=== PATIENT | male | born 1950 | race Caucasian/White ===

== ENCOUNTER 2020-03-09 08:57 | Outpatient (CLI) | payer MEDICARE, OTHER, SELFPAY ==
--- NOTE | ~2020-03-09 | CT_ITS ---
EXAMINATION: CT chest w con DATE: 03/09/2020 09:30 INDICATION: Right upper lobe lung cancer TECHNIQUE: Transaxial computed tomographic images of the chest were obtained after the administration of 75 cc of Omnipaque 350 intravenous contrast. The dose-length product (DLP) was 386.89 mGy-cm. Ite rative reconstruction was used. COMPARISON: 12/10/2019, 11/26/2018 FINDINGS: There is slight decrease in size of a spiculated right upper lobe nodule which measures 15 mm, previously 19 mm. There is severe emphysema. No new pulmonary nodule is identified. There is no p leural effusion or pneumothorax. No pathologically enlarged thoracic lymph nodes are identified. The heart size is normal. Calcified coronary artery atherosclerosis is noted. There is moderate thoracic spondylosis. IMPRESSION: 1. Right upper lobe nodule with slight decrease in size, consistent with primary bronchogenic carcino ma. Reviewed, dictated and finalized at location A. IMPRESSION: 1. Right upper lobe nodule with slight decrease in size, consistent with primar y bronchogenic carcinoma.
[2020-03-09 09:23] LABS: Estimated Glomerular Filt Rate 35
== END 2020-03-09 08:58 | disposition home or self-care (01) ==
PROVIDERS: PCP Family Medicine; Visit Provider Internal Medicine Hematology & Oncology
DX: C34.11 Malignant neoplasm of upper lobe, right bronchus or lung (principal)
CPT/HCPCS: 36415; 71260; Q9967

== ENCOUNTER 2020-03-16 12:43 | Outpatient (CLI) | payer MEDICARE, OTHER, SELFPAY ==
[2020-03-16 13:00] LABS: Hemoglobin 13.8 g/dL (14.0-18.0); Mean Corpuscular HGB Conc 31.4 g/dl (32-36); Mean Corpuscular Hemoglobin 31.8 pg (26-34); Mean Corpuscular Volume 101.4 fl (80-100); Mean Platelet Volume 10.8 fl (7.4-10.4); Platelet Count Result 124 k/mm3 (150-375); Red Blood Count 4.34 M/mm3 (4.6-6.20); Red Cell Distribution Width 14.9 % (11.5-14.5); White Blood Count 15.8 K/mm3 (4.5-10.0)
[2020-03-16 13:08] LABS: Lymphocytes Absolute Manual 0.79 K/mm3 (1.1-4.5); Monocytes Percent Manual 7 % (3-9); Neutrophils Percent Manual 88 % (46-73); Platelet Estimate Decreased (Adequate); Total Cells Counted 100
[2020-03-16 16:45] LABS: Hemoglobin A1C 7.9 % (<5.7)
[2020-03-16 17:18] LABS: Prostate Specific Antigen 0.3 ng/mL (< OR = 4.0)
== END 2020-03-16 12:44 | disposition home or self-care (01) ==
LOC: ANHLAB 12:46
PROVIDERS: PCP Family Medicine; Referring Provider Physician Assistant Medical; Visit Provider Internal Medicine Hematology & Oncology
DX: E11.65 Type 2 diabetes mellitus with hyperglycemia (principal); J44.9 Chronic obstructive pulmonary disease, unspecified; Z12.5 Encounter for screening for malignant neoplasm of prostate
CPT/HCPCS: 36415; 83036; 84153; 85025

== ENCOUNTER 2020-06-08 09:26 | Outpatient (CLI) | payer MEDICARE, OTHER, SELFPAY ==
--- NOTE | ~2020-06-08 | CT_ITS ---
EXAMINATION: CT chest w con DATE: 06/08/2020 10:10 INDICATION: Malignant neoplasm of the right upper lobe TECHNIQUE: Computed tomography (CT) of the chest was performed with 75 cc Omnipaque 350 intravenous c ontrast. The dose-length product was 243.14 mGy-cm. Automated exposure control and iterative reconstr uction technique were employed. COMPARISON: CT dated 03/09/2020 FINDINGS: Mildly enlarged right hilar lymph node measures 12 mm short axis. No significant pleural or pericardial effusion. Heart size is normal. Calcified granulomas in the spleen. Otherwise, the upper abdomen is unremarkable. There is been moderate-severe emphysema. There is a spiculated right upper lobe mass measuring 1.4 cm AP x1.7 cm transverse x1.6 cm craniocaudal compared with 1.6 x 1.7 x 1.4 c m on prior examination. There are reticulonodular densities in the right middle and lower lobe. No si gnificant pleural or pericardial effusion. There is a developing 5 mm left upper lobe nodule, image 3 1. There is mild-moderate thoracic spondylosis. There is a healed sternal fracture. IMPRESSION: 1. Stable spiculated right upper lobe mass allowing for differences of technique measuring 1.7 cm max imum dimension, compatible with known malignancy. 2: Right hilar lymphadenopathy. Cannot exclude metastatic disease. 3: Reticulonodular densities right middle and lower lobe, most likely infectious/inflammatory althoug h metastatic disease not excluded. 4: Developing 5 mm left upper lobe nodule, nonspecific. This may be infectious/inflammatory although metastatic disease not excluded. 5: Moderate-severe emphysema. Reviewed, dictated and finalized at location B. IMPRESSION: 1. Stable spiculated right upper lobe mass allowing for differences of techniqu e measuring 1.7 cm maximum dimension, compatible with known malignancy. 2: Right hilar lymphadenopathy. Cannot exclude metastatic disease. 3: Reticulonodular densities right middle and lower lobe, most likely infectiou s/inflammatory although metastatic disease not excluded. 4: Developing 5 mm left upper lobe nodule, nonspecific. This may be infectious/ inflammatory although metastatic disease not excluded. 5: Moderate-severe emphysema.
[2020-06-08 09:56] LABS: Estimated Glomerular Filt Rate 40
== END 2020-06-08 09:27 | disposition home or self-care (01) ==
PROVIDERS: PCP Family Medicine; Visit Provider Internal Medicine Hematology & Oncology
DX: C34.11 Malignant neoplasm of upper lobe, right bronchus or lung (principal); J43.9 Emphysema, unspecified; R91.8 Other nonspecific abnormal finding of lung field
CPT/HCPCS: 36415; 71260; Q9967

== ENCOUNTER 2020-06-15 12:43 | Outpatient (CLI) | payer MEDICARE, OTHER, SELFPAY ==
[2020-06-15 12:56] LABS: Basophils Absolute Auto 0.1 K/mm3 (0.0-0.1); Basophils Percent Auto 0.4 % (0.2-1.2); Eosinophils Percent Auto 0.1 % (0-4.4); Hematocrit 43.7 % (42.0-52.0); Hemoglobin 14.1 g/dL (14.0-18.0); Immature Granulocyte Absolute 0.57 K/mm3 (0.00-0.031); Lymphocytes Absolute Auto 1.02 K/mm3 (0.9-3.2); Lymphocytes Percent Auto 5.3 % (18.3-44.2); Mean Corpuscular HGB Conc 32.3 g/dl (32-36); Mean Corpuscular Hemoglobin 33.1 pg (26-34); Mean Corpuscular Volume 102.6 fl (80-100); Mean Platelet Volume 11.2 fl (7.4-10.4); Monocytes Absolute Auto 1.1 K/mm3 (0.1-0.6); Monocytes Percent Auto 5.5 % (2.6-8.5); Neutrophils Absolute Auto 16.5 K/mm3 (1.3-6.7); Neutrophils Percent Auto 85.7 % (45.5-73.1); Platelet Count Result 144 k/mm3 (150-375); Red Blood Count 4.26 M/mm3 (4.6-6.20); Red Cell Distribution Width 15.1 % (11.5-14.5); White Blood Count 19.2 K/mm3 (4.5-10.0)
[2020-06-15 12:59] LABS: Blood Urea Nitrogen 35 mg/dL (8-26); Carbon Dioxide 29 mmol/L (22-30); Chloride 98 mmol/L (98-109); Estimated Glomerular Filt Rate 31; Glucose 204 mg/dL (70-105); Potassium 4.1 mmol/L (3.5-4.9); Sodium 141 mmol/L (138-146)
== END 2020-06-15 12:44 | disposition home or self-care (01) ==
PROVIDERS: PCP Family Medicine; Visit Provider Internal Medicine Hematology & Oncology
DX: C34.11 Malignant neoplasm of upper lobe, right bronchus or lung (principal)
CPT/HCPCS: 36415; 80048; 85025

== ENCOUNTER 2020-08-08 08:56 | Outpatient (CLI) | payer MEDICARE, OTHER, SELFPAY ==
--- NOTE | ~2020-08-08 | CT_ITS ---
EXAMINATION:CT chest w con DATE: 08/08/2020 09:48 INDICATION: Malignant neoplasm of upper lobe of right lung. TECHNIQUE: Computed tomography (CT) of the chest was performed with 75 mL Omnipaque 350 intravenous c ontrast. Automated exposure control and iterative reconstruction technique were employed. The dose-le ngth product (DLP) was 266.22 mGy-cm. COMPARISON: Chest CT 06/08/2020, 03/09/2020, 12/10/2019 FINDINGS: There is moderate emphysema. There is a nodule with adjacent airspace opacities in posterio r segment right upper lobe. The airspace opacities prevent accurate measurement of the nodule. There are 7 mm and 4 mm nodules in left upper lobe. There is mild atelectasis bilaterally. A calcified left lung nodule and calcified left hilar lymph nodes are consistent with old granulomatous disease. No p leural effusion. There is biatrial enlargement of the heart. There are coronary artery calcifications . No pericardial effusion. The central pulmonary arteries are enlarged, consistent with pulmonary art erial hypertension. There is cortical thinning of the kidneys. Calcifications in the spleen are consi stent with old granulomatous disease. There is thoracic levocurvature scoliosis and moderate spondylo sis. There is mild chronic height loss of multiple thoracic vertebral bodies. IMPRESSION: 1. Nodule with new adjacent airspace opacities in posterior segment right upper lobe, consistent with primary bronchogenic carcinoma and radiation pneumonitis. 2. 7 mm and 4 mm nodules in left upper lobe, stable from 03/09/20 and worsened from 12/10/19, which may be benign or less likely metastatic disease. 3. Moderate emphysema. Reviewed, dictated and finalized at location A. IMPRESSION: 1. Nodule with new adjacent airspace opacities in posterior segment right upper lobe, consistent with primary bronchogenic carcinoma and radiation pneumonitis . 2. 7 mm and 4 mm nodules in left upper lobe, stable from 03/09/20 and worsened f rom 12/10/19, which may be benign or less likely metastatic disease. 3. Moderate emphysema.
[2020-08-08 09:34] LABS: Estimated Glomerular Filt Rate 43
== END 2020-08-08 08:57 | disposition home or self-care (01) ==
PROVIDERS: PCP Family Medicine; Visit Provider Internal Medicine Hematology & Oncology
DX: C34.11 Malignant neoplasm of upper lobe, right bronchus or lung (principal); J43.8 Other emphysema
CPT/HCPCS: 71260; Q9967

== ENCOUNTER 2020-08-25 07:35 | Outpatient (CLI) | payer MEDICARE, OTHER, SELFPAY ==
--- NOTE | ~2020-08-25 | PE_ITS ---
EXAMINATION: PET skull to mid thigh DATE: 08/25/2020 09:47 INDICATION: Lung cancer TECHNIQUE: Blood glucose level was 158 mg/dL. 9.686 mCi of 18-fluorodeoxyglucose (18-FDG) was adminis tered i.v. Low dose computed tomography (CT) images were acquired from the base of the brain to the p roximal thighs for attenuation correction and anatomic localization. Positron emission tomography (PE T) images were acquired in the same distribution beginning 78 minutes after injection. Images includi ng fused PET/CT images were reconstructed in axial, coronal, and sagittal planes. Automated exposure control technique was employed. The dose-length product was 902.23mGy-cm. COMPARISON: PET/CT dated 12/22/[address] dated 08/08/2020 FINDINGS: Head/neck: There is symmetric increased activity in the oral cavity, parotid glands, submandibular glands, alexa ngeal muscles and ocular muscles without CT correlate, likely physiologic. No pathologically enlarged cervical lymphadenopathy or suspicious foci of increased FDG uptake in the visualized head or neck. Chest: Moderate increased FDG uptake associated with approximately 1.9 x 1.4 cm spiculated nodule in the rig ht upper lobe with maximal SUV of 6.9 is increased from the maximum SUV on the prior study of 4.9. No significant increased FDG uptake associated with the new region of more peripheral consolidation ext ending posteriorly from the nodule which could represent atelectasis/scarring or postobstructive pneu monia. Moderate emphysema. Mild dependent atelectasis in the bilateral lower lobes. No other suspicio us pulmonary nodules or FDG avid lung lesions. No pathologically enlarged or FDG avid thoracic lympha denopathy. Cardiomegaly with atherosclerotic coronary artery calcifications. Enlargement of the centr al pulmonary arteries consistent with pulmonary arterial hypertension. Abdomen/pelvis/proximal thighs: Physiologic renal accumulation and excretion of FDG activity in the kidneys, bladder and along portio ns of ureters. Dilated right extrarenal pelvis without hydronephrosis. Normal degree and heterogenous pattern of increased uptake throughout the liver without radiologic correlate or dominant FDG avid l esion. The gallbladder, pancreas and bilateral adrenal glands are normal. Multiple splenic calcificat ions consistent with old granulomatous disease. Postoperative change of prior left hemicolectomy with left lower quadrant and colostomy. Multiple surgical clips and scarring at the rectal fossa/presacra l space without evident increased FDG uptake. There is also a distal ileal small bowel anastomosis. M ild to moderate uptake scattered throughout the bowels without radiologic correlate, also likely phys iologic. No other abnormal foci of increased FDG uptake or pathologically enlarged lymphadenopathy in the abdomen, pelvis or proximal thighs. 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 Mild thoracic levoscoliosis. Scattered degenerativ e skeletal changes including mild FDG uptake associated with severe facet osteoarthritis on the right at C4-C5. No suspicious lytic, blastic or FDG avid bone lesions. IMPRESSION: 1. Interval increase in degree of FDG uptake from 4.9 to currently 6.9 maximal SUV associated with a 19 x 14 mm spiculated right upper lobe nodule which is also increased in size of several prior chest CT studies consistent with progression of known lung cancer. No other lesions suspicious for metastat ic disease. 2. Moderate emphysema. 3. Cardiomegaly. 4. Postoperative change of prior left hemicolectomy with end colostomy. Reviewed, dictated and finalized at location A.
[2020-08-25 08:04] LABS: Glucose Point of Care 158 (65-105)
== END 2020-08-25 07:36 | disposition home or self-care (01) ==
LOC: ANHIMG 07:38
PROVIDERS: PCP Family Medicine; Visit Provider Internal Medicine Hematology & Oncology
DX: C34.11 Malignant neoplasm of upper lobe, right bronchus or lung (principal); J43.9 Emphysema, unspecified; I51.7 Cardiomegaly
CPT/HCPCS: 78815; A9552

== ENCOUNTER 2020-11-01 13:12 | Outpatient (CLI) | payer MEDICARE, OTHER, SELFPAY ==
[2020-11-01 13:31] LABS: Hematocrit 42.6 % (42.0-52.0); Hemoglobin 13.6 g/dL (14.0-18.0); Mean Corpuscular HGB Conc 31.9 g/dl (32-36); Mean Corpuscular Hemoglobin 32.9 pg (26-34); Mean Corpuscular Volume 103.1 fl (80-100); Mean Platelet Volume 10.9 fl (7.4-10.4); Platelet Count Result 144 k/mm3 (150-375); Red Blood Count 4.13 M/mm3 (4.6-6.20); Red Cell Distribution Width 14.9 % (11.5-14.5); White Blood Count 17.6 K/mm3 (4.5-10.0)
[2020-11-01 13:39] LABS: Atypical Lymphocytes Present; Lymphocytes Absolute Manual 1.23 K/mm3 (1.1-4.5); Monocytes Absolute Manual 0.52 K/mm3 (0.1-0.90); Monocytes Percent Manual 3 % (3-9); Neutrophils Percent Manual 90 % (46-73); Total Cells Counted 100
[2020-11-01 17:01] LABS: Alanine Aminotransferase 28 U/L (4-50); Albumin Level 3.8 g/dL (3.5-5.1); Alkaline Phosphatase 108 U/L (38-126); Anion Gap 10 mmol/L (8-16); Aspartate Amino Transferase 32 U/L (17-59); Bilirubin,Total 1.1 mg/dL (0.2-1.3); Blood Urea Nitrogen 28 mg/dL (9-20); Calcium 9.4 mg/dL (8.4-10.2); Carbon Dioxide 35 mmol/L (22-30); Chloride 96 mmol/L (98-107); Estimated Glomerular Filt Rate 43; Glucose 233 mg/dL (75-110); Potassium 3.5 mmol/L (3.4-5.0); Sodium 141 mmol/L (137-145)
[2020-11-03 09:48] LABS: Sodium 141 mmol/L (138-146)
[2020-11-03 09:49] LABS: Blood Urea Nitrogen 26 mg/dL (8-26); Carbon Dioxide 33 mmol/L (22-30); Chloride 98 mmol/L (98-109); Estimated Glomerular Filt Rate 40; Glucose 230 mg/dL (70-105); Potassium 3.4 mmol/L (3.5-4.9)
== END 2020-11-01 13:13 | disposition home or self-care (01) ==
LOC: ANHLAB 13:13
PROVIDERS: PCP Family Medicine; Visit Provider Internal Medicine Hematology & Oncology
DX: C34.11 Malignant neoplasm of upper lobe, right bronchus or lung (principal)
CPT/HCPCS: 36415; 80048; 80053; 85025

== ENCOUNTER 2020-12-16 15:33 | Inpatient (IN) | payer MEDICARE, OTHER, SELFPAY ==
[2020-12-16] VITALS (36 sets, daily range): BP systolic 87–130; BP diastolic 66–101; PULSE 77–123; RESP 16–34; TEMP 36.8; O2SAT 88–98; BMI 24.2
--- NOTE | ~2020-12-16 | XR_ITS ---
XR chest 1V portable DATE: 12/29/2020 06:03 INDICATION: Low oxygen saturation TECHNIQUE: Portable AP chest on December 29, 2020 at 0605 hours COMPARISON: December 27, 2020 portable AP chest at 1659 hours 12/16/2020 CT pulmonary scan FINDINGS: Focal asymmetric approximately 2-3 cm mass density overlies the medial right upper lung, suarez spicious for lung cancer versus focal consolidation. Borderline heart size. Aortic arch calcification. Mild infiltrate or atelectasis primarily in the lung bases. Diffuse osteopenia. IMPRESSION: 2-3 cm mass versus consolidation in the right upper lobe; malignancy is not excluded Patchy primarily bilateral lower lung zone infiltrates and/or atelectasis Reviewed, dictated and finalized at location A. INAL JUDGE IMPRESSION: 2-3 cm mass versus consolidation in the right upper lobe; malignanc y is not excluded Patchy primarily bilateral lower lung zone infiltrates and/or atelectasis
--- NOTE | ~2020-12-16 | XR_ITS ---
EXAMINATION: XR chest 1V portable INDICATION: Shortness of breath and productive cough TECHNIQUE: Portable AP chest at 1606 hours COMPARISON: 08/08/2020 FINDINGS: The known right upper lobe nodule is not well demonstrated. There are minimal opacities of the lung bases. No pleural effusion or pneumothorax is identified. Cardiomegaly is noted. IMPRESSION: 1. Minimal airspace opacities of the lung bases, consistent with atelectasis versus pneumonia. Reviewed, dictated and finalized at location A. TYPE FINISHER IMPRESSION: 1. Minimal airspace opacities of the lung bases, consistent with atelectasis ve rsus pneumonia.
--- NOTE | ~2020-12-16 | CT_ITS ---
EXAMINATION: CTA chest PE protocol DATE: 12/16/2020 18:10 INDICATION: Shortness of breath and back pain, history of lung cancer TECHNIQUE: Computed tomography angiography (CTA) of the chest was performed with 100 mL Omnipaque-350 intravenous contrast timed to evaluate the pulmonary arteries. Coronal maximum intensity projection 3D-reconstructions were created by the technologist. The dose-length product (DLP) was 664.94 mGy-cm. Automated exposure control and iterative reconstruction technique were employed. COMPARISON: 08/08/2020 FINDINGS: The pulmonary arteries are well-opacified. No pulmonary embolism is identified. A 4.2 x 4.1 cm mass of the right upper lobe previously measured 2.1 cm. There is no pleural effusion or pneumoth orax. There are no pathologically enlarged lymph nodes. Biatrial enlargement of the heart is noted. T here is moderate emphysema. There are stable 7 mm and 4 mm nodules of the left upper lobe. Minimal ai rspace opacities are present in the lower lobes. There are new compression fractures of the T5 and T6 vertebral bodies. IMPRESSION: 1. No pulmonary embolism. 2. Right upper lobe mass with interval enlargement, consistent with primary bronchogenic carcinoma. 3. Moderate emphysema. Reviewed, dictated and finalized at location A. ESS AND WELLNESS COORDINATOR IMPRESSION: 1. No pulmonary embolism. 2. Right upper lobe mass with interval enlargement, consistent with primary bro nchogenic carcinoma. 3. Moderate emphysema.
--- NOTE | ~2020-12-16 | XR_ITS ---
EXAMINATION: XR chest 1V portable DATE: 01/02/2021 06:32 INDICATION: Shortness of breath. TECHNIQUE: A single frontal view of the chest was obtained. COMPARISON: Chest single view 12/29/20, chest CT 12/16/2020 FINDINGS: The patient is rotated to his right. The lungs are hyperexpanded with lucencies, consistent with emphysema. A calcified left lung nodule is consistent with old granulomatous disease. There is scarring at right lung apex. There is a mass in posterior segment right upper lobe. There are mild ai rspace opacities in the lower lung zones. No pleural effusion or pneumothorax. The heart size is norm al. IMPRESSION: 1. Stable mass in right lung upper lobe, consistent with primary bronchogenic carcinoma and changes o f radiation therapy. 2. Stable mild airspace opacities in the lower lung zones, consistent with atelectasis versus pneumon ia. 3. Severe emphysema. Reviewed, dictated and finalized at location A. M AUDITOR IMPRESSION: 1. Stable mass in right lung upper lobe, consistent with primary bronchogenic c arcinoma and changes of radiation therapy. 2. Stable mild airspace opacities in the lower lung zones, consistent with atel ectasis versus pneumonia. 3. Severe emphysema.
--- NOTE | ~2020-12-16 | XR_ITS ---
XR chest 1V portable 12/27/2020 17:05 Indication: Pneumonia. COPD. Procedure: AP portable chest Comparison: CT and chest x-ray dated 12/16/2020 Findings: There is a masslike density in the right suprahilar region, concerning for malignancy. Ther e are mixed patchy interstitial and airspace infiltrates of both lungs which may represent pneumonia or edema. Possible small right pleural effusion. No pneumothorax. No acute osseous abnormality. Impression: 1: Masslike density right suprahilar region, concerning for malignancy. 2: Mixed diffuse interstitial and airspace infiltrates which may represent pneumonia or edema. Reviewed, dictated and finalized at location A. ING MACHINE OPERATOR Impression: 1: Masslike density right suprahilar region, concerning for malignancy. 2: Mixed diffuse interstitial and airspace infiltrates which may represent pneu monia or edema.
--- NOTE | ~2020-12-16 | CT_ITS ---
EXAMINATION: CT abdomen pelvis wo con DATE: 12/19/2020 10:59 INDICATION: Anaerobic streptococcal bacteremia. TECHNIQUE: Computed tomography (CT) of the abdomen and pelvis was performed without intravenous contr ast. Automated exposure control and iterative reconstruction technique were employed. The dose-length product was 608.80 mGy-cm. COMPARISON: PET/CT dated 08/25/2020 FINDINGS: Small bilateral pleural effusions with mild bibasilar atelectasis. Cardiomegaly. Atherosclerotic pam nary artery calcifications. No pericardial effusion. Multiple splenic calcific lesions consistent wit h old granulomatous disease. Gallbladder is not visualized and likely surgically absent. Liver, pancr eas and bilateral adrenal glands are normal. 1.2 cm exophytic cyst at the lower pole of the left kidn ey. There is an additional 10 mm indeterminate soft tissue density exophytic lesion at the lower pole of the left kidney. Chronic small calcification at the periphery of the upper pole of the right kidn ey. Postoperative change of prior distal colectomy with left lower quadrant and colostomy. Postoperat she changes along the left lower quadrant anterior abdominal wall likely related to prior parastomal hernia repair. There is liquid stool throughout the remaining colon consistent with diarrhea. There a re few diverticula along the transverse colon without adjacent inflammatory change to suggest diverti culitis. Additional distal ileal small bowel anastomotic suture line. No bowel obstruction. The appen taylor is not visualized. No pericecal inflammatory change to suggest acute appendicitis. No interval ch maggie in appearance of chronic postoperative scarring surrounding several surgical clips in the presac ral space. Bladder is normal. Surgical clip within a small fat-containing left inguinal hernia. No fr ee intraperitoneal gas or fluid. No pathologically enlarged abdominal or pelvic lymphadenopathy. Ther e is calcified atherosclerosis of the aorta and many of the other arteries. Fusiform ectasia of the i nfrarenal aorta which measures up to 3.0 x 2.7 cm in maximal diameter. Severe spondylosis at the lumb osacral junction with mild spondylosis of the more cephalad lumbar and lower thoracic spine. Chronic minimal to mild anterior wedging at T11-L2. IMPRESSION: 1. No acute intra-abdominal/pelvic process. 2. Postoperative change of prior cholecystectomy, distal colectomy and left lower quadrant and colost fani and possible appendectomy. 3. Small bilateral pleural effusions. 4. Cardiomegaly. 2.5. 10 mm indeterminate exophytic lesion at the lower pole of the left kidney stati stically most likely to represent a proteinaceous/hemorrhagic cyst although solid neoplasm cannot be excluded. Could consider follow-up pre and postcontrast MRI or CT for definitive determination. Reviewed, dictated and finalized at location B. MINER IMPRESSION: 1. No acute intra-abdominal/pelvic process. 2. Postoperative change of prior cholecystectomy, distal colectomy and left low er quadrant and colostomy and possible appendectomy. 3. Small bilateral pleural effusions. 4. Cardiomegaly. 2.5. 10 mm indeterminate exophytic lesion at the lower pole of the left kidney statistically most likely to represent a proteinaceous/hemorrh agic cyst although solid neoplasm cannot be excluded. Could consider follow-up pre and postcontrast MRI or CT for definitive determination.
--- NOTE | 2020-12-16 15:42 | ECG_ITS ---
Measurements Intervals [place] Rate: 123 P: [place]: 0 QRS: -82 QRSD: 105 T: 84 QT: 318 QTc: 455 Interpretive Statements ATRIAL FIBRILLATION WITH RAPID VENTRICULAR RESPONSE INCOMPLETE RIGHT BUNDLE BRANCH BLOCK LEFT ANTERIOR FASCICULAR BLOCK BORDERLINE ST-T WAVE ABNORMALITY- HIGH LATERAL LEADS BASELINE ARTIFACT- I, II, AVR, V1 ABNORMAL ECG Electronically Signed On 12-16-2020 16:35:37 PLANT SCIENCES PROFESSOR by Bartolo Radford D.O.
[2020-12-16 15:57] LABS: Alveolar/Arterial O2 Gradient 217.6 mmHg; Base Excess ABG 2.4 mEq/l (+/-2.0); Fractional Inspired Oxygen 44 %; HCO3 ABG 25.8 mEq/l (22.0-26.0); Methemoglobin ABG 0.3 %THb (0-1.5); Oxygen Content ABG 17.4 %vol (16.0-22.0); Oxygen Saturation ABG 90.3 % (95.0-100.0); Oxyhemoglobin 87.2 % THb (90.0-100.0); PCO2 ABG 36.5 mmHg (35.0-45.0); PO2 ABG 54.5 mmHg (80.0-100.0); PO2 FiO2 Ratio Arterial Blood 1.24 %; Reduced Hemoglobin 11.5 %THb (0-5.0); Total Hemoglobin 14.2 g/dL (12.0-18.0); pH ABG 7.468 (7.350-7.450)
[2020-12-16 15:59] LABS: Device NASAL CANNULA; Site Drawn RIGHT BRACHIAL
[2020-12-16 16:01] LABS: Basophils Absolute Auto 0.1 K/mm3 (0.0-0.1); Basophils Percent Auto 0.3 % (0.2-1.2); Eosinophils Percent Auto 0.1 % (0-4.4); Hematocrit 43.6 % (42.0-52.0); Hemoglobin 14.3 g/dL (14.0-18.0); Immature Granulocyte Absolute 0.38 K/mm3 (0.00-0.031); Immature Granulocyte Percent A 1.4 % (0-0.5); Lymphocytes Absolute Auto 0.67 K/mm3 (0.9-3.2); Lymphocytes Percent Auto 2.4 % (18.3-44.2); Mean Corpuscular HGB Conc 32.8 g/dl (32-36); Mean Corpuscular Hemoglobin 33.6 pg (26-34); Mean Corpuscular Volume 102.6 fl (80-100); Mean Platelet Volume 11.7 fl (7.4-10.4); Monocytes Absolute Auto 2.1 K/mm3 (0.1-0.6); Monocytes Percent Auto 7.6 % (2.6-8.5); Neutrophils Absolute Auto 24.7 K/mm3 (1.3-6.7); Neutrophils Percent Auto 88.2 % (45.5-73.1); Platelet Count Result 154 k/mm3 (150-375); Red Blood Count 4.25 M/mm3 (4.6-6.20); Red Cell Distribution Width 14.6 % (11.5-14.5)
[2020-12-16 16:11] LABS: INR 0.9; Prothrombin Time 12.8 Seconds (11.1-14.7)
[2020-12-16 16:12] LABS: Partial Thromboplastin Time 24.9 SECONDS (22.3-36.8)
[2020-12-16 16:13] LABS: Lactic Acid Reflex 2.7 mmol/L (0.7-2.1)
[2020-12-16 16:15] LABS: Alanine Aminotransferase 31 U/L (4-50); Alkaline Phosphatase 103 U/L (38-126); Anion Gap 6 mmol/L (8-16); Aspartate Amino Transferase 27 U/L (17-59); Bilirubin,Total 1.2 mg/dL (0.2-1.3); Blood Urea Nitrogen 36 mg/dL (9-20); CRP 4.2 mg/dL (<1.0); Carbon Dioxide 36 mmol/L (22-30); Chloride 95 mmol/L (98-107); Estimated CRCL calculation 40 ml/min; Estimated Glomerular Filt Rate 43; Glucose 296 mg/dL (75-110); Sodium 137 mmol/L (137-145)
[2020-12-16 16:28] LABS: NT Pro B Type Natriuretic Pept 1310 PG/ML (5-100); Troponin I 0.027 ng/mL (0.000-0.034)
--- NOTE | 2020-12-16 17:14 | ED.SOB ---
HPI - SOB/Dyspnea General Chief Complaint: Shortness of Breath/Dyspnea Stated Complaint: resp. distress Time Seen by Provider: 12/16/20 16:46 Source: patient Mode of arrival: EMS Limitations: no limitations History of Present Illness HPI Narrative: This is a 69 year old male that presents to the ER for respiratory distress. Per EMS patient's oxygen saturation was in the mid 80s on his normal 4L NC. Was placed on CPAP with improvement. Patient reports he has been more short of breath the last week. Also reports pain in his back which he has contributed to his lung cancer. No known injury or trauma. Does report a cough productive of green sputum. Denies fever or chest pain. Related Data Home Medications Medication Instructions Recorded Confirmed allopurinol 300 mg tablet 300 mg PO DAILY 10/07/19 12/12/20 blood-glucose meter #1 each 10/07/19 12/12/20 ergocalciferol (vitamin D2) 1,250 50,000 unit PO WEEKLY 10/07/19 12/12/20 mcg (50,000 unit) capsule tamsulosin 0.4 mg capsule 0.4 mg PO DAILY 10/07/19 12/12/20 aspirin 81 mg tablet,delayed 325 mg PO DAILY tablet 12/25/19 12/12/20 release diltiazem HCl 120 mg 120 mg PO ONCE cap 05/25/20 12/12/20 capsule,extended release 12 hr Allergies Allergy/AdvReac Type Severity Reaction Status Date / Time No Known Allergies Allergy Verified 12/12/20 13:44 Review of Systems Review of Systems: Narrative: CONSTITUTIONAL: Denies fever CARDIOVASCULAR: Denies chest pain, or edema. RESPIRATORY: Reports cough and dyspnea. MUSCULOSKELETAL: Reports back pain All systems reviewed & are unremarkable except as noted in HPI and below PMFSH Past Medical History Medical History (Updated 12/16/20 @ 19:38 by Marisa Saba PA-C) Congestive heart failure, unspecified COPD exacerbation Diabetes mellitus Former smoker Leukocytosis Rectal cancer chemoradiation and resection in 2005. Thrombocytopenia Family History Family History Father Family history of premature coronary heart disease Family history of cardiovascular disease Mother Family history of emphysema Grandparent Diabetes mellitus Social History Social History Smoking packs per day: 2 Smoking cigarettes per day: 40.0 Years smoked: 54 Smoking pack-years: 108.00 Smoking status: Former smoker (2014 100+ pack years) Tobacco type: cigarettes Smoking end date: 11/25/14 Alcohol intake: never Gender identity (if verbalized by the patient): Male Spiritual care concerns: No Exam Narrative: Exam Narrative: GENERAL: Chronically ill-appearing, well-nourished, and in no acute distress. HEAD: Normocephalic, atraumatic. EYES: EOMI. ENT: Nares clear, no rhinorrhea or epistaxis. Mucous membranes moist. Oropharynx without tonsillar hypertrophy exudate or other lesions. Bilateral TMs pearly mccullough non-bulging NECK: Supple. No adenopathy or masses. CHEST: No respiratory distress. Rales in the bilateral lower lungs. No wheezes or rhonchi HEART: Irregularly irregular. No murmur heard. Normal peripheral pulses. EXTREMITIES: Normal range of motion. No edema. SKIN: Warm, dry, no rash. NEURO: No focal deficits. Alert and oriented x3. PSYCH: Normal mood and affect Course Vital Signs Vital signs: Vital Signs Temperature 98.2 F 12/16/20 15:35 Pulse Rate 119 H 12/16/20 15:35 Respiratory Rate 32 H 12/16/20 15:35 Blood Pressure 98/82 L 12/16/20 15:35 Pulse Oximetry 88 L 12/16/20 15:35 Temperature 98.2 F 12/16/20 15:35 Pulse Rate 88 12/16/20 20:22 Respiratory Rate 24 H 12/16/20 20:22 Blood Pressure 130/78 12/16/20 20:22 Pulse Oximetry 96 12/16/20 20:22 MDM - SOB/Dyspnea MDM Narrative Medical decision making narrative: Patient presents the emergency department for shortness of breath. History of lung cancer, COPD, and chronic respiratory failure.
[2020-12-16] MEDS: methylPREDNISolone SOD SUCC 125 MG VIAL IV PUSH (17:38)
[2020-12-16] MEDS: SODIUM CHLORIDE 0.9% IV 500 ML 999 ML IV CONT (17:39)
[2020-12-16] MEDS: ALBUTEROL SULFATE (*SP) AEROSOL 1 PUFF 2 PUFF INHALATION (17:51)
--- NOTE | 2020-12-16 18:26 | PC.NURSE ---
ostomy bag replaced due to leakage.
[2020-12-16 18:59] LABS: Reflex Lactic Acid Yes or No Add Lactic
[2020-12-16 19:09] LABS: Lactate Dehydrogenase 500 U/L (313-618)
[2020-12-16 19:36] LABS: Lactic Acid 2.7 mmol/L (0.7-2.1)
--- NOTE | 2020-12-16 22:30 | ADMGEN ---
This patient, Orville Brandt, was admitted to 3 Med Surg Room 326-01. Patient/family oriented to hospital policies and general routines including ID bracelet, bed and alarms, visiting hours, pain management, procedures, bathroom and other care routines, personal items, smoking policy, room service/diet, and visiting hours. Information on how to activate the Rapid Response Team has been discussed. Patient/Family are encouraged to report perceived risks to care and to ask questions if they do not understand what they are told or what they should do.
[2020-12-17] VITALS (11 sets, daily range): BP systolic 97–128; BP diastolic 59–89; PULSE 70–120; RESP 18–20; TEMP 36.2–36.9; O2SAT 94–99
[2020-12-17] MEDS: SODIUM CHLORIDE 0.9% IV 1,000 ML 100 ML IV CONT ×2 (05:28→15:58)
[2020-12-17] MEDS: METOPROLOL SUCCINATE EXT REL 100 MG TABCR PO ×2 (06:39→21:13)
--- NOTE | 2020-12-17 06:50 | PC.NURSE ---
12/16/20 @ 5805: spoke w/ pt's daughter/poa laure caipetra with update.
--- NOTE | 2020-12-17 06:51 | PC.NURSE ---
AFTER DISCUSSION W/ DR. RENDON, PT STATES HIS WISHES TO CHANGE CODE STATUS TO DNR.
[2020-12-17 07:04] LABS: Basophils Percent Auto 0.1 % (0.2-1.2); Hematocrit 39.1 % (42.0-52.0); Hemoglobin 13.1 g/dL (14.0-18.0); Immature Granulocyte Absolute 0.19 K/mm3 (0.00-0.031); Immature Granulocyte Percent A 1.2 % (0-0.5); Lymphocytes Absolute Auto 0.39 K/mm3 (0.9-3.2); Lymphocytes Percent Auto 2.5 % (18.3-44.2); Mean Corpuscular HGB Conc 33.5 g/dl (32-36); Mean Corpuscular Hemoglobin 33.8 pg (26-34); Mean Corpuscular Volume 100.8 fl (80-100); Mean Platelet Volume 11.6 fl (7.4-10.4); Monocytes Absolute Auto 0.3 K/mm3 (0.1-0.6); Monocytes Percent Auto 1.7 % (2.6-8.5); Neutrophils Absolute Auto 14.9 K/mm3 (1.3-6.7); Neutrophils Percent Auto 94.5 % (45.5-73.1); Platelet Count Result 124 k/mm3 (150-375); Red Blood Count 3.88 M/mm3 (4.6-6.20); Red Cell Distribution Width 14.4 % (11.5-14.5); White Blood Count 15.8 K/mm3 (4.5-10.0)
[2020-12-17 07:17] LABS: Lactic Acid Reflex 1.3 mmol/L (0.7-2.1)
--- NOTE | 2020-12-17 07:20 | PM.IMHP ---
H&P: HPI History of Present Illness Date/Time: 12/17/20 06:00 Chief Complaint: Shortness of breath Narrative: Orville Brandt is a 69 year old male with a past medical history of COPD on chronic home O2 of 3.5 L, primary bronchogenic carcinoma and chronic atrial fibrillation who presented to the ER lived increased shortness of breath and back pain with coughing. The patient arrived to the ER via EMS with CPAP in place. The patient reports that for the last 3 or 4 days he had been having increased shortness of breath. He reported felt like he could not take any air in. He is having pain between his shoulder blades with breathing. He always has a chronic productive cough. His cough is always productive of light green sputum. His amount of sputum production has not changed. He has not had any fevers or chills. He denies any palpitations or orthopnea. He has not noticed any lower extremity swelling. He denies any recent ill contacts or known COVID-19 exposures. He has not had any loss of sense of taste or smell. When EMS arrived on scene the patient was satting 80% on 4 L nasal cannula. His oxygen saturations improved on CPAP therapy. He does report significant improvement in his shortness of breath with albuterol use. He has been using his albuterol several times a day at home. He is post be on 3 L of oxygen at rest and up to 5 L of oxygen with activity. Instead he usually just keeps his oxygen on 3.5 L at all times. Review of Systems Review of Systems: Narrative: 12 systems were reviewed with pertinent positives and negatives per HPI. Except as documented in the HPI, all other systems were reviewed and are negative. [facility] Past Medical History Medical History (Updated 12/17/20 @ 08:01 by Maria Esther Trotter DO) Chronic atrial fibrillation Chronic kidney disease, stage 3 Chronic obstructive pulmonary disease Chronic respiratory failure with hypoxia and hypercapnia Closed compression fracture of thoracic vertebra Combined systolic and diastolic congestive heart failure Diabetes mellitus Former smoker Gout RICHY (obstructive sleep apnea) Pulmonary hypertension Severe Rectal cancer chemoradiation and resection in 2005. Thrombocytopenia Surgical History Surgical History (Updated 12/17/20 @ 07:34 by Maria Esther Trotter DO) Colostomy in place History of appendectomy History of back surgery History of colectomy Colectomy due to rectal cancer in 1999 6 with subsequent small-bowel obstruction requiring ileostomy and subsequent revision of ileostomy back to a colostomy History of ileostomy Hx of cholecystectomy Family History Family History (Updated 12/17/20 @ 07:39 by Maria Esther Trotter DO) Father , at age 59 Acute myocardial infarction, Onset Age: 59 Heart disease Mother , At age 76 COPD (chronic obstructive pulmonary disease) Grandparent Diabetes mellitus Sibling COPD (chronic obstructive pulmonary disease) Multiple siblings Colon cancer Younger brother Social History Social History (Updated 12/17/20 @ 07:46 by Maria Esther Trotter DO) Social History: He has been since 2013 he lives in [place]. He has 4 biologic children and 3 step children. He served in the during [place] where he received for gunshot wound. He is a former smoker and smoked 1.5 packs per day on average at smoked for at least 54 years. He quit smoking in 2014. He used to drink heavily but denies history of alcoholism. He at 1 point drink 12 beers a day. He now only rarely drinks alcohol. He is 1 of 7 children. He is the oldest son. All of his siblings are still living. Primary care physician: Dr. You Box Code status: DNR per patient request. He states that he is okay with pressors and noninvasive therapies. Healthcare power of workers compensation attorney: Daughter Smoking packs per day: 2 Smoking cigarettes per day: 40.0 Years smoked: 54 Smoking pack-years: 108.00 Marty
[2020-12-17 07:22] LABS: Anion Gap 7 mmol/L (8-16); Blood Urea Nitrogen 39 mg/dL (9-20); Calcium 9.2 mg/dL (8.4-10.2); Carbon Dioxide 33 mmol/L (22-30); Chloride 97 mmol/L (98-107); Estimated CRCL calculation 37 ml/min; Estimated Glomerular Filt Rate 40; Glucose 226 mg/dL (75-110); Sodium 137 mmol/L (137-145)
[2020-12-17] MEDS: INSULIN ASPART (*BKC) 100 UNITS/ML SUB-Q ×3 (07:57→17:58)
[2020-12-17] MEDS: ATORVASTATIN 40 MG TABLET PO (08:03)
[2020-12-17] MEDS: allopurinoL 300 MG TABLET PO (08:03)
[2020-12-17] MEDS: OMEGA 3 POLYUNSAT FATTY ACIDS 1 GM CAP PO ×4 (08:04→21:20)
[2020-12-17] MEDS: PANTOPRAZOLE SOD SESQUIHYDRATE 20 MG TAB PO (08:04)
[2020-12-17] MEDS: ASCORBIC ACID 500 MG TABLET BY MOUTH (08:04)
[2020-12-17] MEDS: TAMSULOSIN HCL 0.4 MG CAPSULE PO (08:04)
[2020-12-17] MEDS: predniSONE 10 MG TABLET PO (08:04)
[2020-12-17] MEDS: FLUTICASONE/UMECLIDIN/VILANTER 100-62.5-25 MCG ELLIPTA 1 PUFF INHALATION (08:06)
[2020-12-17 08:22] LABS: Glucose Point of Care 206 (65-105)
[2020-12-17 12:11] LABS: Glucose Point of Care 242 (65-105)
--- NOTE | 2020-12-17 16:36 | PM.IMPN ---
Progress Note: A&P Assessment and Plan (1) Sepsis: Code(s): A41.9 - Sepsis, unspecified organism Status: Acute Assessment and Plan: Present on admission with lactic acidosis, leukocytosis with left shift and tachycardia. [place] related to the pneumonia and bacteremia. Only 1 blood culture has been resulted and is positive for gram-positive cocci in chains in anaerobic bottle only. White count better today. Continue Rocephin and azithromycin. Vancomycin to be added. Follow up on blood culture results. (2) Pneumonia: Qualifiers: Laterality: bilateral Lung location: lower lobe of lung Pneumonia type: due to unspecified organism Qualified Code(s): J18.9 - Pneumonia, unspecified organism Code(s): J18.9 - Pneumonia, unspecified organism Status: Acute Assessment and Plan: CTA showing no pulmonary emboli. Minimal airspace opacities bilateral lower lobes noted. Patient has chronic respiratory failure on home O2 at 3L at rest and 4L with activity and uses Trilogy at night. Patient is close to baseline. Albuterol available as needed. Patient eating well so will stop IV fluids. (3) Malignant neoplasm of upper lobe, right bronchus or lung: Code(s): C34.11 - Malignant neoplasm of upper lobe, right bronchus or lung Status: Acute Assessment and Plan: CTA Chest showing right upper lobe 4.2 cm mass that has doubled in size since July. Patient has a medically inoperable early stage lung cancer reviewed he is not a candidate for surgery or even biopsy due to his severe COPD. He completed course of SBRT from 01/19-02/02/20 and again 09/08-09/15/20. Plans for PET scan at the end of the month. (4) Atrial fibrillation: Qualifiers: Atrial fibrillation type: unspecified Qualified Code(s): I48.91 - Unspecified atrial fibrillation Code(s): I48.91 - Unspecified atrial fibrillation Status: Acute Assessment and Plan: EKG shows atrial fibrillation with RVR. Patient on tele and showing persistent AFib with HR mostly below 105. Continue Toprol and Cardizem. Not on usp anticoagulation but does take ASA a few times per week. Continue tele. (5) Type 2 diabetes mellitus with hyperglycemia: Code(s): E11.65 - Type 2 diabetes mellitus with hyperglycemia Status: Acute Assessment and Plan: A1c 7.9 in February. The patient's blood glucose was reviewed on 12/17 Glucose in the 200-240 range. Continue AccuCheks covering with sliding scale. Hypoglycemia protocol available as needed. Continue current medications. (6) Compression fracture: Status: Acute Assessment and Plan: CTA chest showing new compression fractures of the T5 and T6 vertebral bodies. Increase activity as tolerated. Patient relatively asymptomatic from this. (7) DVT prophylaxis: Code(s): Z29.9 - Encounter for prophylactic measures, unspecified Status: Acute Assessment and Plan: Lovenox Subjective Date/time seen: 12/17/20 16:36 Interval history: Date of service 12/17 69-year-old male with atrial fibrillation, lung cancer, chronic respiratory failure, COPD, CHF, diabetes, pulmonary hypertension and CKD here for increasing shortness of breath. Patient states his cough is looser today. No chest pain. No nausea or vomiting. Eating well. He has chronic anosmia. He is not sure if his atrial fibrillation is chronic because he does not feel it. He has blackish stools chronically from iron. Exam Narrative: Exam Narrative: AF 98.4 109/66 110 20 95% 4L Gen - NARD sitting up in bed Chest -distant breath sounds. No wheezing CV -irregularly-irregular. Tachycardic. Tele showing AFib with HR mostly below 105. Abd -soft. Non tender. Positive bowel sounds. Colostomy in the left lower quadrant with black stool in the bag. Ext - No pedal edema Neuro - Alert and oriented. Nonfocal exam. Psych - Nml mood and affect
[2020-12-17] MEDS: ENOXAPARIN 40 MG/0.4 ML SYRINGE SUB-Q (17:56)
[2020-12-17 18:11] LABS: Glucose Point of Care 263 (65-105)
[2020-12-17] MEDS: traZODone HCL 50 MG TABLET PO (21:20)
[2020-12-17 21:29] LABS: Glucose Point of Care 142 (65-105)
[2020-12-18] VITALS (13 sets, daily range): BP systolic 103–128; BP diastolic 59–84; PULSE 82–104; RESP 16–22; TEMP 36.3–36.9; O2SAT 92–100
[2020-12-18 00:20] LABS: SARS-CoV-2 RNA PCR Negative
[2020-12-18 06:59] LABS: Basophils Percent Auto 0.2 % (0.2-1.2); Eosinophils Percent Auto 0.1 % (0-4.4); Hematocrit 36.8 % (42.0-52.0); Hemoglobin 12.1 g/dL (14.0-18.0); Immature Granulocyte Absolute 0.24 K/mm3 (0.00-0.031); Immature Granulocyte Percent A 1.3 % (0-0.5); Immature Platelet Fraction Pct 8.6 % (0.9-11.2); Lymphocytes Absolute Auto 0.46 K/mm3 (0.9-3.2); Lymphocytes Percent Auto 2.5 % (18.3-44.2); Mean Corpuscular HGB Conc 32.9 g/dl (32-36); Mean Corpuscular Hemoglobin 33.6 pg (26-34); Mean Corpuscular Volume 102.2 fl (80-100); Mean Platelet Volume 11.9 fl (7.4-10.4); Monocytes Absolute Auto 1.2 K/mm3 (0.1-0.6); Monocytes Percent Auto 6.8 % (2.6-8.5); Neutrophils Absolute Auto 16.1 K/mm3 (1.3-6.7); Neutrophils Percent Auto 89.1 % (45.5-73.1); Platelet Count Result 131 k/mm3 (150-375); Red Cell Distribution Width 14.4 % (11.5-14.5); White Blood Count 18.1 K/mm3 (4.5-10.0)
[2020-12-18 07:09] LABS: Hemoglobin A1C 6.4 % (<5.7)
[2020-12-18 07:26] LABS: Albumin Level 3.2 g/dL (3.5-5.1); Anion Gap 5 mmol/L (8-16); Blood Urea Nitrogen 45 mg/dL (9-20); Calcium 8.9 mg/dL (8.4-10.2); Carbon Dioxide 31 mmol/L (22-30); Chloride 103 mmol/L (98-107); Estimated CRCL calculation 35 ml/min; Estimated Glomerular Filt Rate 37; Glucose 131 mg/dL (75-110); Magnesium 1.3 mg/dL (1.6-2.3); Phosphorus 4.2 mg/dL (2.5-4.5); Potassium 3.9 mmol/L (3.4-5.0); Sodium 139 mmol/L (137-145)
[2020-12-18 08:27] LABS: Folic Acid > 20.0 ng/mL (2.76->20)
[2020-12-18 08:48] LABS: Glucose Point of Care 131 (65-105)
[2020-12-18] MEDS: OMEGA 3 POLYUNSAT FATTY ACIDS 1 GM CAP PO ×4 (08:53→20:38)
[2020-12-18] MEDS: METOPROLOL SUCCINATE EXT REL 100 MG TABCR PO ×2 (08:53→20:40)
[2020-12-18] MEDS: predniSONE 10 MG TABLET PO (08:54)
[2020-12-18] MEDS: ASPIRIN 325 MG TABLET PO (08:54)
[2020-12-18] MEDS: ENOXAPARIN 40 MG/0.4 ML SYRINGE SUB-Q (08:54)
[2020-12-18] MEDS: ATORVASTATIN 40 MG TABLET PO (08:54)
[2020-12-18] MEDS: ASCORBIC ACID 500 MG TABLET BY MOUTH (08:55)
[2020-12-18] MEDS: PANTOPRAZOLE SOD SESQUIHYDRATE 20 MG TAB PO (08:55)
[2020-12-18] MEDS: TAMSULOSIN HCL 0.4 MG CAPSULE PO (08:55)
[2020-12-18] MEDS: allopurinoL 300 MG TABLET PO (08:55)
[2020-12-18] MEDS: FLUTICASONE/UMECLIDIN/VILANTER 100-62.5-25 MCG ELLIPTA 1 PUFF INHALATION (08:55)
--- NOTE | 2020-12-18 12:19 | PM.IMPN ---
Progress Note: A&P Assessment and Plan (1) Sepsis: Code(s): A41.9 - Sepsis, unspecified organism Status: Acute Assessment and Plan: Sepsis with septicemia on admission with lactic acidosis, leukocytosis with left shift and tachycardia. [place] related to the pneumonia and septicemia. BCx (2of2) positive for gram-positive cocci in chains in anaerobic bottle only. White count worse today. Continue Vancomycin but change to Unasyn given anaerobic positive cx. Follow up on blood culture results. (2) Pneumonia: Qualifiers: Laterality: bilateral Lung location: lower lobe of lung Pneumonia type: due to unspecified organism Qualified Code(s): J18.9 - Pneumonia, unspecified organism Code(s): J18.9 - Pneumonia, unspecified organism Status: Acute Assessment and Plan: CTA showing no pulmonary emboli. Minimal airspace opacities bilateral lower lobes noted. Patient has chronic respiratory failure on home O2 at 3L at rest and 4L with activity and uses Trilogy at night. Patient is close to baseline. Albuterol available as needed. Continue IV abx. (3) Malignant neoplasm of upper lobe, right bronchus or lung: Code(s): C34.11 - Malignant neoplasm of upper lobe, right bronchus or lung Status: Acute Assessment and Plan: CTA Chest showing right upper lobe 4.2 cm mass that has doubled in size since July. Patient has a medically inoperable early stage lung cancer reviewed he is not a candidate for surgery or even biopsy due to his severe COPD. He completed course of SBRT from 01/19-02/02/20 and again 09/08-09/15/20. Plans for PET scan at the end of the month. (4) Atrial fibrillation: Qualifiers: Atrial fibrillation type: unspecified Qualified Code(s): I48.91 - Unspecified atrial fibrillation Code(s): I48.91 - Unspecified atrial fibrillation Status: Acute Assessment and Plan: EKG shows atrial fibrillation with RVR. Patient on tele and showing persistent AFib with HR mostly below 105. Continue Toprol and Cardizem. Not on intermediate anticoagulation due to increased bleeding risk but does take ASA 3 times per week. Okay to stop tele. (5) Type 2 diabetes mellitus with hyperglycemia: Code(s): E11.65 - Type 2 diabetes mellitus with hyperglycemia Status: Acute Assessment and Plan: A1c 6.4. The patient's blood glucose was reviewed on 12/18 Glucose better today in the 130-140 range. Continue AccuCheks covering with sliding scale. Hypoglycemia protocol available as needed. Continue current medications. (6) Compression fracture: Status: Acute Assessment and Plan: Patinicolen developed back pain about 3 weeks ago. No trauma. CTA chest showing new compression fractures of the T5 and T6 vertebral bodies. Increase activity as tolerated. Patient relatively asymptomatic from this. (7) DVT prophylaxis: Code(s): Z29.9 - Encounter for prophylactic measures, unspecified Status: Acute Assessment and Plan: Lovenox Subjective Date/time seen: 12/18/20 12:19 Interval history: Date of service 12/18 69-year-old male with atrial fibrillation, lung cancer, chronic respiratory failure, COPD, CHF, diabetes, pulmonary hypertension and CKD here for increasing shortness of breath. He has been diaphoretic at night past 3 nights. Still with cough productive of green sputum without change. No CP. No n/v. No diarrhea. Exam Narrative: Exam Narrative: AF 97.4 128/84 95 22 100% 4L Gen - NARD sitting up in bed Chest - bibasilar inspiratory inspiratory crackles, nml RR CV - irregularly-irregular. Tachycardic. Tele showing AFib with HR mostly below 105. Abd -soft. Non tender. Positive bowel sounds. Colostomy in the left lower quadrant with black stool in the bag. Ext - No pedal edema Psych - Nml mood and affect Skin - ecchymosis noted in the bilateral upper extremities. Objective
[2020-12-18 12:36] LABS: Glucose Point of Care 144 (65-105)
[2020-12-18] MEDS: AMPICILLIN SULB 3 GM/NS 100 ML 3 GM/100 ML VIAL IVPB ×2 (13:02→17:00)
--- NOTE | 2020-12-18 14:07 | PCRCNOTE ---
Window of time for administration has passed. See next scheduled administration.
[2020-12-18] MEDS: MAGNESIUM SULF 2 GM/WATER 50ML 2 GM/50 ML BAG IVPB (14:12)
[2020-12-18] MEDS: IPRATROPIUM BR 0.02% INH SOLN 0.5 MG/2.5 ML VIAL INHALATION ×2 (14:18→21:28)
[2020-12-18] MEDS: guaiFENesin 12 HR 600 MG TABCR PO ×2 (15:30→20:38)
[2020-12-18 17:20] LABS: Glucose Point of Care 268 (65-105)
[2020-12-18] MEDS: INSULIN ASPART (*BKC) 100 UNITS/ML SUB-Q (17:29)
[2020-12-18] MEDS: traZODone HCL 50 MG TABLET PO (20:40)
[2020-12-19] VITALS (12 sets, daily range): BP systolic 116–136; BP diastolic 68–76; PULSE 60–92; RESP 18–20; TEMP 36.1–36.6; O2SAT 92–97; BMI 24.2
[2020-12-19] MEDS: AMPICILLIN SULB 3 GM/NS 100 ML 3 GM/100 ML VIAL IVPB ×4 (02:02→17:18)
[2020-12-19] MEDS: IPRATROPIUM BR 0.02% INH SOLN 0.5 MG/2.5 ML VIAL INHALATION ×3 (03:12→20:55)
[2020-12-19 06:16] LABS: Basophils Percent Auto 0.2 % (0.2-1.2); Eosinophils Absolute Auto 0.1 K/mm3 (0-0.3); Hematocrit 34.5 % (42.0-52.0); Hemoglobin 11.3 g/dL (14.0-18.0); Immature Granulocyte Percent A 1.6 % (0-0.5); Immature Platelet Fraction Pct 6.9 % (0.9-11.2); Lymphocytes Absolute Auto 0.42 K/mm3 (0.9-3.2); Lymphocytes Percent Auto 3.4 % (18.3-44.2); Mean Corpuscular HGB Conc 32.8 g/dl (32-36); Mean Corpuscular Hemoglobin 33.4 pg (26-34); Mean Corpuscular Volume 102.1 fl (80-100); Mean Platelet Volume 11.8 fl (7.4-10.4); Monocytes Absolute Auto 0.9 K/mm3 (0.1-0.6); Monocytes Percent Auto 7.6 % (2.6-8.5); Neutrophils Absolute Auto 10.7 K/mm3 (1.3-6.7); Neutrophils Percent Auto 86.2 % (45.5-73.1); Platelet Count Result 124 k/mm3 (150-375); Red Blood Count 3.38 M/mm3 (4.6-6.20); Red Cell Distribution Width 14.5 % (11.5-14.5); White Blood Count 12.4 K/mm3 (4.5-10.0)
[2020-12-19 06:27] LABS: Albumin Level 2.8 g/dL (3.5-5.1); Anion Gap 3 mmol/L (8-16); Blood Urea Nitrogen 39 mg/dL (9-20); Calcium 8.2 mg/dL (8.4-10.2); Carbon Dioxide 32 mmol/L (22-30); Chloride 101 mmol/L (98-107); Estimated CRCL calculation 40 ml/min; Estimated Glomerular Filt Rate 43; Glucose 147 mg/dL (75-110); Magnesium 1.8 mg/dL (1.6-2.3); Phosphorus 3.9 mg/dL (2.5-4.5); Potassium 4.1 mmol/L (3.4-5.0); Sodium 136 mmol/L (137-145)
[2020-12-19 07:59] LABS: Glucose Point of Care 124 (65-105)
[2020-12-19] MEDS: OMEGA 3 POLYUNSAT FATTY ACIDS 1 GM CAP PO ×4 (08:09→20:41)
[2020-12-19] MEDS: ASCORBIC ACID 500 MG TABLET BY MOUTH (08:15)
[2020-12-19] MEDS: TAMSULOSIN HCL 0.4 MG CAPSULE PO (08:15)
[2020-12-19] MEDS: guaiFENesin 12 HR 600 MG TABCR PO ×2 (08:16→20:40)
[2020-12-19] MEDS: allopurinoL 300 MG TABLET PO (08:16)
[2020-12-19] MEDS: PANTOPRAZOLE SOD SESQUIHYDRATE 20 MG TAB PO (08:16)
[2020-12-19] MEDS: predniSONE 10 MG TABLET PO (08:16)
[2020-12-19] MEDS: METOPROLOL SUCCINATE EXT REL 100 MG TABCR PO ×2 (08:16→20:42)
[2020-12-19] MEDS: ATORVASTATIN 40 MG TABLET PO (08:16)
[2020-12-19] MEDS: ENOXAPARIN 40 MG/0.4 ML SYRINGE SUB-Q (08:17)
--- NOTE | 2020-12-19 11:41 | PCRCNOTE ---
Window of time for administration has passed. See next scheduled administration.[id number]
[2020-12-19] MEDS: INSULIN ASPART (*BKC) 100 UNITS/ML SUB-Q ×2 (13:07→17:16)
[2020-12-19 13:38] LABS: Glucose Point of Care 246 (65-105)
--- NOTE | 2020-12-19 15:42 | WPDGICN ---
Assessment and Plan Assessment and plan (1) Streptococcal bacteremia: Code(s): R78.81 - Bacteremia; B95.5 - Unspecified streptococcus as the cause of diseases classified elsewhere Status: Acute Assessment and Plan: given personal history of rectal cancer and now with Strep gallolyticus bacteremia concerned that source could be colon cancer again. will wait another more day before doing a colonoscopy, he is slowly feeling better. His last colonoscopy about 10 years ago. (2) Rectal cancer: Code(s): C20 - Malignant neoplasm of rectum Status: Acute Assessment and Plan: 2005, he is agreeable for colonoscopy- probably on Saturday shortness of breath is improving (3) Sepsis: Code(s): A41.9 - Sepsis, unspecified organism Status: Acute Assessment and Plan: on iv antibiotics (4) Malignant neoplasm of upper lobe, right bronchus or lung: Code(s): C34.11 - Malignant neoplasm of upper lobe, right bronchus or lung Status: Acute Assessment and Plan: he received XRT as outpatient (5) Lactic acidosis: Code(s): E87.2 - Acidosis Status: Acute (6) Pneumonia: Qualifiers: Laterality: bilateral Lung location: lower lobe of lung Pneumonia type: due to unspecified organism Qualified Code(s): J18.9 - Pneumonia, unspecified organism Code(s): J18.9 - Pneumonia, unspecified organism Status: Acute Assessment and Plan: on treatment, better (7) Uncontrolled type 2 diabetes mellitus without complication: Status: Acute GI Consult Note Consult date/time: 12/19/20 15:42 Reason for consult: Streptococcus gallolyticus septicemia with previous history of rectal cancer HPI: Orville Brandt is a 69 year old male with rectal cancer 2006 s/p colostomy and chemoradiation therapy, his last colonoscopy was 2009. He has COPD on chronic home O2 of 3.5 L, primary bronchogenic carcinoma for which received XRT (did not take biopsy to confirm because poor surgical candidate to undergo bx) and chronic atrial fibrillation who came here with worsening shortness of breath and back pain with coughing, had lactic acidosis, leukocytosis with left shift and tachycardia. He was diagnosed with pneumonia and recent blood cultures grew Streptococcus gallolyticus on iv antibiotics. His ostomy output unchanged, no blood in stools. Review of Systems Constitutional: Constitutional: Reports lethargy Eyes: Eyes: Reports no additional eye complaints ENT: Reports system reviewed and no additional complaints, except as documented Cardiovascular: Cardiovascular: Denies chest pain Respiratory: Respiratory: Reports cough and Reports dyspnea Gastrointestinal: Gastrointestinal: Denies abdominal pain Genitourinary: Genitourinary: Denies urinary urgency Musculoskeletal: Musculoskeletal: Reports back pain Integumentary/Breasts: Skin/Breast: Denies pruritus Neurologic: Denies numbness [facility] Past Medical History Medical History (Updated 12/19/20 @ 16:00 by Seth Elizondo MD) Chronic atrial fibrillation Chronic kidney disease, stage 3 Chronic obstructive pulmonary disease Chronic respiratory failure with hypoxia and hypercapnia Closed compression fracture of thoracic vertebra Combined systolic and diastolic congestive heart failure Echocardiogram August 2018: Severe right ventricular enlargement, severe pulmonary hypertension, ejection fraction 45-50%, indeterminate diastolic function, mild global left ventricular systolic dysfunction, moderate left atrial enlargement, severe right atrial enlargement, moderate mitral valve regurgitation Diabetes mellitus Former smoker Gout Malignant neoplasm of upper lobe, right bronchus or lung diagnosed March 2020 treated with 5 rounds of radiation therapy. Had a relapse her cancer August 2020 and completed a 2nd round of radiation therapy. He is supposed to have a repeat CT scan late November 2020. He is not a c
--- NOTE | 2020-12-19 16:49 | PM.IMPN ---
Progress Note: A&P Assessment and Plan (1) Sepsis: Code(s): A41.9 - Sepsis, unspecified organism Status: Acute Assessment and Plan: Sepsis with septicemia on admission with lactic acidosis, leukocytosis with left shift and tachycardia. [place] related to the pneumonia and septicemia. BCx (1st bottle) growing Strept gallolyticus; BCx (2nd bottle) positive for gram-positive cocci in chains in anaerobic bottle only. Most likely the same organism. This is usually from the GI tract and associated with colon cancer. CT abd/pelvis today showing no acute findings. GI consult obtained for possible colonoscopy. Received Rocephin and Azithro on 12/16 and 12/17 but changed to Unasyn 12/18. Vanco started 12/17. White count better today. Continue Vancomycin and Unasyn for now until final BCx resulted. Repeat blood cultures. (2) Pneumonia: Qualifiers: Laterality: bilateral Lung location: lower lobe of lung Pneumonia type: due to unspecified organism Qualified Code(s): J18.9 - Pneumonia, unspecified organism Code(s): J18.9 - Pneumonia, unspecified organism Status: Acute Assessment and Plan: CTA showing no pulmonary emboli. Minimal airspace opacities bilateral lower lobes noted. Patient has chronic respiratory failure on home O2 at 3L at rest and 4L with activity and uses Trilogy at night. Patient is close to baseline. Albuterol available as needed. Continue IV abx. Resume BiPAP autotitrate or patient can use Trilogy from home. (3) Malignant neoplasm of upper lobe, right bronchus or lung: Code(s): C34.11 - Malignant neoplasm of upper lobe, right bronchus or lung Status: Acute Assessment and Plan: CTA Chest showing right upper lobe 4.2 cm mass that has doubled in size since July. Patient has a medically inoperable early stage lung cancer and is not a candidate for surgery or even biopsy due to his severe COPD. He completed course of SBRT from 01/19-02/02/20 and again 09/08-09/15/20. Plan was for PET scan today (12/19/20); mass appears larger on our images. Patient can arrange after discharge for PET scan. (4) Atrial fibrillation: Qualifiers: Atrial fibrillation type: unspecified Qualified Code(s): I48.91 - Unspecified atrial fibrillation Code(s): I48.91 - Unspecified atrial fibrillation Status: Acute Assessment and Plan: EKG shows atrial fibrillation with RVR. Patient was on tele showing persistent AFib. Continue Toprol and Cardizem. Not on watermelon inspector anticoagulation due to increased bleeding risk but does take ASA 3 times per week. (5) Type 2 diabetes mellitus with hyperglycemia: Code(s): E11.65 - Type 2 diabetes mellitus with hyperglycemia Status: Acute Assessment and Plan: A1c 6.4. The patient's blood glucose was reviewed on 12/19 Glucose mostly well controlled with occasional spikes into the 240's. Continue AccuCheks covering with sliding scale. Hypoglycemia protocol available as needed. Continue current medications. (6) Compression fracture: Status: Acute Assessment and Plan: Patient developed back pain about 3 weeks ago. No trauma. CTA chest showing new compression fractures of the T5 and T6 vertebral bodies. Increase in the pain but feel related to the increase in activity. If pain worsens, consider more imaging to exclude osteomyelitis given the bacteremia. (7) DVT prophylaxis: Code(s): Z29.9 - Encounter for prophylactic measures, unspecified Status: Acute Assessment and Plan: Lovenox Subjective Date/time seen: 12/19/20 16:49 Interval history: Date of service 12/19 69-year-old male with atrial fibrillation, lung cancer, chronic respiratory failure, COPD, CHF, diabetes, pulmonary hypertension and CKD here for increasing shortness of breath. Slept okay. No CP. SOB better but more with KAN when working with therapy. Also having more of the ramiro
[2020-12-19 17:26] LABS: Glucose Point of Care 203 (65-105)
[2020-12-19] MEDS: HYDROcodone/acetaminophen (*CRX) 5-325 MG TABLET 1 TAB PO (18:16)
[2020-12-19] MEDS: traZODone HCL 50 MG TABLET PO (20:40)
[2020-12-20] VITALS (11 sets, daily range): BP systolic 118–136; BP diastolic 77–84; PULSE 75–104; RESP 18–20; TEMP 36.2–36.4; O2SAT 90–99
[2020-12-20] MEDS: AMPICILLIN SULB 3 GM/NS 100 ML 3 GM/100 ML VIAL IVPB ×5 (00:04→23:43)
[2020-12-20 06:11] LABS: Hematocrit 33.2 % (42.0-52.0); Hemoglobin 10.6 g/dL (14.0-18.0); Immature Platelet Fraction Pct 5.8 % (0.9-11.2); Mean Corpuscular HGB Conc 31.9 g/dl (32-36); Mean Corpuscular Hemoglobin 32.9 pg (26-34); Mean Corpuscular Volume 103.1 fl (80-100); Mean Platelet Volume 11.3 fl (7.4-10.4); Platelet Count Result 107 k/mm3 (150-375); Red Blood Count 3.22 M/mm3 (4.6-6.20); Red Cell Distribution Width 14.1 % (11.5-14.5); White Blood Count 9.5 K/mm3 (4.5-10.0)
[2020-12-20] MEDS: HYDROcodone/acetaminophen (*CRX) 5-325 MG TABLET 1 TAB PO ×3 (06:18→22:48)
[2020-12-20 06:22] LABS: Albumin Level 2.7 g/dL (3.5-5.1); Anion Gap 2 mmol/L (8-16); Blood Urea Nitrogen 34 mg/dL (9-20); Calcium 8.3 mg/dL (8.4-10.2); Carbon Dioxide 35 mmol/L (22-30); Chloride 103 mmol/L (98-107); Estimated CRCL calculation 42 ml/min; Estimated Glomerular Filt Rate 46; Glucose 116 mg/dL (75-110); Phosphorus 3.3 mg/dL (2.5-4.5); Potassium 4.1 mmol/L (3.4-5.0); Sodium 140 mmol/L (137-145)
[2020-12-20 08:32] LABS: Glucose Point of Care 86 (65-105)
[2020-12-20] MEDS: ATORVASTATIN 40 MG TABLET PO (08:48)
[2020-12-20] MEDS: OMEGA 3 POLYUNSAT FATTY ACIDS 1 GM CAP PO ×4 (08:48→20:12)
[2020-12-20] MEDS: allopurinoL 300 MG TABLET PO (08:48)
[2020-12-20] MEDS: predniSONE 10 MG TABLET PO (08:48)
[2020-12-20] MEDS: PANTOPRAZOLE SOD SESQUIHYDRATE 20 MG TAB PO (08:49)
[2020-12-20] MEDS: guaiFENesin 12 HR 600 MG TABCR PO ×2 (08:49→20:12)
[2020-12-20] MEDS: METOPROLOL SUCCINATE EXT REL 100 MG TABCR PO ×2 (08:49→20:12)
[2020-12-20] MEDS: ASCORBIC ACID 500 MG TABLET BY MOUTH (08:49)
[2020-12-20] MEDS: ASPIRIN 325 MG TABLET PO (08:49)
[2020-12-20] MEDS: TAMSULOSIN HCL 0.4 MG CAPSULE PO (08:49)
[2020-12-20] MEDS: FUROSEMIDE 40 MG TABLET PO (08:51)
[2020-12-20] MEDS: ENOXAPARIN 40 MG/0.4 ML SYRINGE SUB-Q (08:53)
[2020-12-20] MEDS: IPRATROPIUM BR 0.02% INH SOLN 0.5 MG/2.5 ML VIAL INHALATION ×2 (09:03→14:55)
[2020-12-20] MEDS: FLUTICASONE/UMECLIDIN/VILANTER 100-62.5-25 MCG ELLIPTA 1 PUFF INHALATION (11:34)
[2020-12-20] MEDS: INSULIN ASPART (*BKC) 100 UNITS/ML SUB-Q ×2 (11:52→16:31)
[2020-12-20 12:03] LABS: Glucose Point of Care 212 (65-105)
--- NOTE | 2020-12-20 14:26 | PM.IMPN ---
Progress Note: A&P Assessment and Plan (1) Sepsis: Code(s): A41.9 - Sepsis, unspecified organism Status: Acute Assessment and Plan: Sepsis with septicemia on admission with lactic acidosis, leukocytosis with left shift and tachycardia. [place] related to the pneumonia and septicemia. BCx (2of2) positive for gram-positive cocci in chains in anaerobic bottle only. White count worse today. Continue Vancomycin and Unasyn given anaerobic positive cx. 1 set anaerobic bottle streptococcus gallolyticus, other anerobic set granulecetella adiacens repeat culture pending and colonoscope scheduled for 12/21 with the association of colon ca with these bacteria. (2) Pneumonia: Qualifiers: Laterality: bilateral Lung location: lower lobe of lung Pneumonia type: due to unspecified organism Qualified Code(s): J18.9 - Pneumonia, unspecified organism Code(s): J18.9 - Pneumonia, unspecified organism Status: Acute Assessment and Plan: CTA showing no pulmonary emboli. Minimal airspace opacities bilateral lower lobes noted. Patient has chronic respiratory failure on home O2 at 3L at rest and 4L with activity and uses Trilogy at night. Patient is close to baseline. Albuterol available as needed. Continue IV abx. (3) Malignant neoplasm of upper lobe, right bronchus or lung: Code(s): C34.11 - Malignant neoplasm of upper lobe, right bronchus or lung Status: Acute Assessment and Plan: CTA Chest showing right upper lobe 4.2 cm mass that has doubled in size since July. Patient has a medically inoperable early stage lung cancer reviewed he is not a candidate for surgery or even biopsy due to his severe COPD. He completed course of SBRT from 01/19-02/02/20 and again 09/08-09/15/20. Plans for PET scan at the end of the month. (4) Atrial fibrillation: Qualifiers: Atrial fibrillation type: unspecified Qualified Code(s): I48.91 - Unspecified atrial fibrillation Code(s): I48.91 - Unspecified atrial fibrillation Status: Acute Assessment and Plan: EKG shows atrial fibrillation with RVR. Patient on tele and showing persistent AFib with HR mostly below 105. Continue Toprol and Cardizem. Not on remote computer terminal operator anticoagulation due to increased bleeding risk but does take ASA 3 times per week. Okay to stop tele. (5) Type 2 diabetes mellitus with hyperglycemia: Code(s): E11.65 - Type 2 diabetes mellitus with hyperglycemia Status: Acute Assessment and Plan: A1c 6.4. The patient's blood glucose was reviewed on 12/20 Glucose better . Continue AccuCheks covering with sliding scale. Hypoglycemia protocol available as needed. Continue current medications. (6) Compression fracture: Status: Acute Assessment and Plan: Patietn developed back pain about 3 weeks ago. No trauma. CTA chest showing new compression fractures of the T5 and T6 vertebral bodies. Increase activity as tolerated. Patient relatively asymptomatic from this. (7) DVT prophylaxis: Code(s): Z29.9 - Encounter for prophylactic measures, unspecified Status: Acute Assessment and Plan: Lovenox Subjective Date/time seen: 12/20/20 14:26 Interval history: Date of service 12/20 69-year-old male with atrial fibrillation, lung cancer, chronic respiratory failure, COPD, CHF, diabetes, pulmonary hypertension and CKD here for increasing shortness of breath. Slept okay. No CP. SOB better but more with KAN when working with therapy. Also having more of the back pain today that he feels related to the increase in activity. Exam Narrative: Exam Narrative: AF 96.9 136/84 76 18 92% 4L Gen - NARD sitting up in bed Chest - distant BS, nml RR CV - irregularly-irregular. Abd -soft. Non tender. Positive bowel sounds. Colostomy in the left lower quadrant Ext - No pedal edema Psych - Nml mood and affect Skin - ecchymosis noted in
[2020-12-20 14:47] LABS: Vancomycin Trough 6.9 ug/mL (10.0-20.0)
--- NOTE | 2020-12-20 15:01 | WPDGIPROGNO ---
Progress Note: A&P Assessment and Plan (1) Streptococcal bacteremia: Code(s): R78.81 - Bacteremia; B95.5 - Unspecified streptococcus as the cause of diseases classified elsewhere Status: Acute Assessment and Plan: colonoscopy tomorrow, assess if recurrence of malignancy (bacteremia sometimes can be associated to CRC) (2) Rectal cancer: Code(s): C20 - Malignant neoplasm of rectum Status: Acute Assessment and Plan: remote, ostomy working ok (3) Malignant neoplasm of upper lobe, right bronchus or lung: Code(s): C34.11 - Malignant neoplasm of upper lobe, right bronchus or lung Status: Acute (4) Sepsis: Code(s): A41.9 - Sepsis, unspecified organism Status: Acute Assessment and Plan: on iv anbitiocs and feeling better (5) Type 2 diabetes mellitus with hyperglycemia: Code(s): E11.65 - Type 2 diabetes mellitus with hyperglycemia Status: Acute Subjective Date/time seen: 12/20/20 15:01 Interval history: he is slowly feeling better, good appetite, denies abdominal pain Review of Systems Review of Systems: All systems reviewed & are unremarkable except as noted in HPI and below Exam Const: General: no acute distress and ill appearing chronically HENMT: General nose exam: Normal nares present Eyes: Sclera: sclerae normal Neck: Neck: no JVD Resp: Auscultation: rhonchi Cardio: Rate: regular rate GI: GI Palp: Yes Soft to palpation and No Tenderness to palpation present (GI) Auscultation: normal bowel sounds Other: ostomy bag with stool Skin: General skin exam: normal color Neuro: Speech: normal speech Motor exam (neuro): Normal motor muscle tone present throughout Extrem: General: no edema Psych: Affect: normal affect Objective Data Vital Signs Vital Signs: Vital Signs - 24 hr 12/19/20 17:02 12/19/20 18:14 12/19/20 20:00 Temperature Pulse Rate 84 Respiratory Rate 18 Blood Pressure Pulse Oximetry 92 93 12/19/20 20:42 12/19/20 20:55 12/19/20 21:05 Temperature Pulse Rate 84 83 80 Respiratory Rate 20 20 Blood Pressure Pulse Oximetry 92 12/19/20 22:00 12/20/20 06:00 12/20/20 08:00 Temperature 97.8 F 97.2 F L Pulse Rate 92 77 Respiratory Rate 20 20 Blood Pressure 116/68 136/84 Pulse Oximetry 97 97 97 12/20/20 08:49 12/20/20 09:04 12/20/20 09:14 Temperature Pulse Rate 76 90 100 Respiratory Rate 20 20 Blood Pressure Pulse Oximetry 90 12/20/20 14:00 12/20/20 14:56 Temperature 97.5 F L Pulse Rate 104 H 75 Respiratory Rate 20 20 Blood Pressure 118/77 Pulse Oximetry 96 Intake/Output Intake/Output: Intake & Output 12/17/20 12/18/20 12/19/20 12/20/20 23:59 23:59 23:59 23:59 Intake Total 4130 1470 2540 1460 Output Total 563 461 6365 600 Balance 3830 820 1390 860 Meds/Results Medications: Active Medications Generic Name Dose Route Start Last Admin Trade Name Freq PRN Reason Stop Dose Admin Acetaminophen 650 mg 12/19/20 17:32 Acetaminophen 325 Mg Tablet PO Q6H PRN Mild Pain (1-5) Or Fever Hydrocodone Bitart/Acetaminophen 1 tab 12/19/20 17:32 12/20/20 06:18 Hydrocodone/Acetaminophen (*Crx) 5-325 Mg Tablet PO 1 tab Q6H PRN Administration Pain Rated 6-10 Allopurinol 300 mg 12/17/20 08:00 12/20/20 08:48 Allopurinol 300 Mg Tablet PO 300 mg DAILY@0800 COOKIE Administration Ascorbic Acid 500 mg 12/17/20 09:00 12/20/20 08:49 Ascorbic Acid 500 Mg Tablet BY MOUTH 500 mg DAILY COOKIE Administration Aspirin 325 mg 12/18/20 08:00 12/20/20 08:49 Aspirin 325 Mg Tablet PO 325 mg SuTuTh@0800 COOKIE Administration Atorvastatin Calcium 40 mg 12/17/20 09:00 12/20/20 08:48 Atorvastatin 40 Mg Tablet PO 40 mg DAILY COOKIE Administration Bisacodyl 20 mg 12/20/20 17:00 Bisacodyl 5 Mg Tablet Ec PO 12/20/20 17:01 ONCE ONE Dextrose 12.5 gm 12/17/20 04:27 Dextrose 50% 25 Gm/50 Ml Syringe
[2020-12-20] MEDS: PEG (High)/E-LYTE SOLN 4,000 ML BTL 4000 ML PO (16:20)
[2020-12-20] MEDS: BISACODYL 5 MG TABLET EC 20 MG PO (16:23)
[2020-12-20 16:32] LABS: Glucose Point of Care 310 (65-105)
[2020-12-20] MEDS: traZODone HCL 50 MG TABLET PO (20:12)
[2020-12-20 21:39] LABS: Glucose Point of Care 185 (65-105)
[2020-12-21] VITALS (21 sets, daily range): BP systolic 96–149; BP diastolic 66–88; PULSE 73–114; RESP 18–29; TEMP 36.5–36.7; O2SAT 93–100
[2020-12-21] MEDS: IPRATROPIUM BR 0.02% INH SOLN 0.5 MG/2.5 ML VIAL INHALATION ×4 (02:27→20:16)
[2020-12-21] MEDS: HYDROcodone/acetaminophen (*CRX) 5-325 MG TABLET 1 TAB PO ×3 (05:01→19:37)
[2020-12-21] MEDS: AMPICILLIN SULB 3 GM/NS 100 ML 3 GM/100 ML VIAL IVPB ×4 (05:01→23:23)
[2020-12-21] MEDS: predniSONE 10 MG TABLET PO (08:24)
[2020-12-21] MEDS: METOPROLOL SUCCINATE EXT REL 100 MG TABCR PO ×2 (08:25→20:01)
[2020-12-21] MEDS: ATORVASTATIN 40 MG TABLET PO (08:25)
[2020-12-21] MEDS: FUROSEMIDE 40 MG TABLET PO (08:25)
[2020-12-21] MEDS: TAMSULOSIN HCL 0.4 MG CAPSULE PO (08:25)
[2020-12-21] MEDS: FLUTICASONE/UMECLIDIN/VILANTER 100-62.5-25 MCG ELLIPTA 1 PUFF INHALATION (08:48)
[2020-12-21 09:01] LABS: Glucose Point of Care 95 (65-105)
--- NOTE | 2020-12-21 10:24 | WPDANESEPPF ---
Anes - Initial Pre Proc Eval Procedure: Operation Date: 12/21/20 11:15 Proposed Procedures p Colonoscopy - Seth Elizondo MD Date/Time: 12/21/20 10:24 Surgeon: Maria Esther Trotter DO Pre Op Diagnosis: Pneumonia/afib with rvr/coronavirus PUI Patient Data Age: 69 Gender: M Height: 1.78 m Weight: 76.6 kg Last Vital Signs Temp 36.7 C 12/21/20 05:47 Pulse 88 12/21/20 09:00 Resp 20 12/21/20 09:00 BP 149/66 H 12/21/20 05:47 Pulse Ox 93 12/21/20 08:49 Allergies Allergy/AdvReac Type Severity Reaction Status Date / Time No Known Allergies Allergy Verified 12/21/20 10:26 Home Medications Medication Instructions Recorded Confirmed Type allopurinol 300 mg tablet 300 mg PO DAILY 10/07/19 12/17/20 History blood-glucose meter #1 each 10/07/19 12/17/20 History ergocalciferol (vitamin D2) 1,250 50,000 unit PO USEASDIRECTD 10/07/19 12/17/20 History mcg (50,000 unit) capsule tamsulosin 0.4 mg capsule 0.4 mg PO DAILY 10/07/19 12/17/20 History liraglutide 0.6 mg/0.1 mL (18 mg/3 1.8 mg SUB-Q DAILY #18 ml 12/28/19 12/17/20 Rx mL) subcutaneous pen injector diltiazem HCl 120 mg 120 mg PO DAILY cap 05/25/20 12/17/20 History capsule,extended release 12 hr omeprazole magnesium 20 mg 20 mg PO DAILY #90 tablet 09/16/20 12/17/20 Rx tablet,delayed release metoprolol succinate 100 mg 100 mg PO BID #180 tablet 09/23/20 12/17/20 Rx tablet,extended release 24 hr pen needle, diabetic 29 gauge x See Rx Instructions .ROUTE 09/27/20 12/17/20 Rx 1/2 .COMPLEX #100 syringe blood sugar diagnostic #100 each 10/04/20 12/17/20 Rx atorvastatin 40 mg tablet 40 mg PO DAILY #90 tablet 10/07/20 12/17/20 Rx furosemide 40 mg tablet 40 mg PO QAM #90 tablet 11/11/20 12/17/20 Rx aspirin 325 mg PO QTUTHSU 12/16/20 12/17/20 History kvrgybnvcjh-zfmlkldpw-mvphvkyt 1 inh INHALATION DAILY 12/16/20 12/17/20 History [Trelegy Ellipta] omega 3-pze-xcq-fish oil [Fish Oil] 1 cap PO QID 12/16/20 12/17/20 History prednisone 10 mg PO DAILY 12/17/20 12/17/20 History sitagliptin [Januvia] 50 mg PO DAILY 12/17/20 12/17/20 History trazodone 50 mg PO HS 12/17/20 12/17/20 History ascorbic acid (vitamin C) 500 mg 500 mg PO DAILY #90 tablet 12/19/20 12/21/20 Rx tablet Laboratory Tests 12/20/20 12/20/20 12/20/20 11:47 13:40 16:25 POC Capillary Glucose 212 mg/dl H mg/dl 310 mg/dl H mg/dl (65-105) (65-105) Vancomycin Trough 6.9 ug/mL L ug/mL (10.0-20.0) 12/20/20 12/21/20 21:37 08:33 POC Capillary Glucose 185 mg/dl H mg/dl 95 mg/dl mg/dl (65-105) (65-105) Vancomycin Trough Patient hx anesthesia problems: none Family hx anesthesia problems: none [facility] Past Medical History Medical History (Updated 12/19/20 @ 16:00 by Seth Elizondo MD) Chronic atrial fibrillation Chronic kidney disease, stage 3 Chronic obstructive pulmonary disease Chronic respiratory failure with hypoxia and hypercapnia Closed compression fracture of thoracic vertebra Combined systolic and diastolic congestive heart failure Echocardiogram August 2018: Severe right ventricular enlargement, severe pulmonary hypertension, ejection fraction 45-50%, indeterminate diastolic function, mild global left ventricular systolic dysfunction, moderate left atrial enlargement, severe right atrial enlargement, moderate mitral valve regurgitation Diabetes mellitus Former smoker Gout Malignant neoplasm of upper lobe, right bronchus or lung diagnosed March 2020 treated with 5 rounds of radiation therapy. Had a relapse her cancer August 2020 and completed a 2nd round of radiation therapy. He is supposed to have a repeat CT scan late November 2020. He is not a candidate for biopsy or for lobectomy due to his lung function. Mixed hyperlipidemia RICHY (obstructive sleep apnea) On trilogy Pulmonary hypertension Severe Rectal cancer chemoradiation and resection in 2006. Streptococcal bacteremia Thrombocytop
[2020-12-21] MEDS: LACTATED RINGERS 1,000 ML 150 ML IV CONT (10:43)
[2020-12-21 11:07] LABS: Glucose Point of Care 149 (65-105)
--- NOTE | 2020-12-21 11:30 | PCPTNOTE ---
PT attempted to see patient, however patient out of room in GI Lab. PT will continue to follow per plan of care.
[2020-12-21] MEDS: OMEGA 3 POLYUNSAT FATTY ACIDS 1 GM CAP PO ×3 (13:46→20:01)
[2020-12-21] MEDS: ASCORBIC ACID 500 MG TABLET BY MOUTH (13:46)
[2020-12-21] MEDS: PANTOPRAZOLE SOD SESQUIHYDRATE 20 MG TAB PO (13:46)
[2020-12-21] MEDS: guaiFENesin 12 HR 600 MG TABCR PO ×2 (13:46→20:01)
[2020-12-21] MEDS: allopurinoL 300 MG TABLET PO (13:47)
[2020-12-21 14:09] LABS: Glucose Point of Care 170 (65-105)
--- NOTE | 2020-12-21 17:01 | PM.IMPN ---
Progress Note: A&P Assessment and Plan (1) Sepsis: Code(s): A41.9 - Sepsis, unspecified organism Status: Acute Assessment and Plan: Sepsis with septicemia on admission with lactic acidosis, leukocytosis with left shift and tachycardia. [place]accoon related to the pneumonia and septicemia. BCx (2of2) positive for gram-positive cocci in chains in anaerobic bottle only. White count worse today. Continue Vancomycin and Unasyn given anaerobic positive cx. 1 set anaerobic bottle streptococcus gallolyticus, other anerobic set granulecetella adiacens repeat culture NG so far and colonoscope today polyps only with no malignancy will check echo also D#4 Unasyn and vanc (2) Pneumonia: Qualifiers: Laterality: bilateral Lung location: lower lobe of lung Pneumonia type: due to unspecified organism Qualified Code(s): J18.9 - Pneumonia, unspecified organism Code(s): J18.9 - Pneumonia, unspecified organism Status: Acute Assessment and Plan: CTA showing no pulmonary emboli. Minimal airspace opacities bilateral lower lobes noted. Patient has chronic respiratory failure on home O2 at 3L at rest and 4L with activity and uses Trilogy at night. Patient is close to baseline. Albuterol available as needed. Continue IV abx. D# 4 of suseptible antibiotics (3) Malignant neoplasm of upper lobe, right bronchus or lung: Code(s): C34.11 - Malignant neoplasm of upper lobe, right bronchus or lung Status: Acute Assessment and Plan: CTA Chest showing right upper lobe 4.2 cm mass that has doubled in size since July. Patient has a medically inoperable early stage lung cancer reviewed he is not a candidate for surgery or even biopsy due to his severe COPD. He completed course of SBRT from 01/19-02/02/20 and again 09/08-09/15/20. Plans for PET scan at the end of the month. (4) Atrial fibrillation: Qualifiers: Atrial fibrillation type: unspecified Qualified Code(s): I48.91 - Unspecified atrial fibrillation Code(s): I48.91 - Unspecified atrial fibrillation Status: Acute Assessment and Plan: EKG shows atrial fibrillation with RVR. Patient on tele and showing persistent AFib with HR mostly below 105. Continue Toprol and Cardizem. 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 Okay to stop tele. (5) Type 2 diabetes mellitus with hyperglycemia: Code(s): E11.65 - Type 2 diabetes mellitus with hyperglycemia Status: Acute Assessment and Plan: A1c 6.4. The patient's blood glucose was reviewed on 12/21 Glucose better . Continue AccuCheks covering with sliding scale. Hypoglycemia protocol available as needed. Continue current medications. (6) Compression fracture: Status: Acute Assessment and Plan: Patietn developed back pain about 3 weeks ago. No trauma. CTA chest showing new compression fractures of the T5 and T6 vertebral bodies. Increase activity as tolerated. Patient relatively asymptomatic from this. (7) DVT prophylaxis: Code(s): Z29.9 - Encounter for prophylactic measures, unspecified Status: Acute Assessment and Plan: Lovenox Subjective Date/time seen: 12/21/20 17:01 Interval history: Date of service 12/21 69-year-old male with atrial fibrillation, lung cancer, chronic respiratory failure, COPD, CHF, diabetes, pulmonary hypertension and CKD here for increasing shortness of breath. Slept okay. No CP. SOB better but more with KAN when working with therapy. Also having more of the back pain today that he feels related to the increase in activity. made it through colonoscope without problems Exam Narrative: Exam Narrative: AF 96.9 124/80 86 18 96% 4L Gen - NARD sitting up in bed Chest - distant BS, nml RR CV - irregularly-irregular. Abd -soft. Non tender. Positive bowel sounds. Colostomy in the left lower quadrant
[2020-12-21 18:23] LABS: Glucose Point of Care 390 (65-105)
[2020-12-21] MEDS: INSULIN ASPART (*BKC) 100 UNITS/ML SUB-Q (18:23)
[2020-12-21] MEDS: traZODone HCL 50 MG TABLET PO (20:01)
[2020-12-21 21:35] LABS: Glucose Point of Care 161 (65-105)
[2020-12-22] VITALS (10 sets, daily range): BP systolic 118–131; BP diastolic 75–95; PULSE 73–98; RESP 18–20; TEMP 36.2–36.6; O2SAT 92–99
--- NOTE | 2020-12-22 | ECHO_ITS ---
Patient Info Name: Orville Brandt Age: 69 years : 1950 Gender: Male Ht: 70 in Wt: 168 lbs BSA: 1.95 m2 HR: 90 bpm BP: 131 / 95 mmHg Technical Quality: Good Exam Date: 12/22/2020 8:36 AM Exam Location: [facility] Patient Status: Inpatient Admit Date: 12/16/2020 Staff Ordering Physician: Yosef Santana MD [employer] Targeting Technician: Dustin Miller RDCS, RT Attending Provider: Maria Esther Trotter DO Referring Physician: Esther HOWARD; Exam Type: CA echo doppler color flow Study Info Indications R65.20 - Severe sepsis without septic shock Strain analysis performed. Complete two-dimensional, color flow and Doppler transthoracic echocardiogram is performed. Summary 1. Complete two-dimensional, color flow and Doppler transthoracic echocardiogram is performed. 2. Left ventricular systolic function is normal, estimated at 55-60%. 3. There is mildly increased left ventricular wall thickness. 4. The left ventricular diastolic function is abnormal. 5. Right ventricular chamber dimension is mildly enlarged. 6. Right ventricular systolic function is reduced. 7. Left atrial chamber dimension is mildly enlarged. 8. Right atrial chamber dimension is moderately enlarged. 9. There is severe mitral valve regurgitation. 10. There is mild tricuspid valve regurgitation. 11. Severe pulmonary hypertension, estimated pulmonary arterial systolic pressure is 64 mmHg. Left Ventricle Left ventricular chamber dimension is normal. Left ventricular systolic function is normal, estimated at 55-60%. There is mildly increased left ventricular wall thickness. Left ventricular septal wall motion is normal. The left ventricular diastolic function is abnormal. Global longitudinal strain is abnormal at -14 %. Right Ventricle Right ventricular chamber dimension is mildly enlarged. Right ventricular systolic function is reduced. Left Atria Left atrial chamber dimension is mildly enlarged. Right Atria Right atrial chamber dimension is moderately enlarged. Aortic Valve The aortic valve is trileaflet. There is no aortic valve sclerosis. There is no aortic valve stenosis. There is no aortic valve regurgitation. There is mild aortic valve calcification. Pulmonic Valve The pulmonic valve is normal. There is no pulmonic valve stenosis. There is no pulmonic regurgitation. Mitral Valve The mitral valve has thickened leaflets. There is no mitral valve stenosis. There is severe mitral valve regurgitation. Tricuspid Valve The tricuspid valve leaflets are normal. There is no significant tricuspid valve stenosis. There is mild tricuspid valve regurgitation. Severe pulmonary hypertension, estimated pulmonary arterial systolic pressure is 64 mmHg. Pericardium/Pleural The pericardium appears normal. There is no pericardial effusion. Inferior Vena Cava Normal inferior vena cava with >50% collapse upon inspiration consistent with normal right atrial pressure, 5 mmHg. Aorta The aortic root size at the sinus of Valsalva is normal. The prox ascending aorta size is normal. Left Ventricular Outflow Tract Name Value Normal LVOT 2D LVOT Diameter 2.2 cm LVOT Doppler ---------
[2020-12-22 04:49] LABS: Basophils Absolute Auto 0.1 K/mm3 (0.0-0.1); Basophils Percent Auto 0.9 % (0.2-1.2); Eosinophils Absolute Auto 0.2 K/mm3 (0-0.3); Eosinophils Percent Auto 1.2 % (0-4.4); Hematocrit 34.8 % (42.0-52.0); Hemoglobin 11.2 g/dL (14.0-18.0); Immature Granulocyte Absolute 0.89 K/mm3 (0.00-0.031); Immature Granulocyte Percent A 6.4 % (0-0.5); Immature Platelet Fraction Pct 7.8 % (0.9-11.2); Lymphocytes Absolute Auto 0.84 K/mm3 (0.9-3.2); Lymphocytes Percent Auto 6.1 % (18.3-44.2); Mean Corpuscular HGB Conc 32.2 g/dl (32-36); Mean Corpuscular Hemoglobin 32.7 pg (26-34); Mean Corpuscular Volume 101.8 fl (80-100); Mean Platelet Volume 11.5 fl (7.4-10.4); Monocytes Absolute Auto 1.1 K/mm3 (0.1-0.6); Neutrophils Absolute Auto 10.7 K/mm3 (1.3-6.7); Neutrophils Percent Auto 77.4 % (45.5-73.1); Platelet Count Result 139 k/mm3 (150-375); Red Blood Count 3.42 M/mm3 (4.6-6.20); Red Cell Distribution Width 14.1 % (11.5-14.5); White Blood Count 13.8 K/mm3 (4.5-10.0)
[2020-12-22] MEDS: HYDROcodone/acetaminophen (*CRX) 5-325 MG TABLET 1 TAB PO ×3 (05:04→19:58)
[2020-12-22 05:05] LABS: Anion Gap 3 mmol/L (8-16); Blood Urea Nitrogen 24 mg/dL (9-20); Calcium 8.6 mg/dL (8.4-10.2); Carbon Dioxide 38 mmol/L (22-30); Chloride 94 mmol/L (98-107); Estimated CRCL calculation 45 ml/min; Estimated Glomerular Filt Rate 50; Glucose 125 mg/dL (75-110); Potassium 3.8 mmol/L (3.4-5.0); Sodium 135 mmol/L (137-145)
[2020-12-22] MEDS: AMPICILLIN SULB 3 GM/NS 100 ML 3 GM/100 ML VIAL IVPB ×4 (05:29→23:48)
--- NOTE | 2020-12-22 07:59 | WPDANESPN ---
Anes - Prog Note Post-Op Date/Time: 12/22/20 07:59 Cardiovascular status: normal Respiratory status: other (on supplemental O2 per NC) Airway patency: baseline Mental status: baseline Post-Op hydration status: normal Vital Signs: Last Vital Signs Temp 36.6 C 12/22/20 05:53 Pulse 90 12/22/20 05:53 Resp 20 12/22/20 05:53 BP 131/95 H 12/22/20 05:53 Pulse Ox 95 12/22/20 05:53 Pain Score (VAS): 0 I/O: Intake & Output 12/21/20 12/21/20 12/22/20 15:59 23:59 07:59 Intake Total 920 990 300 Output Total 402 179 4575 Balance 170 140 -850 Laboratory Tests 12/22/20 04:20 12/22/20 04:20 12/21/20 12/21/20 12/21/20 08:33 11:04 13:43 WBC RBC Hgb Hct MCV MCH MCHC RDW Plt Count MPV Immature Gran % (Auto) Neut % (Auto) Lymph % (Auto) [place] % (Auto) Eos % (Auto) Baso % (Auto) Lymph # (Auto) [place] # (Auto) Eos # (Auto) Baso # (Auto) Abs Immat Gran (auto) Absolute Neuts (auto) Absolute Nucleated RBC Nucleated RBC % % Immature Plt Fraction Sodium Potassium Chloride Carbon Dioxide Anion Gap BUN Creatinine Estim Creat Clear Calc Estimated GFR Glucose POC Capillary Glucose 95 149 H 170 H Calcium 12/21/20 12/21/20 12/22/20 18:21 21:29 04:20 WBC 13.8 H RBC 3.42 L Hgb 11.2 L Hct 34.8 L MCV 101.8 H MCH 32.7 MCHC 32.2 RDW 14.1 Plt Count 139 L MPV 11.5 H Immature Gran % (Auto) 6.4 H Neut % (Auto) 77.4 H Lymph % (Auto) 6.1 L [place] % (Auto) 8.0 Eos % (Auto) 1.2 Baso % (Auto) 0.9 Lymph # (Auto) 0.84 L [place] # (Auto) 1.1 H Eos # (Auto) 0.2 Baso # (Auto) 0.1 Abs Immat Gran (auto) 0.89 H Absolute Neuts (auto) 10.7 H Absolute Nucleated RBC 0.0 Nucleated RBC % 0.0 % Immature Plt Fraction 7.8 Sodium Potassium Chloride Carbon Dioxide Anion Gap BUN Creatinine Estim Creat Clear Calc Estimated GFR Glucose POC Capillary Glucose 390 H 161 H Calcium 12/22/20 12/22/20 04:20 04:20 WBC RBC Hgb Cancelled Hct Cancelled MCV MCH MCHC RDW Plt Count MPV Immature Gran % (Auto) Neut % (Auto) Lymph % (Auto) [place] % (Auto) Eos % (Auto) Baso % (Auto) Lymph # (Auto) [place] # (Auto) Eos # (Auto) Baso # (Auto) Abs Immat Gran (auto) Absolute Neuts (auto) Absolute Nucleated RBC Nucleated RBC % % Immature Plt Fraction Sodium 135 L Potassium 3.8 Chloride 94 L Carbon Dioxide 38 H Anion Gap 3 L BUN 24 H D Creatinine 1.40 H Estim Creat Clear Calc 45 Estimated GFR 50 L Glucose 125 H POC Capillary Glucose Calcium 8.6 Post-procedural complaints: none Patient Feedback: Patient satisfied with anesthetic care.
[2020-12-22] MEDS: FLUTICASONE/UMECLIDIN/VILANTER 100-62.5-25 MCG ELLIPTA 1 PUFF INHALATION (08:35)
[2020-12-22] MEDS: IPRATROPIUM BR 0.02% INH SOLN 0.5 MG/2.5 ML VIAL INHALATION ×2 (08:35→21:18)
[2020-12-22] MEDS: ATORVASTATIN 40 MG TABLET PO (09:01)
[2020-12-22] MEDS: PANTOPRAZOLE SOD SESQUIHYDRATE 20 MG TAB PO (09:01)
[2020-12-22] MEDS: TAMSULOSIN HCL 0.4 MG CAPSULE PO (09:01)
[2020-12-22] MEDS: guaiFENesin 12 HR 600 MG TABCR PO ×2 (09:01→20:09)
[2020-12-22] MEDS: OMEGA 3 POLYUNSAT FATTY ACIDS 1 GM CAP PO ×4 (09:01→20:09)
[2020-12-22] MEDS: METOPROLOL SUCCINATE EXT REL 100 MG TABCR PO ×2 (09:01→20:09)
[2020-12-22] MEDS: FUROSEMIDE 40 MG TABLET PO (09:01)
[2020-12-22] MEDS: ASCORBIC ACID 500 MG TABLET BY MOUTH (09:02)
[2020-12-22] MEDS: allopurinoL 300 MG TABLET PO (09:02)
[2020-12-22] MEDS: ENOXAPARIN 40 MG/0.4 ML SYRINGE SUB-Q (09:02)
[2020-12-22] MEDS: predniSONE 10 MG TABLET PO (09:02)
[2020-12-22 09:13] LABS: Glucose Point of Care 106 (65-105)
[2020-12-22] MEDS: ACETAMINOPHEN 325 MG TABLET 650 MG PO (10:08)
[2020-12-22 12:17] LABS: Glucose Point of Care 214 (65-105)
[2020-12-22] MEDS: INSULIN ASPART (*BKC) 100 UNITS/ML SUB-Q ×2 (13:02→17:45)
[2020-12-22] MEDS: LIDOCAINE 5% PATCH 2 PATCH TRANSDERM (13:28)
--- NOTE | 2020-12-22 15:25 | PCPTNOTE ---
Attempted to see patient for PT, however patient declined, reported it has been a rough day and doesn't feel up for it.
--- NOTE | 2020-12-22 16:09 | PM.IMPN ---
Progress Note: A&P Assessment and Plan (1) Sepsis: Code(s): A41.9 - Sepsis, unspecified organism Status: Acute Assessment and Plan: Sepsis with septicemia on admission with lactic acidosis, leukocytosis with left shift and tachycardia. [place] related to the pneumonia and septicemia. BCx (2of2) positive for gram-positive cocci in chains in anaerobic bottle only. White count back up slightly today. Continue Vancomycin and Unasyn given anaerobic positive cx. 1 set anaerobic bottle streptococcus gallolyticus, other anerobic set granulecetella adiacens repeat culture NG so far and colonoscope 12/21 polyps only with no malignancy echo no vegetations. with pul htn 64 and decreased R ventr function D#5 Unasyn and vanc (2) Pneumonia: Qualifiers: Laterality: bilateral Lung location: lower lobe of lung Pneumonia type: due to unspecified organism Qualified Code(s): J18.9 - Pneumonia, unspecified organism Code(s): J18.9 - Pneumonia, unspecified organism Status: Acute Assessment and Plan: CTA showing no pulmonary emboli. Minimal airspace opacities bilateral lower lobes noted. Patient has chronic respiratory failure on home O2 at 3L at rest and 4L with activity and uses Trilogy at night. Patient is close to baseline. Albuterol available as needed. Continue IV abx. D# 5 of suseptible antibiotics (3) Malignant neoplasm of upper lobe, right bronchus or lung: Code(s): C34.11 - Malignant neoplasm of upper lobe, right bronchus or lung Status: Acute Assessment and Plan: CTA Chest showing right upper lobe 4.2 cm mass that has doubled in size since July. Patient has a medically inoperable early stage lung cancer reviewed he is not a candidate for surgery or even biopsy due to his severe COPD. He completed course of SBRT from 01/19-02/02/20 and again 09/08-09/15/20. Plans for PET scan at the end of the month. Will have seen by oncology while here (4) Atrial fibrillation: Qualifiers: Atrial fibrillation type: unspecified Qualified Code(s): I48.91 - Unspecified atrial fibrillation Code(s): I48.91 - Unspecified atrial fibrillation Status: Acute Assessment and Plan: EKG showed atrial fibrillation with RVR. Patient on tele and showing persistent AFib with HR mostly below 100 now. Continue Toprol and Cardizem. Not on [facility] anticoagulation due to increased bleeding risk but does take ASA 3 times per week. Okay to stop tele. (5) Type 2 diabetes mellitus with hyperglycemia: Code(s): E11.65 - Type 2 diabetes mellitus with hyperglycemia Status: Acute Assessment and Plan: A1c 6.4. The patient's blood glucose was reviewed on 12/22 Glucose better FBS 125 . Continue AccuCheks covering with sliding scale. Hypoglycemia protocol available as needed. Continue current medications. (6) Compression fracture: Status: Acute Assessment and Plan: Kian developed back pain about 3 weeks ago. No trauma. CTA chest showing new compression fractures of the T5 and T6 vertebral bodies. Increase activity as tolerated. (7) DVT prophylaxis: Code(s): Z29.9 - Encounter for prophylactic measures, unspecified Status: Acute Assessment and Plan: Lovenox Subjective Date/time seen: 12/22/20 16:09 Interval history: Date of service 12/22 69-year-old male with atrial fibrillation, lung cancer, chronic respiratory failure, COPD, CHF, diabetes, pulmonary hypertension and CKD here for increasing shortness of breath. Slept okay. No CP. SOB better but more with KAN when working with therapy. Also having more of the back pain today that he feels related to the increase in activity. Exam Narrative: Exam Narrative: AF 96.9 130/94 90 18 95% 4L Gen - NARD sitting up in bed Chest - distant BS, nml RR CV - irregularly-irregular. Abd -soft. Non tender. Positive bowel sounds. Colostomy in
[2020-12-22 17:20] LABS: Glucose Point of Care 284 (65-105)
--- NOTE | 2020-12-22 17:38 | PCRCNOTE ---
Window of time for administration has passed. See next scheduled administration.
[2020-12-22 20:07] LABS: Glucose Point of Care 225 (65-105)
[2020-12-22] MEDS: traZODone HCL 50 MG TABLET PO (20:09)
[2020-12-23] VITALS (15 sets, daily range): BP systolic 96–124; BP diastolic 66–71; PULSE 65–98; RESP 18–20; TEMP 36.1–37.1; O2SAT 93–100
[2020-12-23] MEDS: HYDROcodone/acetaminophen (*CRX) 5-325 MG TABLET 1 TAB PO ×3 (02:07→21:54)
[2020-12-23] MEDS: IPRATROPIUM BR 0.02% INH SOLN 0.5 MG/2.5 ML VIAL INHALATION ×4 (02:34→20:59)
[2020-12-23] MEDS: AMPICILLIN SULB 3 GM/NS 100 ML 3 GM/100 ML VIAL IVPB ×2 (05:24→13:03)
[2020-12-23] MEDS: FLUTICASONE/UMECLIDIN/VILANTER 100-62.5-25 MCG ELLIPTA 1 PUFF INHALATION (08:01)
[2020-12-23] MEDS: ASCORBIC ACID 500 MG TABLET BY MOUTH (09:10)
[2020-12-23] MEDS: predniSONE 10 MG TABLET PO (09:10)
[2020-12-23] MEDS: allopurinoL 300 MG TABLET PO (09:11)
[2020-12-23] MEDS: ATORVASTATIN 40 MG TABLET PO (09:12)
[2020-12-23] MEDS: ENOXAPARIN 40 MG/0.4 ML SYRINGE SUB-Q (09:12)
[2020-12-23] MEDS: guaiFENesin 12 HR 600 MG TABCR PO ×2 (09:13→21:34)
[2020-12-23] MEDS: LIDOCAINE 5% PATCH 2 PATCH TRANSDERM (09:13)
[2020-12-23] MEDS: FUROSEMIDE 40 MG TABLET PO (09:13)
[2020-12-23] MEDS: TAMSULOSIN HCL 0.4 MG CAPSULE PO (09:14)
[2020-12-23] MEDS: OMEGA 3 POLYUNSAT FATTY ACIDS 1 GM CAP PO ×4 (09:14→21:34)
[2020-12-23] MEDS: PANTOPRAZOLE SOD SESQUIHYDRATE 20 MG TAB PO (09:14)
[2020-12-23] MEDS: METOPROLOL SUCCINATE EXT REL 100 MG TABCR PO ×2 (09:31→21:33)
[2020-12-23 09:56] LABS: Glucose Point of Care 140 (65-105)
--- NOTE | 2020-12-23 10:35 | PCNFU ---
Nutrition Follow-Up Complete: Inadequate Oral intake as related to cancer as evidenced by 20% weight loss reported. Goal: Meet estimated nutritional needs Patient is working towards meeting goal. No new goal at this time. Pt current nutrition is Diabetic consistent carbohydrate diet with Glucerna shakes BID providing an additional 220 calories and 10 grams of protein. Last recorded weight is 76.6 kg. Stable. Bowel Motility: + BM 12/23 Labs Reviewed: Hgb 11.2, Hct 348, Na 135, GFR 50, BUN 24, Cr 1.4, Glu 125 Meds Noted: lipitor, zyloprim, lovenox, lovaza, lasix tablet, cardizem Cd, novolog, lidoderm, protonix, prednisome, flomax, desyrel Additional Notes: Followed up with patient today. Patient reported having a good appetite but it does not take much for him to get full. He orders three meals a day and sometimes an additional snack as well. Patient wants to increase Glucerna shakes TID. Will monitor every 7 days.
--- NOTE | 2020-12-23 10:50 | PCNSR ---
On 12/23/20, the student, Tasha Sanders, provided care and completed [facility] patient. I have reviewed the student's documentation and agree with the findings.
--- NOTE | 2020-12-23 11:15 | PCPTNOTE ---
Pt declined treatment at this time. He stated I just don't have the energy to. Maybe tomorrow I will feel better. Will continue treatment per POC.
[2020-12-23] MEDS: INSULIN ASPART (*BKC) 100 UNITS/ML SUB-Q ×2 (13:06→16:59)
[2020-12-23 15:05] LABS: Vancomycin Trough 18.7 ug/mL (10.0-20.0)
--- NOTE | 2020-12-23 16:15 | PM.IMPN ---
Progress Note: A&P Assessment and Plan (1) Sepsis: Code(s): A41.9 - Sepsis, unspecified organism Status: Acute Assessment and Plan: Sepsis with septicemia on admission with lactic acidosis, leukocytosis with left shift and tachycardia. [place] related to the pneumonia and septicemia. BCx (2of2) positive for gram-positive cocci in chains in anaerobic bottle only. White count back up slightly 12/22, repeat am Continue Vancomycin and Unasyn given anaerobic positive cx. 1 set anaerobic bottle streptococcus gallolyticus, other anerobic set granulecetella adiacens repeat culture NG so far and colonoscope 12/21 polyps only with no malignancy echo no vegetations. with pul htn 64 and decreased R ventr function D#6 Unasyn and vanc (2) Pneumonia: Qualifiers: Laterality: bilateral Lung location: lower lobe of lung Pneumonia type: due to unspecified organism Qualified Code(s): J18.9 - Pneumonia, unspecified organism Code(s): J18.9 - Pneumonia, unspecified organism Status: Acute Assessment and Plan: CTA showing no pulmonary emboli. Minimal airspace opacities bilateral lower lobes noted. Patient has chronic respiratory failure on home O2 at 3L at rest and 4L with activity and uses Trilogy at night. Patient is close to baseline. Albuterol available as needed. Continue IV abx. D# 6 of suseptible antibiotics (3) Malignant neoplasm of upper lobe, right bronchus or lung: Code(s): C34.11 - Malignant neoplasm of upper lobe, right bronchus or lung Status: Acute Assessment and Plan: CTA Chest showing right upper lobe 4.2 cm mass that has doubled in size since July. Patient has a medically inoperable early stage lung cancer reviewed he is not a candidate for surgery or even biopsy due to his severe COPD. He completed course of SBRT from 01/19-02/02/20 and again 09/08-09/15/20. Plans for PET scan at the end of the month. oncology consulted while here (4) Atrial fibrillation: Qualifiers: Atrial fibrillation type: unspecified Qualified Code(s): I48.91 - Unspecified atrial fibrillation Code(s): I48.91 - Unspecified atrial fibrillation Status: Acute Assessment and Plan: EKG showed atrial fibrillation with RVR. Patient on tele and showing persistent AFib with HR mostly below 100 now. Continue Toprol and Cardizem. Not on shelter anticoagulation due to increased bleeding risk but does take ASA 3 times per week. off tele now (5) Type 2 diabetes mellitus with hyperglycemia: Code(s): E11.65 - Type 2 diabetes mellitus with hyperglycemia Status: Acute Assessment and Plan: A1c 6.4. The patient's blood glucose was reviewed on 12/22 Glucose better FBS 140 . Continue AccuCheks covering with sliding scale. Hypoglycemia protocol available as needed. Continue current medications. (6) Compression fracture: Status: Acute Assessment and Plan: Kian developed back pain about 3 weeks ago. No trauma. CTA chest showing new compression fractures of the T5 and T6 vertebral bodies. Increase activity as tolerated. still weak and may need placement , CC evaluating (7) DVT prophylaxis: Code(s): Z29.9 - Encounter for prophylactic measures, unspecified Status: Acute Assessment and Plan: Lovenox Subjective Date/time seen: 12/23/20 16:15 Interval history: Date of service 12/23 69-year-old male with atrial fibrillation, lung cancer, chronic respiratory failure, COPD, CHF, diabetes, pulmonary hypertension and CKD here for increasing shortness of breath. Slept okay. No CP. SOB better but more with KAN when working with therapy. Also still back pain today that he feels related to the increase in activity. Exam Narrative: Exam Narrative: AF 96.9 124/72 90 18 93% 4L Gen - NARD sitting up in bed Chest - distant BS, nml RR CV - irregularly-irregular. Abd -soft. Non tender. Pos
--- NOTE | 2020-12-23 16:42 | PDONCCN ---
HPI - Date of Consult Date/Time: 12/23/20 16:42 Requesting Physician: Maria Esther Trotter DO Primary Care Provider: You Box MD - Consult Narrative Reason for consult: Lung cancer. Narrative: Orville Brandt is a 69 year old male with history of COPD on home oxygen of 3.5 L was diagnosed with bronchogenic carcinoma on the imaging studies and received SBRT treatment in December of 2019 and then again in August of 2020 further relapsed disease. Patient was admitted to the hospital with worsening of shortness of breath and cough. He denies any chest pain. Denies any weight loss. CT chest showed no pulmonary embolism but the right upper lobe lung mass was enlarged from 2.1 cm previously to now 4.2 cm. Patient diagnosed with Streptococcus bacteremia and was started on antibiotic treatment. Patient also had colonoscopy done on December 21 that showed colonic polyps. Patient is now feeling better with improvement in cough and shortness of breath. His WBC count has improved from 20/8 1002 down to 13.8. Hemoglobin stable at 11.2 which is improvement from yesterday. Review of Systems - Review of Systems All systems reviewed & are unremarkable except as noted in HPI and bel - Neurologic Denies numbness [facility] Medical History: Medical History (Last Updated 12/19/20 @ 16:00 by Seth Elizondo MD) Chronic atrial fibrillation Chronic kidney disease, stage 3 Chronic obstructive pulmonary disease Chronic respiratory failure with hypoxia and hypercapnia Closed compression fracture of thoracic vertebra Combined systolic and diastolic congestive heart failure Echocardiogram August 2018: Severe right ventricular enlargement, severe pulmonary hypertension, ejection fraction 45-50%, indeterminate diastolic function, mild global left ventricular systolic dysfunction, moderate left atrial enlargement, severe right atrial enlargement, moderate mitral valve regurgitation Diabetes mellitus Former smoker Gout Malignant neoplasm of upper lobe, right bronchus or lung diagnosed March 2020 treated with 5 rounds of radiation therapy. Had a relapse her cancer August 2020 and completed a 2nd round of radiation therapy. He is supposed to have a repeat CT scan late November 2020. He is not a candidate for biopsy or for lobectomy due to his lung function. Mixed hyperlipidemia RICHY (obstructive sleep apnea) On trilogy Pulmonary hypertension Severe Rectal cancer chemoradiation and resection in 2005. Streptococcal bacteremia Thrombocytopenia Surgical History: Surgical History (Last Updated 12/17/20 @ 08:44 by Maria Esther Trotter DO) Colostomy in place Corneal transplant status Left eye due to viral infection History of appendectomy History of back surgery History of colectomy Colectomy due to rectal cancer in 1999 6 with subsequent small-bowel obstruction requiring ileostomy and subsequent revision of ileostomy back to a colostomy History of ileostomy History of left cataract extraction Hx of cholecystectomy Family History: Family History (Last Updated 12/17/20 @ 07:39 by Maria Esther Trotter DO) Father , at age 59 Acute myocardial infarction, Onset Age: 59 Heart disease Mother , At age 76 COPD (chronic obstructive pulmonary disease) Grandparent Diabetes mellitus Sibling COPD (chronic obstructive pulmonary disease) Multiple siblings Colon cancer Younger brother - Social History Social History: Social History (Last Updated 12/17/20 @ 07:46 by Maria Esther Trotter DO) Gender Identity: Gender identity (if verbalized by the patient): Male Sexual Orientation: Sexual Orientation (if Verbalized by the Patient): Straight or Heterosexual Alcohol Use: Alcohol intake: former Drinks per week: 0 Drinks per week comment: NO ETOH SINCE 2014 Substance Use: Substance use: former Substance use type: marijuana Other substance usage de
[2020-12-23 16:49] LABS: Glucose Point of Care 269 (65-105)
[2020-12-23 16:49] LABS: Glucose Point of Care 319 (65-105)
[2020-12-23 18:32] LABS: Hematocrit 29.7 % (42.0-52.0); Hemoglobin 9.6 g/dL (14.0-18.0); Immature Platelet Fraction Pct 9.4 % (0.9-11.2); Mean Corpuscular HGB Conc 32.3 g/dl (32-36); Mean Corpuscular Hemoglobin 33.9 pg (26-34); Mean Corpuscular Volume 104.9 fl (80-100); Mean Platelet Volume 11.4 fl (7.4-10.4); Platelet Count Result 151 k/mm3 (150-375); Red Blood Count 2.83 M/mm3 (4.6-6.20); Red Cell Distribution Width 14.5 % (11.5-14.5); White Blood Count 18.4 K/mm3 (4.5-10.0)
[2020-12-23 18:46] LABS: Blood Urea Nitrogen 34 mg/dL (9-20); Calcium 8.7 mg/dL (8.4-10.2); Carbon Dioxide > 40 mmol/L (22-30); Chloride 97 mmol/L (98-107); Estimated CRCL calculation 42 ml/min; Estimated Glomerular Filt Rate 46; Glucose 241 mg/dL (75-110); Potassium 4.7 mmol/L (3.4-5.0); Sodium 136 mmol/L (137-145)
[2020-12-23] MEDS: traZODone HCL 50 MG TABLET PO (21:34)
[2020-12-23 22:06] LABS: Hematocrit 28.9 % (42.0-52.0); Hemoglobin 9.4 g/dL (14.0-18.0); Mean Corpuscular HGB Conc 32.5 g/dl (32-36); Mean Corpuscular Hemoglobin 34.1 pg (26-34); Mean Corpuscular Volume 104.7 fl (80-100); Mean Platelet Volume 11.5 fl (7.4-10.4); Platelet Count Result 129 k/mm3 (150-375); Red Blood Count 2.76 M/mm3 (4.6-6.20); Red Cell Distribution Width 14.5 % (11.5-14.5); White Blood Count 17.9 K/mm3 (4.5-10.0)
[2020-12-23 22:32] LABS: Glucose Point of Care 247 (65-105)
[2020-12-24] VITALS (16 sets, daily range): BP systolic 95–108; BP diastolic 59–74; PULSE 76–111; RESP 18–20; TEMP 35.9–37; O2SAT 91–100
[2020-12-24] MEDS: AMPICILLIN SULB 3 GM/NS 100 ML 3 GM/100 ML VIAL IVPB ×4 (00:41→18:02)
[2020-12-24] MEDS: IPRATROPIUM BR 0.02% INH SOLN 0.5 MG/2.5 ML VIAL INHALATION ×3 (02:10→19:53)
[2020-12-24 03:20] LABS: IFOB Positive Control Positive; Immunochemical Fecal Occult Bl Positive (N)
[2020-12-24] MEDS: HYDROcodone/acetaminophen (*CRX) 5-325 MG TABLET 1 TAB PO ×3 (04:13→18:00)
[2020-12-24 06:16] LABS: Hemoglobin 7.7 g/dL (14.0-18.0); Immature Platelet Fraction Pct 8.7 % (0.9-11.2); Mean Corpuscular HGB Conc 32.1 g/dl (32-36); Mean Corpuscular Hemoglobin 33.8 pg (26-34); Mean Corpuscular Volume 105.3 fl (80-100); Mean Platelet Volume 11.7 fl (7.4-10.4); Platelet Count Result 124 k/mm3 (150-375); Red Blood Count 2.28 M/mm3 (4.6-6.20); Red Cell Distribution Width 14.6 % (11.5-14.5); White Blood Count 14.7 K/mm3 (4.5-10.0)
[2020-12-24 06:30] LABS: Anion Gap -1 mmol/L (8-16); Blood Urea Nitrogen 34 mg/dL (9-20); Calcium 8.2 mg/dL (8.4-10.2); Carbon Dioxide 38 mmol/L (22-30); Chloride 98 mmol/L (98-107); Estimated CRCL calculation 42 ml/min; Estimated Glomerular Filt Rate 46; Glucose 180 mg/dL (75-110); Sodium 135 mmol/L (137-145)
[2020-12-24 06:58] LABS: Lymphocytes Absolute Manual 1.17 K/mm3 (1.1-4.5); Monocytes Absolute Manual 1.61 K/mm3 (0.1-0.90); Monocytes Percent Manual 11 % (3-9); Neutrophils Percent Manual 81 % (46-73); Platelet Estimate Adequate (Adequate); Total Cells Counted 100
[2020-12-24 06:59] LABS: Acanthocytes 1+ (NORMAL); Atypical Lymphocytes Present; Crenated RBC 1+ (NORMAL); Hypochromasia 1+ (NORMAL); Ovalocytes 1+ (NORMAL)
[2020-12-24] MEDS: SODIUM CHLORIDE 0.9% IV 250 ML 30 ML IV CONT (07:19)
[2020-12-24 08:31] LABS: Glucose Point of Care 146 (65-105)
[2020-12-24] MEDS: allopurinoL 300 MG TABLET PO (09:29)
[2020-12-24] MEDS: FUROSEMIDE 40 MG TABLET PO (09:30)
[2020-12-24] MEDS: guaiFENesin 12 HR 600 MG TABCR PO ×2 (09:30→21:14)
[2020-12-24] MEDS: ASCORBIC ACID 500 MG TABLET BY MOUTH (09:30)
[2020-12-24] MEDS: ATORVASTATIN 40 MG TABLET PO (09:30)
[2020-12-24] MEDS: predniSONE 10 MG TABLET PO (09:30)
[2020-12-24] MEDS: METOPROLOL SUCCINATE EXT REL 100 MG TABCR PO ×2 (09:31→21:15)
[2020-12-24] MEDS: LIDOCAINE 5% PATCH 2 PATCH TRANSDERM (09:31)
[2020-12-24] MEDS: OMEGA 3 POLYUNSAT FATTY ACIDS 1 GM CAP PO ×4 (09:31→21:14)
[2020-12-24] MEDS: TAMSULOSIN HCL 0.4 MG CAPSULE PO (09:32)
[2020-12-24] MEDS: PANTOPRAZOLE SOD SESQUIHYDRATE 20 MG TAB PO (09:32)
[2020-12-24 12:33] LABS: Glucose Point of Care 217 (65-105)
[2020-12-24] MEDS: INSULIN ASPART (*BKC) 100 UNITS/ML SUB-Q ×2 (13:21→17:59)
--- NOTE | 2020-12-24 14:15 | PCPTNOTE ---
Patient refused Physical therapy treatment this date. Patient stated they haven't been putting the bed alarm on because I have to sit up and take care of this bag Confirmed with patient's RN that bed alarm is kept off. Patient's phone and call light in reach.
--- NOTE | 2020-12-24 15:08 | PM.IMPN ---
Progress Note: A&P Assessment and Plan (1) Sepsis: Code(s): A41.9 - Sepsis, unspecified organism Status: Acute Assessment and Plan: Sepsis with septicemia on admission with lactic acidosis, leukocytosis with left shift and tachycardia. [place] related to the pneumonia and septicemia. BCx (2of2) positive for gram-positive cocci in chains in anaerobic bottle only. White count back up slightly 12/22, and unchanged today 12/24. Continue Vancomycin and Unasyn given anaerobic positive cx. 1 set anaerobic bottle streptococcus gallolyticus, other anerobic set granulecetella adiacens repeat culture NG so far and colonoscope 12/21 polyps only with no malignancy echo no vegetations. with pul htn 64 and decreased R ventr function D#7 Unasyn and vanc (2) Pneumonia: Qualifiers: Laterality: bilateral Lung location: lower lobe of lung Pneumonia type: due to unspecified organism Qualified Code(s): J18.9 - Pneumonia, unspecified organism Code(s): J18.9 - Pneumonia, unspecified organism Status: Acute Assessment and Plan: CTA showing no pulmonary emboli. Minimal airspace opacities bilateral lower lobes noted. Patient has chronic respiratory failure on home O2 at 3L at rest and 4L with activity and uses Trilogy at night. Patient is close to baseline. Albuterol available as needed. Continue IV abx. D# 7 of suseptible antibiotics (3) Malignant neoplasm of upper lobe, right bronchus or lung: Code(s): C34.11 - Malignant neoplasm of upper lobe, right bronchus or lung Status: Acute Assessment and Plan: CTA Chest showing right upper lobe 4.2 cm mass that has doubled in size since July. Patient has a medically inoperable early stage lung cancer reviewed he is not a candidate for surgery or even biopsy due to his severe COPD. He completed course of SBRT from 01/19-02/02/20 and again 09/08-09/15/20. Plans for PET scan at the end of the month. oncology seen and may want to pursue biopsy (4) Atrial fibrillation: Qualifiers: Atrial fibrillation type: unspecified Qualified Code(s): I48.91 - Unspecified atrial fibrillation Code(s): I48.91 - Unspecified atrial fibrillation Status: Acute Assessment and Plan: EKG showed atrial fibrillation with RVR. Patient on tele and showing persistent AFib with HR mostly below 100 now. Continue Toprol and Cardizem. Not on technician terminal and repeater anticoagulation due to increased bleeding risk but does take ASA 3 times per week. off tele now (5) Type 2 diabetes mellitus with hyperglycemia: Code(s): E11.65 - Type 2 diabetes mellitus with hyperglycemia Status: Acute Assessment and Plan: A1c 6.4. The patient's blood glucose was reviewed on 12/24 Glucose better FBS 146 . Continue AccuCheks covering with sliding scale. Hypoglycemia protocol available as needed. Continue current medications. (6) Compression fracture: Status: Acute Assessment and Plan: Kian developed back pain about 3 weeks ago. No trauma. CTA chest showing new compression fractures of the T5 and T6 vertebral bodies. Increase activity as tolerated. still weak and may need placement , CC evaluating (7) DVT prophylaxis: Code(s): Z29.9 - Encounter for prophylactic measures, unspecified Status: Acute Assessment and Plan: mechanical with GI bleed (8) Lower GI bleed: Code(s): K92.2 - Gastrointestinal hemorrhage, unspecified Status: Acute Assessment and Plan: Hemoglobin dropped from 14-7.7 over the course of hospitalization. Did have blood in his colostomy bag. Appears to be lower GI from consistency and fact a BUN has not risen. Colonoscope exam 12/21 had multiple small polyps removed. With hemoglobin falling that much will give 1 unit of packed cells and continue to monitor Subjective Date/time seen: 12/24/20 15:09 Interval history: Date of service 12/24 69-year-old m
[2020-12-24 15:57] LABS: Hematocrit 26.7 % (42.0-52.0); Hemoglobin 8.8 g/dL (14.0-18.0); Mean Corpuscular Hemoglobin 33.5 pg (26-34); Mean Corpuscular Volume 101.5 fl (80-100); Mean Platelet Volume 11.4 fl (7.4-10.4); Platelet Count Result 121 k/mm3 (150-375); Red Blood Count 2.63 M/mm3 (4.6-6.20); Red Cell Distribution Width 16.5 % (11.5-14.5); White Blood Count 18.3 K/mm3 (4.5-10.0)
[2020-12-24 17:57] LABS: Glucose Point of Care 235 (65-105)
[2020-12-24 20:05] LABS: Hematocrit 27.7 % (42.0-52.0); Mean Corpuscular HGB Conc 32.5 g/dl (32-36); Mean Corpuscular Hemoglobin 33.2 pg (26-34); Mean Corpuscular Volume 102.2 fl (80-100); Mean Platelet Volume 11.8 fl (7.4-10.4); Platelet Count Result 109 k/mm3 (150-375); Red Blood Count 2.71 M/mm3 (4.6-6.20); Red Cell Distribution Width 16.4 % (11.5-14.5); White Blood Count 17.2 K/mm3 (4.5-10.0)
[2020-12-24] MEDS: traZODone HCL 50 MG TABLET PO (21:15)
[2020-12-24 22:04] LABS: Glucose Point of Care 297 (65-105)
[2020-12-25] VITALS (13 sets, daily range): BP systolic 91–111; BP diastolic 56–65; PULSE 78–92; RESP 18–20; TEMP 36.3–37.1; O2SAT 91–100
[2020-12-25] MEDS: HYDROcodone/acetaminophen (*CRX) 5-325 MG TABLET 1 TAB PO ×5 (00:06→23:30)
[2020-12-25] MEDS: AMPICILLIN SULB 3 GM/NS 100 ML 3 GM/100 ML VIAL IVPB ×5 (00:07→23:26)
[2020-12-25] MEDS: IPRATROPIUM BR 0.02% INH SOLN 0.5 MG/2.5 ML VIAL INHALATION ×4 (02:15→21:06)
[2020-12-25 06:28] LABS: Hematocrit 24.3 % (42.0-52.0); Hemoglobin 7.8 g/dL (14.0-18.0); Immature Platelet Fraction Pct 7.8 % (0.9-11.2); Mean Corpuscular HGB Conc 32.1 g/dl (32-36); Mean Corpuscular Hemoglobin 32.4 pg (26-34); Mean Corpuscular Volume 100.8 fl (80-100); Mean Platelet Volume 11.1 fl (7.4-10.4); Platelet Count Result 100 k/mm3 (150-375); Red Blood Count 2.41 M/mm3 (4.6-6.20); Red Cell Distribution Width 16.3 % (11.5-14.5); White Blood Count 14.3 K/mm3 (4.5-10.0)
[2020-12-25 06:51] LABS: Blood Urea Nitrogen 31 mg/dL (9-20); Calcium 8.3 mg/dL (8.4-10.2); Carbon Dioxide > 40 mmol/L (22-30); Chloride 99 mmol/L (98-107); Estimated CRCL calculation 41 ml/min; Estimated Glomerular Filt Rate 46; Glucose 159 mg/dL (75-110); Potassium 4.3 mmol/L (3.4-5.0); Sodium 135 mmol/L (137-145)
[2020-12-25 07:02] LABS: Acanthocytes 1+ (NORMAL); Anisocytosis 1+ (NORMAL); Atypical Lymphocytes Present; Eosinophils Absolute Manual 0.28 K/mm3 (0.02-0.5); Eosinophils Percent Manual 2 % (0-4); Hypochromasia 1+ (NORMAL); Lymphocytes Absolute Manual 0.57 K/mm3 (1.1-4.5); Monocytes Percent Manual 7 % (3-9); Neutrophils Percent Manual 87 % (46-73); Nucleated Red Blood Cells 1 %; Ovalocytes 1+ (NORMAL); Total Cells Counted 100
[2020-12-25] MEDS: allopurinoL 300 MG TABLET PO (09:02)
[2020-12-25] MEDS: ASCORBIC ACID 500 MG TABLET BY MOUTH (09:03)
[2020-12-25] MEDS: ATORVASTATIN 40 MG TABLET PO (09:03)
[2020-12-25] MEDS: predniSONE 10 MG TABLET PO (09:03)
[2020-12-25] MEDS: guaiFENesin 12 HR 600 MG TABCR PO ×2 (09:04→23:25)
[2020-12-25] MEDS: FLUTICASONE/UMECLIDIN/VILANTER 100-62.5-25 MCG ELLIPTA 1 PUFF INHALATION (09:04)
[2020-12-25] MEDS: FUROSEMIDE 40 MG TABLET PO (09:04)
[2020-12-25] MEDS: METOPROLOL SUCCINATE EXT REL 100 MG TABCR PO ×2 (09:05→23:21)
[2020-12-25] MEDS: PANTOPRAZOLE SOD SESQUIHYDRATE 20 MG TAB PO (09:05)
[2020-12-25] MEDS: OMEGA 3 POLYUNSAT FATTY ACIDS 1 GM CAP PO ×4 (09:05→23:21)
[2020-12-25] MEDS: LIDOCAINE 5% PATCH 2 PATCH TRANSDERM (09:05)
[2020-12-25] MEDS: TAMSULOSIN HCL 0.4 MG CAPSULE PO (09:06)
[2020-12-25 09:07] LABS: Hematocrit 25.8 % (42.0-52.0); Hemoglobin 8.5 g/dL (14.0-18.0)
[2020-12-25 09:30] LABS: Glucose Point of Care 162 (65-105)
[2020-12-25 12:11] LABS: Glucose Point of Care 196 (65-105)
[2020-12-25] MEDS: ACETAMINOPHEN 325 MG TABLET 650 MG PO ×2 (14:01→23:29)
[2020-12-25 14:14] LABS: Hematocrit 27.4 % (42.0-52.0); Hemoglobin 8.9 g/dL (14.0-18.0)
[2020-12-25 14:47] LABS: Vancomycin Trough 15.6 ug/mL (10.0-20.0)
--- NOTE | 2020-12-25 15:50 | PM.IMPN ---
Progress Note: A&P Assessment and Plan (1) Sepsis: Code(s): A41.9 - Sepsis, unspecified organism Status: Acute Assessment and Plan: Sepsis with septicemia on admission with lactic acidosis, leukocytosis with left shift and tachycardia. [place] related to the pneumonia and septicemia. BCx (2of2) positive for gram-positive cocci in chains in anaerobic bottle only. White count still 14.3K . Continue Vancomycin and Unasyn given anaerobic positive cx. 1 set anaerobic bottle streptococcus gallolyticus, other anerobic set granulecetella adiacens repeat culture NG so far and colonoscope 12/21 tubulo villious adenomatous polyps only with no malignancy or high grade dyplasia echo no vegetations. with pul htn 64 and decreased R ventr function D#8 Unasyn and vanc, probable d/c 12/26 or 2 (2) Pneumonia: Qualifiers: Laterality: bilateral Lung location: lower lobe of lung Pneumonia type: due to unspecified organism Qualified Code(s): J18.9 - Pneumonia, unspecified organism Code(s): J18.9 - Pneumonia, unspecified organism Status: Acute Assessment and Plan: CTA showing no pulmonary emboli. Minimal airspace opacities bilateral lower lobes noted. Patient has chronic respiratory failure on home O2 at 3L at rest and 4L with activity and uses Trilogy at night. Patient is close to baseline. Albuterol available as needed. Continue IV abx. D# 8 of suseptible antibiotics (3) Malignant neoplasm of upper lobe, right bronchus or lung: Code(s): C34.11 - Malignant neoplasm of upper lobe, right bronchus or lung Status: Acute Assessment and Plan: CTA Chest showing right upper lobe 4.2 cm mass that has doubled in size since July. Patient has a medically inoperable early stage lung cancer reviewed he is not a candidate for surgery or even biopsy due to his severe COPD. He completed course of SBRT from 01/19-02/02/20 and again 09/08-09/15/20. Plans for PET scan at the end of the month. oncology seen and may want to pursue biopsy (4) Atrial fibrillation: Qualifiers: Atrial fibrillation type: unspecified Qualified Code(s): I48.91 - Unspecified atrial fibrillation Code(s): I48.91 - Unspecified atrial fibrillation Status: Acute Assessment and Plan: EKG showed atrial fibrillation with RVR. Patient on tele and showing persistent AFib with HR mostly below 100 now. Continue Toprol and Cardizem. Not on intermediate card tender anticoagulation due to increased bleeding risk but does take ASA 3 times per week. off tele now (5) Type 2 diabetes mellitus with hyperglycemia: Code(s): E11.65 - Type 2 diabetes mellitus with hyperglycemia Status: Acute Assessment and Plan: A1c 6.4. The patient's blood glucose was reviewed on 12/25 Glucose better FBS 159 . Continue AccuCheks covering with sliding scale. Hypoglycemia protocol available as needed. Continue current medications. (6) Compression fracture: Status: Acute Assessment and Plan: [place] developed back pain about 3 weeks ago. No trauma. CTA chest showing new compression fractures of the T5 and T6 vertebral bodies. Increase activity as tolerated. still weak and may need placement , CC evaluating (7) DVT prophylaxis: Code(s): Z29.9 - Encounter for prophylactic measures, unspecified Status: Acute Assessment and Plan: mechanical with GI bleed (8) Lower GI bleed: Code(s): K92.2 - Gastrointestinal hemorrhage, unspecified Status: Acute Assessment and Plan: Hemoglobin dropped from 14-7.7 over the course of hospitalization. Did have blood in his colostomy bag. Appears to be lower GI from consistency and fact a BUN has not risen. Colonoscope exam 12/21 had multiple small polyps removed. With hemoglobin falling that much gave 1 unit of packed cells 12/24 and hgb 8.9 12/25 PM Subjective Date/time seen: 12/25/20 15:50 Interval his
[2020-12-25] MEDS: INSULIN ASPART (*BKC) 100 UNITS/ML SUB-Q (17:38)
[2020-12-25 18:03] LABS: Glucose Point of Care 271 (65-105)
[2020-12-25] MEDS: traZODone HCL 50 MG TABLET PO (23:26)
[2020-12-25 23:46] LABS: Glucose Point of Care 189 (65-105)
[2020-12-26] VITALS (14 sets, daily range): BP systolic 93–123; BP diastolic 67–72; PULSE 52–101; RESP 18–20; TEMP 36.2–36.9; O2SAT 94–99
[2020-12-26] MEDS: IPRATROPIUM BR 0.02% INH SOLN 0.5 MG/2.5 ML VIAL INHALATION ×4 (02:33→20:52)
[2020-12-26] MEDS: AMPICILLIN SULB 3 GM/NS 100 ML 3 GM/100 ML VIAL IVPB ×3 (05:23→17:50)
[2020-12-26] MEDS: ACETAMINOPHEN 325 MG TABLET 650 MG PO (05:46)
[2020-12-26] MEDS: HYDROcodone/acetaminophen (*CRX) 5-325 MG TABLET 1 TAB PO ×3 (05:46→23:44)
[2020-12-26 06:52] LABS: Basophils Percent Auto 0.2 % (0.2-1.2); Eosinophils Absolute Auto 0.1 K/mm3 (0-0.3); Eosinophils Percent Auto 0.7 % (0-4.4); Hematocrit 23.3 % (42.0-52.0); Hemoglobin 7.3 g/dL (14.0-18.0); Immature Granulocyte Absolute 0.62 K/mm3 (0.00-0.031); Immature Granulocyte Percent A 4.7 % (0-0.5); Lymphocytes Percent Auto 3.8 % (18.3-44.2); Mean Corpuscular HGB Conc 31.3 g/dl (32-36); Mean Corpuscular Hemoglobin 32.3 pg (26-34); Mean Corpuscular Volume 103.1 fl (80-100); Mean Platelet Volume 11.4 fl (7.4-10.4); Monocytes Percent Auto 7.8 % (2.6-8.5); Neutrophils Absolute Auto 10.9 K/mm3 (1.3-6.7); Neutrophils Percent Auto 82.8 % (45.5-73.1); Nucleated Red Blood Cells Absolute Auto 0.1 K/mm3 (0.0-0.012); Nucleated Red Blood Cells Perc 0.5 % (0.0-0.2); Platelet Count Result 95 k/mm3 (150-375); Red Blood Count 2.26 M/mm3 (4.6-6.20); Red Cell Distribution Width 16.3 % (11.5-14.5); White Blood Count 13.2 K/mm3 (4.5-10.0)
[2020-12-26 07:03] LABS: Alanine Aminotransferase 41 U/L (4-50); Albumin Level 2.5 g/dL (3.5-5.1); Alkaline Phosphatase 58 U/L (38-126); Anion Gap -1 mmol/L (8-16); Aspartate Amino Transferase 31 U/L (17-59); Bilirubin,Total 0.5 mg/dL (0.2-1.3); Blood Urea Nitrogen 31 mg/dL (9-20); Calcium 8.2 mg/dL (8.4-10.2); Carbon Dioxide 39 mmol/L (22-30); Chloride 97 mmol/L (98-107); Estimated CRCL calculation 37 ml/min; Estimated Glomerular Filt Rate 40; Glucose 143 mg/dL (75-110); Potassium 4.2 mmol/L (3.4-5.0); Sodium 135 mmol/L (137-145)
[2020-12-26 07:34] LABS: Anisocytosis 1+ (NORMAL); Ovalocytes 1+ (NORMAL); Platelet Estimate Decreased (Adequate)
[2020-12-26 09:15] LABS: Glucose Point of Care 131 (65-105)
[2020-12-26] MEDS: FLUTICASONE/UMECLIDIN/VILANTER 100-62.5-25 MCG ELLIPTA 1 PUFF INHALATION (09:33)
[2020-12-26] MEDS: LIDOCAINE 5% PATCH 2 PATCH TRANSDERM (10:29)
[2020-12-26] MEDS: OMEGA 3 POLYUNSAT FATTY ACIDS 1 GM CAP PO ×4 (10:30→20:02)
[2020-12-26] MEDS: ATORVASTATIN 40 MG TABLET PO (10:30)
[2020-12-26] MEDS: predniSONE 10 MG TABLET PO (10:30)
[2020-12-26] MEDS: FUROSEMIDE 40 MG TABLET PO (10:30)
[2020-12-26] MEDS: PANTOPRAZOLE SOD SESQUIHYDRATE 20 MG TAB PO (10:30)
[2020-12-26] MEDS: allopurinoL 300 MG TABLET PO (10:30)
[2020-12-26] MEDS: ASCORBIC ACID 500 MG TABLET BY MOUTH (10:30)
[2020-12-26] MEDS: guaiFENesin 12 HR 600 MG TABCR PO ×2 (10:30→20:02)
[2020-12-26] MEDS: TAMSULOSIN HCL 0.4 MG CAPSULE PO (10:30)
[2020-12-26] MEDS: METOPROLOL SUCCINATE EXT REL 100 MG TABCR PO ×2 (10:35→20:01)
--- NOTE | 2020-12-26 11:46 | PM.IMPN ---
Progress Note: A&P Assessment and Plan (1) Sepsis: Code(s): A41.9 - Sepsis, unspecified organism Status: Acute Assessment and Plan: Sepsis with septicemia on admission with lactic acidosis, leukocytosis with left shift and tachycardia. [place] related to the pneumonia and septicemia. BCx (2of2) positive for gram-positive cocci in chains in anaerobic bottle only. 1 set anaerobic bottle streptococcus gallolyticus, other anerobic set granulecetella adiacens and CN Staph. Repeat blood cultures negative. Colonoscopy 12/21 adenomatous polyps only with no malignancy or high grade dysplasia. Echo no vegetations but with pulm HTN 64 and decreased R ventr function. D#9 of Unasyn and vanc. White count down to 13K. Continue Vancomycin and Unasyn. ID consult to see if further workup warranted. (2) Pneumonia: Qualifiers: Laterality: bilateral Lung location: lower lobe of lung Pneumonia type: due to unspecified organism Qualified Code(s): J18.9 - Pneumonia, unspecified organism Code(s): J18.9 - Pneumonia, unspecified organism Status: Acute Assessment and Plan: CTA showing no pulmonary emboli. Minimal airspace opacities bilateral lower lobes noted. Patient has chronic respiratory failure on home O2 at 3L at rest and 4L with activity and uses Trilogy at night. Patient is close to baseline. Continue IV abx. D# 9 of susceptible antibiotics. Encouraged BiPAP use. (3) Malignant neoplasm of upper lobe, right bronchus or lung: Code(s): C34.11 - Malignant neoplasm of upper lobe, right bronchus or lung Status: Acute Assessment and Plan: CTA Chest showing right upper lobe 4.2 cm mass that has doubled in size since July. Patient has a medically inoperable early stage lung cancer reviewed he is not a candidate for surgery or even biopsy due to his severe COPD. He completed course of SBRT from 01/19-02/02/20 and again 09/08-09/15/20. Plans for PET scan. oncology seen and may want to pursue biopsy (4) Atrial fibrillation: Qualifiers: Atrial fibrillation type: unspecified Qualified Code(s): I48.91 - Unspecified atrial fibrillation Code(s): I48.91 - Unspecified atrial fibrillation Status: Acute Assessment and Plan: EKG showed atrial fibrillation with RVR. Patient was on tele and showing persistent AFib with HR mostly below 100 now. Continue Toprol and Cardizem. Watch BP. Not on penitentiary anticoagulation due to increased bleeding risk but does take ASA 3 times per week. off tele now Add parameters. (5) Type 2 diabetes mellitus with hyperglycemia: Code(s): E11.65 - Type 2 diabetes mellitus with hyperglycemia Status: Acute Assessment and Plan: A1c 6.4. The patient's blood glucose was reviewed on 12/26 Glucose better. Continue AccuCheks covering with sliding scale. Hypoglycemia protocol available as needed. Continue current medications. (6) Compression fracture: Status: Acute Assessment and Plan: Kian developed back pain about 3 weeks ago. No trauma. CTA chest showing new compression fractures of the T5 and T6 vertebral bodies. Increase activity as tolerated. Still weak and may needs placement. Encouraged compliance with PT/OT. CC evaluating (7) DVT prophylaxis: Code(s): Z29.9 - Encounter for prophylactic measures, unspecified Status: Acute Assessment and Plan: Mechanical with GI bleed (8) Lower GI bleed: Code(s): K92.2 - Gastrointestinal hemorrhage, unspecified Status: Acute Assessment and Plan: Hemoglobin dropped from 14-7.7 over the course of hospitalization. Did have blood in his colostomy bag. Appears to be lower GI from consistency and fact a BUN has not risen. Colonoscope exam 12/21 had multiple small polyps removed. With hemoglobin falling that much gave 1 unit of packed cells 12/24. Hgb climbed to 9.0 but back down to 7.3 today. Con
--- NOTE | 2020-12-26 12:17 | WPDINFPN2 ---
Progress Note: A&P Assessment and Plan (1) Streptococcal bacteremia: Code(s): R78.81 - Bacteremia; B95.5 - Unspecified streptococcus as the cause of diseases classified elsewhere Status: Acute Assessment and Plan: Polymicrobial bacteremia with infection, GI vs lung source REC AmpSulbactam through tonight, then oral x 3 days, see orders. No further eval needed at present Subjective Date/time seen: 12/26/20 12:17 Objective Data Vital Signs Vital Signs: Vital Signs - 24 hr 12/25/20 14:00 12/25/20 15:31 12/25/20 20:00 Temperature 37.1 C Pulse Rate 78 82 Respiratory Rate 18 20 Blood Pressure 100/56 L Pulse Oximetry 98 100 12/25/20 21:06 12/25/20 21:07 12/25/20 22:00 Temperature 36.4 C Pulse Rate 88 84 92 Respiratory Rate 20 20 18 Blood Pressure 91/60 L Pulse Oximetry 94 100 12/25/20 23:21 12/26/20 02:07 12/26/20 05:44 Temperature 36.3 C L Pulse Rate 92 80 81 Respiratory Rate 20 18 Blood Pressure 93/67 L Pulse Oximetry 95 12/26/20 08:00 12/26/20 09:33 12/26/20 09:35 Temperature Pulse Rate 85 Respiratory Rate 20 Blood Pressure Pulse Oximetry 99 94 12/26/20 09:46 12/26/20 10:35 Temperature Pulse Rate 86 52 L Respiratory Rate 20 Blood Pressure Pulse Oximetry Intake/Output Intake/Output: Intake & Output 12/23/20 12/24/20 12/25/20 12/26/20 23:59 23:59 23:59 23:59 Intake Total 2590 2144 1940 720 Output Total 1950 1000 2250 800 Balance 640 1144 -310 -80 Meds/Results Medications: Active Medications Generic Name Dose Route Start Last Admin Trade Name Freq PRN Reason Stop Dose Admin Acetaminophen 650 mg 12/19/20 17:32 12/26/20 05:46 Acetaminophen 325 Mg Tablet PO 650 mg Q6H PRN Administration Mild Pain (1-5) Or Fever Hydrocodone Bitart/Acetaminophen 1 tab 12/19/20 17:32 12/26/20 05:46 Hydrocodone/Acetaminophen (*Crx) 5-325 Mg Tablet PO 1 tab Q6H PRN Administration Pain Rated 6-10 Allopurinol 300 mg 12/17/20 08:00 12/26/20 10:30 Allopurinol 300 Mg Tablet PO 300 mg DAILY@0800 COOKIE Administration Ascorbic Acid 500 mg 12/17/20 09:00 12/26/20 10:30 Ascorbic Acid 500 Mg Tablet BY MOUTH 500 mg DAILY COOKIE Administration Aspirin 325 mg 12/18/20 08:00 12/20/20 08:49 Aspirin 325 Mg Tablet PO 325 mg [id number]@[id number] COOKIE Administration Atorvastatin Calcium 40 mg 12/17/20 09:00 12/26/20 10:30 Atorvastatin 40 Mg Tablet PO 40 mg DAILY COOKIE Administration Dextrose 12.5 gm 12/17/20 04:27 Dextrose 50% 25 Gm/50 Ml Syringe IV PUSH PRN PRN Hypoglycemia Protocol Diltiazem HCl 120 mg 12/17/20 09:00 12/26/20 10:35 Diltiazem Hcl Cd 120 Mg Cap.Sa.24h PO 120 mg DAILY COOKIE Administration Fish Oil 1 gm 12/17/20 09:00 12/26/20 10:30 [place] 3 Polyunsat Fatty Acids 1 Gm Cap PO 1 gm QID COOKIE Administration Fluticasone/Umeclidinium/Vilanterol 1 puff 12/17/20 09:00 12/26/20 09:33 Fluticasone/Umeclidin/Vilanter 100-62.5-25 Mcg Ellipta INHALATION 1 puff DAILY COOKIE Administration Furosemide 40 mg 12/20/20 09:00 12/26/20 10:30 Furosemide 40 Mg Tablet PO 40 mg QAM COOKIE Administration Glucagon 1 mg 12/17/20 04:27 Glucagon For Inj 1 Mg Vial IM PRN PRN Hypoglycemia Protocol Glucose 15 gm 12/17/20 04:27 Glucose Oral Gel 15 Gm Of Glucse In 37.5 Gm Tube PO PRN PRN Hypoglycemia Protocol Guaifenesin 600 mg 12/18/20 14:35 12/26/20 10:30 Guaifenesin 12 Hr 600 Mg Tabcr PO 600 mg Q12HR COOKIE Administration Dextrose 1,000 mls @ 100 mls/hr 12/17/20 04:27 Dextrose 5% 1,000 Ml IVPB PRN PRN Hypoglycemia Protocol Ampicillin Sodium/Sulbactam Sodium 3 gm in 100 mls @ 200 mls/hr 12/18/20 12:40 12/26/20 05:53 Unasyn 3 Gm/Ns 100 Ml IVPB 12/26/20 23:59 Infused Q6HR COOKIE Infusion Insulin Aspart 3 - 6 units 12/17/20 08:00 12/26/20 10:36 Insulin Aspart (*Bkc) 100 Units
[2020-12-26 12:37] LABS: Glucose Point of Care 162 (65-105)
[2020-12-26 13:33] LABS: Hematocrit 25.1 % (42.0-52.0); Hemoglobin 8.3 g/dL (14.0-18.0)
--- NOTE | 2020-12-26 15:00 | CONS_ITS ---
DATE OF CONSULTATION: REASON FOR CONSULTATION: Bacteremia. HISTORY OF PRESENT ILLNESS: He has just turned 70 yesterday and was recently admitted on the evening of December 16 with shortness of breath, chest pain, and chronic sputum production. He is on home O2 at 3-1/2 L, more recently has been on 4 L. He has been receiving IV antibiotics. Since admission, blood cultures were positive and he remains on ampicillin, sulbactam, and vancomycin. His back pain is in the upper thoracic spine area, which is showing fracture at T5 and T6. The patient has been receiving radiation therapy, last year 2 separate courses. Over here, he did have some blood in his colostomy bag and colonoscopy showed no active bleeding. ALLERGIES: NONE KNOWN. PRESENT MEDICATIONS: Extensive list reviewed. No systemic immunosuppressants. Currently at home, he was listed as prednisone 10 mg daily. HABITS: Formerly alcohol to excess. Ex-smoker. FAMILY HISTORY: Not pertinent to his present illness. REVIEW OF SYSTEMS: Easy bruisability, chronic cough, abdominal distention, edema. A 14-point review otherwise negative. SOCIAL HISTORY: since 2013. Lives locally. [place] . Six siblings. No family at the bedside. PAST MEDICAL HISTORY: Cataract extraction on the left about 2 months ago without final improvement in symptoms. Also cholecystectomy, ileostomy for rectal cancer number of years ago, appendectomy, thrombocytopenia, pulmonary hypertension, RICHY, hyperlipidemia, gout, diabetes mellitus, well controlled, systolic heart failure, COPD, stage 3 chronic renal insufficiency, chronic AF. PHYSICAL EXAMINATION: GENERAL: Middle-aged male who appears his actual age. Weight is down. VITAL SIGNS: He has been afebrile since arrival, 86, 20, 93/67. SKIN: Multiple ecchymoses and tattoos. No rashes. Warm and dry. NODES: He has no cervical adenopathy nor supraclavicular. EENT: The conjunctivae are clear. Pupils equal, round. Dry mucous membranes. NECK: No masses, thyromegaly, or stridor. LUNGS: Coarse breath sounds with upper airway noise. Breath sounds are vesicular. Clear to percussion. CARDIAC: Regular rate and rhythm. No murmur or gallop. Soft S1, S2. ABDOMEN: Protuberant. Left lower quadrant colostomy with brown stool. No visible blood. He has normal bowel sounds. EXTREMITIES: No clubbing, cyanosis, edema. Well perfused. LABORATORY DATA: White count 13.2 today, has been in a similar range since arrival when it was originally 28, hemoglobin 7.3, platelets are 95,000, minimal left shift on differential. He has mild hyponatremia. BUN 31, creatinine 1.7 similar to prior, estimated GFR of 40 to 50. Accu-Cheks low 100s. His CRP on arrival 4.2, albumin is 2.5. His coronavirus assay on arrival was negative. RADIOLOGY: CT of the abdomen and pelvis, no acute changes. Postoperative changes. Small pleural effusions. Cardiomegaly. Left kidney cyst suspected. CT of chest showed enlarging right upper lobe mass, now 4 cm in size. Chest x-ray the same. His echocardiogram, multiple abnormalities, no evidence of infection. MICROBIOLOGY: From admission, 1 blood culture with Streptococcus gallolyticus, the other with a granulicatella and 2 strains of coagulase-negative Staph. Review of blood cultures done 3 days later, final no growth. ASSESSMENT: 1. Polymicrobial bacteremia. Suspect gastrointestinal source, though cannot exclude a respiratory source. He has had microbiologic cure and although his white count remains elevated, he has had clinical improvement as well. No abscesses nor other surgically approachable lesions are identified by symptoms, exam nor x-rays. 2. Coagulase-negative staph bacteremia, skin contaminant. 3. Lung cancer, on palliative
[2020-12-26 17:37] LABS: Glucose Point of Care 302 (65-105)
[2020-12-26] MEDS: INSULIN ASPART (*BKC) 100 UNITS/ML SUB-Q (17:50)
[2020-12-26 19:27] LABS: Hematocrit 26.8 % (42.0-52.0); Hemoglobin 8.5 g/dL (14.0-18.0)
[2020-12-26] MEDS: traZODone HCL 50 MG TABLET PO (20:02)
[2020-12-26 22:06] LABS: Glucose Point of Care 174 (65-105)
[2020-12-26 23:18] LABS: Hematocrit 24.4 % (42.0-52.0); Hemoglobin 7.7 g/dL (14.0-18.0)
[2020-12-27] VITALS (15 sets, daily range): BP systolic 111–114; BP diastolic 62–67; PULSE 57–114; RESP 16–20; TEMP 36.5–37.1; O2SAT 90–98
[2020-12-27] MEDS: IPRATROPIUM BR 0.02% INH SOLN 0.5 MG/2.5 ML VIAL INHALATION ×4 (02:29→20:16)
[2020-12-27] MEDS: AMOXICILLIN/CLAVULANATE K 500-125 MG TAB 1 TABLET PO ×3 (05:43→20:29)
[2020-12-27] MEDS: HYDROcodone/acetaminophen (*CRX) 5-325 MG TABLET 1 TAB PO ×4 (05:47→23:54)
[2020-12-27 06:01] LABS: Hematocrit 25.5 % (42.0-52.0); Immature Platelet Fraction Pct 8.9 % (0.9-11.2); Mean Corpuscular HGB Conc 31.4 g/dl (32-36); Mean Corpuscular Hemoglobin 33.3 pg (26-34); Mean Corpuscular Volume 106.3 fl (80-100); Mean Platelet Volume 11.8 fl (7.4-10.4); Platelet Count Result 115 k/mm3 (150-375); Red Cell Distribution Width 16.7 % (11.5-14.5); White Blood Count 13.6 K/mm3 (4.5-10.0)
[2020-12-27 06:17] LABS: Albumin Level 2.7 g/dL (3.5-5.1); Anion Gap 0 mmol/L (8-16); Blood Urea Nitrogen 36 mg/dL (9-20); Calcium 8.3 mg/dL (8.4-10.2); Carbon Dioxide 38 mmol/L (22-30); Chloride 98 mmol/L (98-107); Estimated CRCL calculation 39 ml/min; Estimated Glomerular Filt Rate 43; Glucose 137 mg/dL (75-110); Magnesium 1.8 mg/dL (1.6-2.3); Phosphorus 4.2 mg/dL (2.5-4.5); Potassium 4.4 mmol/L (3.4-5.0); Sodium 136 mmol/L (137-145)
[2020-12-27] MEDS: OMEGA 3 POLYUNSAT FATTY ACIDS 1 GM CAP PO ×4 (09:08→20:29)
[2020-12-27] MEDS: METOPROLOL SUCCINATE EXT REL 100 MG TABCR PO ×2 (09:08→20:29)
[2020-12-27] MEDS: FUROSEMIDE 40 MG TABLET PO (09:09)
[2020-12-27] MEDS: predniSONE 10 MG TABLET PO (09:09)
[2020-12-27] MEDS: guaiFENesin 12 HR 600 MG TABCR PO ×2 (09:09→20:29)
[2020-12-27] MEDS: ATORVASTATIN 40 MG TABLET PO (09:09)
[2020-12-27] MEDS: PANTOPRAZOLE SOD SESQUIHYDRATE 20 MG TAB PO (09:09)
[2020-12-27] MEDS: TAMSULOSIN HCL 0.4 MG CAPSULE PO (09:09)
[2020-12-27] MEDS: LIDOCAINE 5% PATCH 2 PATCH TRANSDERM (09:10)
[2020-12-27] MEDS: FLUTICASONE/UMECLIDIN/VILANTER 100-62.5-25 MCG ELLIPTA 1 PUFF INHALATION (09:32)
[2020-12-27] MEDS: allopurinoL 300 MG TABLET PO (10:48)
[2020-12-27] MEDS: ASCORBIC ACID 500 MG TABLET BY MOUTH (10:49)
--- NOTE | 2020-12-27 11:47 | WPDINFPN2 ---
Progress Note: A&P Assessment and Plan (1) Streptococcal bacteremia: Code(s): R78.81 - Bacteremia; B95.5 - Unspecified streptococcus as the cause of diseases classified elsewhere Status: Acute Assessment and Plan: 1. Polymicrobial bacteremia with infection, GI vs lung source, stable. Microbiologic cure 2. Lung cancer, on palliative therapy 3. Past rectal cancer REC Augmentin # 1 / 3 days. Ok discharge planning. No further eval needed at present. No suppressive antibiotics. Will see prn, thanks Subjective Date/time seen: 12/27/20 11:47 Interval history: feels a little better, no blood nor excessive ouput from colostomy Exam Narrative: Exam Narrative: afebrile Const: General: no acute distress Eyes: General: appearance normal, both eyes and all related structures Resp: Effort & Inspection: normal respiratory effort Auscultation: rales Cardio: Rate: regular rate Rhythm: regular rhythm Heart sounds: no murmurs GI: Inspection: non-distended GI Palp: Yes Soft to palpation, No Tenderness to palpation present (GI) and No Guarding due to palpation present (GI) Auscultation: normal bowel sounds Other: no masses Skin: General skin exam: normal color and no rashes or lesions noted Objective Data Vital Signs Vital Signs: Vital Signs - 24 hr 12/26/20 14:00 12/26/20 14:44 12/26/20 20:00 Temperature 36.2 C L Pulse Rate 93 87 Respiratory Rate 20 20 Blood Pressure 123/72 Pulse Oximetry 94 95 12/26/20 20:01 12/26/20 20:52 12/26/20 21:01 Temperature Pulse Rate 88 99 63 Respiratory Rate 20 20 Blood Pressure Pulse Oximetry 95 12/26/20 22:00 12/27/20 00:10 12/27/20 02:31 Temperature 36.9 C Pulse Rate 101 H 66 89 Respiratory Rate 20 20 20 Blood Pressure 97/68 L Pulse Oximetry 99 93 12/27/20 02:36 12/27/20 02:39 12/27/20 05:28 Temperature 36.5 C Pulse Rate 86 57 L 82 Respiratory Rate 20 16 18 Blood Pressure 112/67 Pulse Oximetry 90 94 12/27/20 08:00 12/27/20 09:33 12/27/20 09:42 Temperature Pulse Rate 100 91 100 Respiratory Rate 20 20 20 Blood Pressure Pulse Oximetry 96 96 Intake/Output Intake/Output: Intake & Output 12/24/20 12/25/20 12/26/20 12/27/20 23:59 23:59 23:59 23:59 Intake Total 2144 1940 2650 490 Output Total 1000 2250 1750 300 Balance 1144 -310 900 190 Meds/Results Medications: Active Medications Generic Name Dose Route Start Last Admin Trade Name Freq PRN Reason Stop Dose Admin Acetaminophen 650 mg 12/19/20 17:32 12/26/20 05:46 Acetaminophen 325 Mg Tablet PO 650 mg Q6H PRN Administration Mild Pain (1-5) Or Fever Hydrocodone Bitart/Acetaminophen 1 tab 12/19/20 17:32 12/27/20 11:05 Hydrocodone/Acetaminophen (*Crx) 5-325 Mg Tablet PO 1 tab Q6H PRN Administration Pain Rated 6-10 Allopurinol 300 mg 12/17/20 08:00 12/27/20 10:48 Allopurinol 300 Mg Tablet PO 300 mg DAILY@0800 COOKIE Administration Amoxicillin/Clavulanate Potassium 1 tablet 12/27/20 06:00 12/27/20 05:43 Amoxicillin/Clavulanate K 500-125 Mg Tab PO 12/29/20 22:01 1 tablet Q8HR COOKIE Administration Ascorbic Acid 500 mg 12/17/20 09:00 12/27/20 10:49 Ascorbic Acid 500 Mg Tablet BY MOUTH 500 mg DAILY COOKIE Administration Aspirin 325 mg 12/18/20 08:00 12/20/20 08:49 Aspirin 325 Mg Tablet PO 325 mg BritniuTh@0800 COOKIE Administration Atorvastatin Calcium 40 mg 12/17/20 09:00 12/27/20 09:09 Atorvastatin 40 Mg Tablet PO 40 mg DAILY COOKIE Administration Dextrose 12.5 gm 12/17/20 04:27 Dextrose 50% 25 Gm/50 Ml Syringe IV PUSH PRN PRN Hypoglycemia Protocol Diltiazem HCl 120 mg 12/17/20 09:00 12/27/20 09:09 Diltiazem Hcl Cd 120 Mg Cap.Sa.24h PO 120 mg DAILY COOKIE Administration Fish Oil 1 gm 12/17/20 09:00 12/27/20 09:08 [place] 3 Polyunsat Fatty Acids 1 Gm Cap PO 1 gm QID COOKIE Administration Fluticasone/Umeclidinium/Vilanterol 1 puff 12/17/20
[2020-12-27 12:04] LABS: Glucose Point of Care 158 (65-105)
--- NOTE | 2020-12-27 16:27 | PM.IMPN ---
Progress Note: A&P Assessment and Plan (1) Sepsis: Code(s): A41.9 - Sepsis, unspecified organism Status: Acute Assessment and Plan: Sepsis with septicemia on admission with lactic acidosis, leukocytosis with left shift and tachycardia. [place] related to the pneumonia and septicemia. BCx (2of2) positive for gram-positive cocci in chains in anaerobic bottle only; 1 set grew streptococcus gallolyticus, and 1 set grew granulecetella adiacens and CN Staph. Repeat blood cultures negative. Colonoscopy 12/21 adenomatous polyps only with no malignancy or high grade dysplasia. Echo no vegetations but with pulm HTN 64 and decreased RV function. Discussed with ID and vanco and Unasyn stopped 12/26 and changed to Augmentin through 12/29/20. White count about the same at 13K. No further workup recommended. Appreciate ID input. Spoke with dtr with patient permission. She worried about the low Hgb and stated that the patient normally gets blood transfusion to Hgb 12 at [facility]. She is also states patient dropped his saturation to the 70's and became tachycardic when trying to work with therapy (PT notes reviewed after the phone call and patient seen later in the afternoon on 12/26 and sat at the side of bed with note stating 'high HR' which truncated the therapy). Explained that we normally do not transfuse to higher hgb. She also states patient is much more congested when speaking with him on the phone. Kian is having a productive cough but no increase in his O2 requirement. Will check CXR to exclude other etiologies but suspect he is just recovering from the PNA. High HR with therapy not unexpected given that he is probably deconditioned. CXR reviewed and showing masslike density right suprahilar region, concerning for malignancy and a mixed diffuse interstitial and airspace infiltrates which may represent pneumonia or edema. Doubt edema given that his legs are dry and has been on Lasix since admission. BP soft and actually may be getting dry. Will follow for now. Suspect he is just recovering from the PNA. (2) Pneumonia: Qualifiers: Laterality: bilateral Lung location: lower lobe of lung Pneumonia type: due to unspecified organism Qualified Code(s): J18.9 - Pneumonia, unspecified organism Code(s): J18.9 - Pneumonia, unspecified organism Status: Acute Assessment and Plan: CTA showing no pulmonary emboli. Minimal airspace opacities bilateral lower lobes noted. Patient has chronic respiratory failure on home O2 at 3L at rest and 4L with activity and uses Trilogy at night. Patient is close to baseline. Continue antibiotics as above. Encouraged BiPAP use. (3) Malignant neoplasm of upper lobe, right bronchus or lung: Code(s): C34.11 - Malignant neoplasm of upper lobe, right bronchus or lung Status: Acute Assessment and Plan: CTA Chest showing right upper lobe 4.2 cm mass that has doubled in size since July. Patient has a medically inoperable early stage lung cancer reviewed he is not a candidate for surgery or even biopsy due to his severe COPD. He completed course of SBRT from 01/19-02/02/20 and again 09/08-09/15/20. Plans for PET scan in a few weeks. oncology seen and may want to pursue biopsy (4) Atrial fibrillation: Qualifiers: Atrial fibrillation type: unspecified Qualified Code(s): I48.91 - Unspecified atrial fibrillation Code(s): I48.91 - Unspecified atrial fibrillation Status: Acute Assessment and Plan: EKG showed atrial fibrillation with RVR. Patient was on tele and showing persistent AFib with HR mostly below 100 now. Continue Toprol and Cardizem. Watch BP. Not on termite control representative anticoagulation due to increased bleeding risk but does take ASA 3 times per week. (5) Type 2 diabetes mellitus with hyperglycemia: Code(s): E11.65 - Type 2 diabetes mellitus with hyperglycemia Status: Acute Assessment and Plan:
[2020-12-27] MEDS: INSULIN ASPART (*BKC) 100 UNITS/ML SUB-Q (17:30)
[2020-12-27 17:35] LABS: Glucose Point of Care 293 (65-105)
[2020-12-27] MEDS: traZODone HCL 50 MG TABLET PO (20:29)
[2020-12-27 22:15] LABS: Glucose Point of Care 128 (65-105)
[2020-12-28] VITALS (26 sets, daily range): BP systolic 85–121; BP diastolic 45–88; PULSE 76–120; RESP 16–26; TEMP 36.3–36.7; O2SAT 85–98
[2020-12-28] MEDS: IPRATROPIUM BR 0.02% INH SOLN 0.5 MG/2.5 ML VIAL INHALATION ×4 (02:09→21:23)
[2020-12-28] MEDS: AMOXICILLIN/CLAVULANATE K 500-125 MG TAB 1 TABLET PO ×3 (06:25→20:26)
[2020-12-28] MEDS: HYDROcodone/acetaminophen (*CRX) 5-325 MG TABLET 1 TAB PO ×3 (06:28→22:52)
[2020-12-28 06:40] LABS: Basophils Absolute Auto 0.1 K/mm3 (0.0-0.1); Basophils Percent Auto 0.4 % (0.2-1.2); Eosinophils Absolute Auto 0.1 K/mm3 (0-0.3); Eosinophils Percent Auto 0.6 % (0-4.4); Hematocrit 25.7 % (42.0-52.0); Hemoglobin 8.2 g/dL (14.0-18.0); Immature Granulocyte Absolute 0.64 K/mm3 (0.00-0.031); Immature Granulocyte Percent A 4.7 % (0-0.5); Lymphocytes Absolute Auto 0.28 K/mm3 (0.9-3.2); Mean Corpuscular HGB Conc 31.9 g/dl (32-36); Mean Corpuscular Hemoglobin 33.5 pg (26-34); Mean Corpuscular Volume 104.9 fl (80-100); Monocytes Absolute Auto 0.9 K/mm3 (0.1-0.6); Monocytes Percent Auto 6.4 % (2.6-8.5); Neutrophils Absolute Auto 11.8 K/mm3 (1.3-6.7); Neutrophils Percent Auto 85.9 % (45.5-73.1); Nucleated Red Blood Cells Absolute Auto 0.1 K/mm3 (0.0-0.012); Nucleated Red Blood Cells Perc 0.9 % (0.0-0.2); Platelet Count Result 103 k/mm3 (150-375); Red Blood Count 2.45 M/mm3 (4.6-6.20); Red Cell Distribution Width 17.1 % (11.5-14.5); White Blood Count 13.7 K/mm3 (4.5-10.0)
[2020-12-28 07:15] LABS: Anisocytosis 2+ (NORMAL); Hypochromasia 1+ (NORMAL); Platelet Estimate Decreased (Adequate); Poikilocytosis 1+ (NORMAL)
[2020-12-28 07:16] LABS: Ovalocytes 1+ (NORMAL)
[2020-12-28 07:35] LABS: Alanine Aminotransferase 36 U/L (4-50); Alkaline Phosphatase 73 U/L (38-126); Anion Gap 2 mmol/L (8-16); Aspartate Amino Transferase 27 U/L (17-59); Bilirubin,Total 0.8 mg/dL (0.2-1.3); Blood Urea Nitrogen 35 mg/dL (9-20); CRP 1.3 mg/dL (<1.0); Calcium 9.1 mg/dL (8.4-10.2); Carbon Dioxide 38 mmol/L (22-30); Chloride 96 mmol/L (98-107); Estimated CRCL calculation 39 ml/min; Estimated Glomerular Filt Rate 43; Glucose 146 mg/dL (75-110); Phosphorus 4.2 mg/dL (2.5-4.5); Potassium 4.3 mmol/L (3.4-5.0); Sodium 136 mmol/L (137-145)
[2020-12-28 08:38] LABS: Glucose Point of Care 120 (65-105)
[2020-12-28] MEDS: LIDOCAINE 5% PATCH 2 PATCH TRANSDERM (08:40)
--- NOTE | 2020-12-28 09:47 | WPDANESEPPF ---
Anes - Initial Pre Proc Eval Procedure: Operation Date: 12/21/20 11:15 Proposed Procedures p Colonoscopy - Seth Elizondo MD Operation Date: 12/28/20 12:45 Proposed Procedures p Esophagogastroduodenoscopy - Seth Elizondo MD Date/Time: 12/28/20 09:47 Surgeon: Maria Esther Trotter DO Pre Op Diagnosis: Pneumonia/afib with rvr/coronavirus PUI Patient Data Age: 70 Gender: M Height: 1.78 m Weight: 76.6 kg Last Vital Signs Temp 36.3 C L 12/28/20 05:57 Pulse 95 12/28/20 08:35 Resp 20 12/28/20 05:57 BP 96/54 L 12/28/20 08:35 Pulse Ox 93 12/28/20 05:57 Allergies Allergy/AdvReac Type Severity Reaction Status Date / Time No Known Allergies Allergy Verified 12/21/20 10:26 Home Medications Medication Instructions Recorded Confirmed Type allopurinol 300 mg tablet 300 mg PO DAILY 10/07/19 12/21/20 History blood-glucose meter #1 each 10/07/19 12/21/20 History ergocalciferol (vitamin D2) 1,250 50,000 unit PO USEASDIRECTD 10/07/19 12/21/20 History mcg (50,000 unit) capsule tamsulosin 0.4 mg capsule 0.4 mg PO DAILY 10/07/19 12/21/20 History liraglutide 0.6 mg/0.1 mL (18 mg/3 1.8 mg SUB-Q DAILY #18 ml 12/28/19 12/21/20 Rx mL) subcutaneous pen injector diltiazem HCl 120 mg 120 mg PO DAILY cap 05/25/20 12/21/20 History capsule,extended release 12 hr omeprazole magnesium 20 mg 20 mg PO DAILY #90 tablet 09/16/20 12/21/20 Rx tablet,delayed release metoprolol succinate 100 mg 100 mg PO BID #180 tablet 09/23/20 12/21/20 Rx tablet,extended release 24 hr pen needle, diabetic 29 gauge x See Rx Instructions .ROUTE 09/27/20 12/21/20 Rx 1/2 .COMPLEX #100 syringe blood sugar diagnostic #100 each 10/04/20 12/21/20 Rx atorvastatin 40 mg tablet 40 mg PO DAILY #90 tablet 10/07/20 12/21/20 Rx furosemide 40 mg tablet 40 mg PO QAM #90 tablet 11/11/20 12/21/20 Rx aspirin 325 mg PO QTUTHSU 12/16/20 12/21/20 History wwtrumqufnh-cdqocsquo-yqwnxpji 1 inh INHALATION DAILY 12/16/20 12/21/20 History [Trelegy Ellipta] omega 8-wrf-ovl-fish oil [Fish Oil] 1 cap PO QID 12/16/20 12/21/20 History sitagliptin [Januvia] 50 mg PO DAILY 12/17/20 12/21/20 History trazodone 50 mg PO HS 12/17/20 12/21/20 History ascorbic acid (vitamin C) 500 mg 500 mg PO DAILY #90 tablet 12/19/20 12/21/20 Rx tablet prednisone 10 mg tablet 10 mg PO DAILY #30 tablet 12/21/20 Rx Laboratory Tests 12/27/20 12/27/20 12/27/20 07:35 11:46 17:27 WBC RBC Hgb Hct MCV MCH MCHC RDW Plt Count MPV Immature Gran % (Auto) Neut % (Auto) Lymph % (Auto) [place] % (Auto) Eos % (Auto) Baso % (Auto) Lymph # (Auto) [place] # (Auto) Eos # (Auto) Baso # (Auto) Abs Immat Gran (auto) Absolute Neuts (auto) Absolute Nucleated RBC Nucleated RBC % Platelet Estimate Hypochromasia Poikilocytosis Anisocytosis Ovalocytes Sodium Potassium Chloride Carbon Dioxide Anion Gap BUN Creatinine Estim Creat Clear Calc Estimated GFR Glucose POC Capillary Glucose 128 mg/dl H mg/dl 158 mg/dl H mg/dl 293 mg/dl H mg/dl (65-105) (65-105) (65-105) Calcium Phosphorus Magnesium Total Bilirubin AST ALT Alkaline Phosphatase C-Reactive Protein Total Protein Albumin 12/28/20 12/28/20 12/28/20 05:59 05:59 08:35 WBC 13.7 K/mm3 H K/mm3 (4.5-10.0) RBC 2.45 M/mm3 L M/mm3 (4.6-6.20) Hgb 8.2 g/dL L g/dL (14.0-18.0) Hct
--- NOTE | 2020-12-28 10:26 | PCPTNOTE ---
Attempted therapy session, Pt refused treatment session. Pt stated I'm going down for a scope at 11:30am. I would rather wait for therapy until after the scope. Maybe this afternoon I will feel more up to it. Will continue with therapy Per POC.
--- NOTE | 2020-12-28 10:53 | PCNFU ---
Nutrition Follow-Up Complete: Inadequate Oral intake as related to cancer as evidenced by 20% weight loss reported. Goal: Meet estimated nutritional needs Patient continue to progress towards goal. We will continue current goal. Pt current nutrition is NPO. Last recorded weight is 76.6 kg,no new weight to report. Bowel Motility:+BM reported 12/26 Labs Reviewed:Cr 1.6,GFR 43,BUN 35,Cr 1.6,Na 136,Hct 25.7,Hgb 8.2 Meds Noted: Norvo,Cardizem, Mucinex,Toprol, Protonix Additional Notes: Nutrition follow up. Patient is currently NPO for EGD today. Overall oral intake has been 75-100% of a [facility] diet. Patient is also receiving Glucerna shakes BID providing an additional 220 kcals and 10 gms protein. Agree with diet orders. Monitoring: weight, labs, oral intake every 7 days.
[2020-12-28] MEDS: LACTATED RINGERS 1,000 ML 150 ML IV CONT (11:55)
[2020-12-28 11:57] LABS: Glucose Point of Care 141 (65-105)
--- NOTE | 2020-12-28 13:44 | SUR.PHASEII ---
Difficulty getting reading on pulse oximeter (finger probe and forehead). Pt does not appear to be in distress. Respiratory therapy here to give neb treatment as ordered by Dr. Stock Anesthesiology. Orders to transfer back to floor after neb treatment per Dr. Stock.
[2020-12-28 14:24] LABS: Glucose Point of Care 167 (65-105)
[2020-12-28] MEDS: guaiFENesin 12 HR 600 MG TABCR PO ×2 (14:36→20:27)
[2020-12-28] MEDS: ASCORBIC ACID 500 MG TABLET BY MOUTH (14:37)
[2020-12-28] MEDS: FLUTICASONE/UMECLIDIN/VILANTER 100-62.5-25 MCG ELLIPTA 1 PUFF INHALATION (14:37)
[2020-12-28] MEDS: PANTOPRAZOLE SOD SESQUIHYDRATE 20 MG TAB PO (14:37)
[2020-12-28] MEDS: predniSONE 10 MG TABLET PO (14:37)
[2020-12-28] MEDS: TAMSULOSIN HCL 0.4 MG CAPSULE PO (14:37)
[2020-12-28] MEDS: ATORVASTATIN 40 MG TABLET PO (14:37)
[2020-12-28] MEDS: allopurinoL 300 MG TABLET PO (14:37)
--- NOTE | 2020-12-28 14:44 | PCPTNOTE ---
Attempted to see patient for PT, however patient declined due to just getting back from procedure and reported he is too worn out from transfer back to bed.
--- NOTE | 2020-12-28 16:10 | PM.IMPN ---
Progress Note: A&P Assessment and Plan (1) Sepsis: Code(s): A41.9 - Sepsis, unspecified organism Status: Acute Assessment and Plan: Sepsis with septicemia on admission with lactic acidosis, leukocytosis with left shift and tachycardia. [place] related to the pneumonia and septicemia. BCx (2of2) positive for gram-positive cocci in chains in anaerobic bottle only; 1 set grew streptococcus gallolyticus, and 1 set grew granulecetella adiacens and CN Staph. Repeat blood cultures negative. Colonoscopy 12/21 adenomatous polyps only with no malignancy or high grade dysplasia. Echo no vegetations but with pulm HTN 64 and decreased RV function. Discussed with ID and vanco and Unasyn stopped 12/26 and changed to Augmentin through 12/29/20. White count about the same at 13K. No further workup recommended. Appreciate ID input. (2) Pneumonia: Qualifiers: Laterality: bilateral Lung location: lower lobe of lung Pneumonia type: due to unspecified organism Qualified Code(s): J18.9 - Pneumonia, unspecified organism Code(s): J18.9 - Pneumonia, unspecified organism Status: Acute Assessment and Plan: CTA 12/16 showing no pulmonary emboli but minimal airspace opacities bilateral lower lobes noted. Patient finishing up abx but not feeling well. CXR 12/27 showing mixed diffuse interstitial and airspace infiltrates which may represent pneumonia or edema; no evidence of fluid overload and he remans on Lasix orally. Consider pseudomonas PNA so will check sputum. Continue abx as above. (3) Malignant neoplasm of upper lobe, right bronchus or lung: Code(s): C34.11 - Malignant neoplasm of upper lobe, right bronchus or lung Status: Acute Assessment and Plan: CTA Chest 12/16 showing right upper lobe 4.2 cm mass that has doubled in size since July. Patient has a medically inoperable early stage lung cancer reviewed he is not a candidate for surgery or even biopsy due to his severe COPD. He completed course of SBRT from 01/19-02/02/20 and again 09/08-09/15/20. Plans for PET scan in a few weeks. Oncology has seen patient and may want to pursue biopsy. (4) Atrial fibrillation: Qualifiers: Atrial fibrillation type: unspecified Qualified Code(s): I48.91 - Unspecified atrial fibrillation Code(s): I48.91 - Unspecified atrial fibrillation Status: Acute Assessment and Plan: EKG showed atrial fibrillation with RVR. Patient was on tele and showing persistent AFib with HR mostly below 100 now. Continue Toprol and Cardizem. BP soft at times - watch BP. Not on long term acute care registered nurse anticoagulation due to increased bleeding risk but does take ASA 3 times per week. (5) Type 2 diabetes mellitus with hyperglycemia: Code(s): E11.65 - Type 2 diabetes mellitus with hyperglycemia Status: Acute Assessment and Plan: A1c 6.4. The patient's blood glucose was reviewed on /3 Glucose reasonable well controlled. Continue AccuCheks covering with sliding scale. Hypoglycemia protocol available as needed. Continue current medications. Monitor closely with increase in steroid dose. (6) Compression fracture: Status: Acute Assessment and Plan: Patient developed back pain about 3 weeks ago. No trauma. CTA chest showing new compression fractures of the T5 and T6 vertebral bodies. Increase activity as tolerated. Still weak and may need placement. Encouraged compliance with PT/OT. CC evaluating. Add heating pad.. Continue [place] for pain. Continue lidocaine patches. (7) DVT prophylaxis: Code(s): Z29.9 - Encounter for prophylactic measures, unspecified Status: Acute Assessment and Plan: Mechanical with GI bleed (8) Lower GI bleed: Code(s): K92.2 - Gastrointestinal hemorrhage, unspecified Status: Acute Assessment and Plan: Hemoglobin dropped from 14 to 7.7 over the course of hospitalization. Did have blood in
[2020-12-28] MEDS: OMEGA 3 POLYUNSAT FATTY ACIDS 1 GM CAP PO ×2 (16:34→20:26)
[2020-12-28] MEDS: FUROSEMIDE 40 MG TABLET PO (16:35)
[2020-12-28] MEDS: methylPREDNISolone SOD SUCC 125 MG VIAL 80 MG IV PUSH (16:52)
[2020-12-28 17:42] LABS: Glucose Point of Care 220 (65-105)
[2020-12-28] MEDS: INSULIN ASPART (*BKC) 100 UNITS/ML SUB-Q (17:44)
[2020-12-28] MEDS: ACETAMINOPHEN 325 MG TABLET 650 MG PO (20:24)
[2020-12-28] MEDS: METOPROLOL SUCCINATE EXT REL 100 MG TABCR PO (20:26)
[2020-12-28] MEDS: traZODone HCL 50 MG TABLET PO (20:27)
[2020-12-28 21:33] LABS: Glucose Point of Care 278 (65-105)
[2020-12-29] VITALS (20 sets, daily range): BP systolic 99–120; BP diastolic 54–65; PULSE 63–103; RESP 15–24; TEMP 36.2–36.7; O2SAT 56–100
[2020-12-29] MEDS: IPRATROPIUM BR 0.02% INH SOLN 0.5 MG/2.5 ML VIAL INHALATION ×4 (03:08→21:15)
--- NOTE | 2020-12-29 03:27 | PM.EVENT ---
Event Note Event Note Event Note: Rapid Response Note Rapid Response was called secondary to low oxygen saturations. This is a 70 year old male who is being treated for sepsis, pneumonia, and COPD. Tonight the patient's sats dropped down to the mid 50s. On my arrival to bedside the patient's pulse ox saturations have recovered after he was turned up to 15L/min of high flow oxygen via NC. He is currently saturating 97%. The patient denies any worsening shortness of breath or chest discomfort. We will administer a bronchodilator breathing treatment. Check CXR this morning. Continuous pulse oximetry. I will reassess as needed tonight.
[2020-12-29] MEDS: AMOXICILLIN/CLAVULANATE K 500-125 MG TAB 1 TABLET PO ×3 (05:03→21:07)
[2020-12-29] MEDS: HYDROcodone/acetaminophen (*CRX) 5-325 MG TABLET 1 TAB PO ×4 (05:03→22:20)
[2020-12-29 05:07] LABS: Alveolar/Arterial O2 Gradient 431.7 mmHg; Base Excess ABG 7.2 mEq/l (+/-2.0); Device HIGH FLOW NASAL CANN; Fractional Inspired Oxygen 80 %; Modified Allen's Test Pass; Oxygen Content ABG 11.7 %vol (16.0-22.0); Oxyhemoglobin 94.8 % THb (90.0-100.0); PCO2 ABG 47.6 mmHg (35.0-45.0); PO2 ABG 88.7 mmHg (80.0-100.0); PO2 FiO2 Ratio Arterial Blood 1.11 %; Site Drawn RIGHT RADIAL; Total Hemoglobin 8.7 g/dL (12.0-18.0); pH ABG 7.446 (7.350-7.450)
[2020-12-29 06:17] LABS: Hematocrit 26.2 % (42.0-52.0); Hemoglobin 8.2 g/dL (14.0-18.0); Immature Platelet Fraction Pct 8.8 % (0.9-11.2); Mean Corpuscular HGB Conc 31.3 g/dl (32-36); Mean Corpuscular Hemoglobin 33.7 pg (26-34); Mean Corpuscular Volume 107.8 fl (80-100); Mean Platelet Volume 11.9 fl (7.4-10.4); Platelet Count Result 127 k/mm3 (150-375); Red Blood Count 2.43 M/mm3 (4.6-6.20); Red Cell Distribution Width 17.7 % (11.5-14.5); White Blood Count 11.7 K/mm3 (4.5-10.0)
[2020-12-29 06:28] LABS: Albumin Level 2.9 g/dL (3.5-5.1); Anion Gap 1 mmol/L (8-16); Blood Urea Nitrogen 39 mg/dL (9-20); Calcium 8.5 mg/dL (8.4-10.2); Carbon Dioxide 38 mmol/L (22-30); Chloride 92 mmol/L (98-107); Estimated CRCL calculation 33 ml/min; Estimated Glomerular Filt Rate 35; Glucose 304 mg/dL (75-110); Magnesium 2.3 mg/dL (1.6-2.3); Potassium 4.7 mmol/L (3.4-5.0); Sodium 131 mmol/L (137-145)
[2020-12-29 06:35] LABS: NT Pro B Type Natriuretic Pept 2310 PG/ML (5-100)
[2020-12-29] MEDS: FLUTICASONE/UMECLIDIN/VILANTER 100-62.5-25 MCG ELLIPTA 1 PUFF INHALATION (07:48)
[2020-12-29 08:39] LABS: Glucose Point of Care 261 (65-105)
--- NOTE | 2020-12-29 08:43 | PM.IMPN ---
Progress Note: A&P Assessment and Plan (1) Sepsis: Code(s): A41.9 - Sepsis, unspecified organism Status: Acute Assessment and Plan: Sepsis with septicemia on admission with lactic acidosis, leukocytosis with left shift and tachycardia. [place] related to the pneumonia and septicemia. BCx (2of2) positive for gram-positive cocci in chains in anaerobic bottle only; 1 set grew Streptococcus gallolyticus, and 1 set grew Granulicatella adiacens and CN Staph. Repeat blood cultures negative. Colonoscopy 12/21 with adenomatous polyps only with no malignancy or high grade dysplasia. Echo no vegetations but with pulm HTN 64 and decreased RV function. Discussed with ID and vanco and Unasyn stopped 12/26 and changed to Augmentin through 12/29/20. White count better at 11.7K. No further workup recommended. Appreciate ID input. Spoke with nurse last evening. Nurse called to inform me that the patient's daughter called in wanting to talk to somebody about hospice for the patient. The patient was not aware of this. I did not speak to the daughter directly. Spoke with patient this morning and he is not inclined to do hospice at this time. He will speak with his daughter and let us know how he wants to proceed. (2) Pneumonia: Qualifiers: Laterality: bilateral Lung location: lower lobe of lung Pneumonia type: due to unspecified organism Qualified Code(s): J18.9 - Pneumonia, unspecified organism Code(s): J18.9 - Pneumonia, unspecified organism Status: Acute Assessment and Plan: CTA 12/16 showing no pulmonary emboli but minimal airspace opacities bilateral lower lobes noted. Patient finishing up abx but not feeling well. CXR 12/27 showing mixed diffuse interstitial and airspace infiltrates which may represent pneumonia or edema; no evidence of fluid overload and he remans on Lasix orally (which will hold). Consider pseudomonas PNA so will check sputum. Continue abx as above. BNP noted but doubt CHF exacerbation. (3) Acute on chronic renal failure: Code(s): N17.9 - Acute kidney failure, unspecified; N18.9 - Chronic kidney disease, unspecified Status: Acute Assessment and Plan: Cr 1.9 today. Baseline mostly 1.4-1.7. Could be mild VICKEY from ATN related to the hypoxia. Follow renal function. James hold Lasix for now since consider also dehydration. (4) Malignant neoplasm of upper lobe, right bronchus or lung: Code(s): C34.11 - Malignant neoplasm of upper lobe, right bronchus or lung Status: Acute Assessment and Plan: CTA Chest 12/16 showing right upper lobe 4.2 cm mass that has doubled in size since July. Patient has a medically inoperable early stage lung cancer reviewed he is not a candidate for surgery or even biopsy due to his severe COPD. He completed course of SBRT from 01/19-02/02/20 and again 09/08-09/15/20. Plans for PET scan in a few weeks. Oncology has seen patient and may want to pursue biopsy. (5) Atrial fibrillation: Qualifiers: Atrial fibrillation type: unspecified Qualified Code(s): I48.91 - Unspecified atrial fibrillation Code(s): I48.91 - Unspecified atrial fibrillation Status: Acute Assessment and Plan: EKG showed atrial fibrillation with RVR. Patient was on tele and showing persistent AFib with HR mostly below 100 now. Continue Toprol and Cardizem. BP soft at times - watch BP. Not on senior living anticoagulation due to increased bleeding risk but does take ASA 3 times per week. (6) Type 2 diabetes mellitus with hyperglycemia: Code(s): E11.65 - Type 2 diabetes mellitus with hyperglycemia Status: Acute Assessment and Plan: A1c 6.4. The patient's blood glucose was reviewed on 12/29 Glucose higher related to the steroids. Continue AccuCheks covering with sliding scale. Hypoglycemia protocol available as needed. Continue current medications. Monitor closely with increase in steroid dose.
[2020-12-29] MEDS: INSULIN ASPART (*BKC) 100 UNITS/ML SUB-Q ×4 (09:49→22:20)
[2020-12-29] MEDS: TAMSULOSIN HCL 0.4 MG CAPSULE PO (10:11)
[2020-12-29] MEDS: ASCORBIC ACID 500 MG TABLET BY MOUTH (10:12)
[2020-12-29] MEDS: guaiFENesin 12 HR 600 MG TABCR PO ×2 (10:12→21:07)
[2020-12-29] MEDS: PANTOPRAZOLE SOD SESQUIHYDRATE 20 MG TAB PO (10:12)
[2020-12-29] MEDS: METOPROLOL SUCCINATE EXT REL 100 MG TABCR PO ×2 (10:12→21:07)
[2020-12-29] MEDS: ATORVASTATIN 40 MG TABLET PO (10:12)
[2020-12-29] MEDS: LIDOCAINE 5% PATCH 2 PATCH TRANSDERM (10:12)
[2020-12-29] MEDS: OMEGA 3 POLYUNSAT FATTY ACIDS 1 GM CAP PO ×4 (10:12→21:07)
[2020-12-29] MEDS: allopurinoL 300 MG TABLET PO (10:13)
[2020-12-29] MEDS: ASPIRIN 325 MG TABLET PO (10:13)
[2020-12-29] MEDS: predniSONE 20 MG TABLET 40 MG PO (10:13)
--- NOTE | 2020-12-29 10:16 | PM.CNPUL ---
Assessment and Plan Assessment and plan (1) Pulmonary nodule: Code(s): R91.1 - Solitary pulmonary nodule Status: Acute Assessment and Plan: Patient with a right upper lobe nodule that was not biopsied given the patient's severe panlobular emphysema. This is presumed cancer and he has undergone 2 courses of radiation therapy. Repeat CT scan on this admission from 12/16/2020 compared to 08/08/2020 demonstrate that the nodule has increased in size from 2.1 cm to 4.2 x 4.1 cm. This likely represents progression of his lung cancer. He was scheduled to have a PET scan last week but he was admitted to the hospital and that will need to be done in the future. Patient to follow-up with oncology. (2) Chronic obstructive pulmonary disease: Qualifiers: COPD type: unspecified COPD Qualified Code(s): J44.9 - Chronic obstructive pulmonary disease, unspecified Code(s): J44.9 - Chronic obstructive pulmonary disease, unspecified Status: Acute Assessment and Plan: COPD with chronic hypercarbic respiratory failure on a trilogy noninvasive ventilator at night, 3.5 L oxygen at rest and at night and 4-5 L oxygen with ambulation, pulmonary hypertension with an echocardiogram on August 28, 2018 with an RVSP of 69 presented with a possible pneumonia and COPD exacerbation. Today patient states that he is near his baseline regarding his cough, phlegm production and wheezing. Patient does state that he is much worse regarding his dyspnea on exertion. Regarding the etiology of this worsening dyspnea on exertion I do not think that he has an active pneumonia causing this dyspnea, he is being actively treated for a COPD exacerbation with steroids bronchodilators and finishing antibiotics, he also appears to have recurrence of his right upper lobe lung cancer. He may also be severely deconditioned as he has been lying in bed now since admission on December 16, 2020. His white blood cell count is 11 0.7 1000, he is afebrile and his chest x-ray demonstrates a right upper lobe mass but no focal infiltrates. Patient is scheduled to finish Augmentin today. Patient is currently on prednisone 40 q.day, trilogy inhaler, leave albuterol and ipratropium nebulizers Q 6. Will continue this regimen for now. Will re-evaluate tomorrow and if he is stable will consider decreasing his dose of prednisone. Agree with aggressive physical therapy and occupational therapy at this time. Patient told me that he wishes to go home as he has 5 daughters that can care for him. I told him I would recommend a 2 week rehabilitation stay as currently he cannot walk. He told me he would rather use a wheelchair. (3) Chronic respiratory failure with hypoxia and hypercapnia: Code(s): J96.11 - Chronic respiratory failure with hypoxia; J96.12 - Chronic respiratory failure with hypercapnia Status: Acute Assessment and Plan: Patient is currently on hospital auto Pap and states the machine is working fine for him. Of note last night he took off his BiPAP and had desaturate is a shins with a blood gas of 7.47/48/89 on 10 L high flow. I have instructed the patient to have his family bring in his home noninvasive ventilator for use in the hospital. History of Present Illness History of Present Illness Consult date: 12/29/20 Requesting physician: Jose Ozuna MD Reason for consult: COPD Chief complaint: Pneumonia/afib with rvr/coronavirus PUI Narrative: Patient is a 69-year-old man with a history of COPD with chronic hypercarbic respiratory failure on a trilogy noninvasive ventilator at night, 3.5 L oxygen at rest and at night and 4-5 L oxygen with ambulation, pulmonary hypertension with an echocardiogram on August 28, 2018 with an RVSP of 69, obstructive sleep apnea, presumed lung cancer with a mass in the right upper lobe which was not biopsied given the severity of his COPD. Patient received radiation therapy from [id number] and from 1
[2020-12-29 12:18] LABS: Glucose Point of Care 233 (65-105)
[2020-12-29 17:53] LABS: Glucose Point of Care 277 (65-105)
[2020-12-29] MEDS: traZODone HCL 50 MG TABLET PO (21:07)
[2020-12-29 21:16] LABS: Glucose Point of Care 297 (65-105)
[2020-12-30] VITALS (13 sets, daily range): BP systolic 108–130; BP diastolic 57–65; PULSE 72–97; RESP 17–21; TEMP 36.2–37; O2SAT 90–96
[2020-12-30 00:19] LABS: Glucose Point of Care 287 (65-105)
[2020-12-30] MEDS: IPRATROPIUM BR 0.02% INH SOLN 0.5 MG/2.5 ML VIAL INHALATION ×4 (02:17→18:27)
[2020-12-30] MEDS: HYDROcodone/acetaminophen (*CRX) 5-325 MG TABLET 1 TAB PO ×4 (04:47→22:45)
[2020-12-30 06:07] LABS: Glucose Point of Care 259 (65-105)
[2020-12-30 06:10] LABS: Basophils Percent Auto 0.1 % (0.2-1.2); Hematocrit 24.1 % (42.0-52.0); Hemoglobin 7.5 g/dL (14.0-18.0); Immature Granulocyte Absolute 0.23 K/mm3 (0.00-0.031); Immature Granulocyte Percent A 1.7 % (0-0.5); Lymphocytes Absolute Auto 0.26 K/mm3 (0.9-3.2); Mean Corpuscular HGB Conc 31.1 g/dl (32-36); Mean Corpuscular Hemoglobin 32.8 pg (26-34); Mean Corpuscular Volume 105.2 fl (80-100); Mean Platelet Volume 11.1 fl (7.4-10.4); Monocytes Percent Auto 7.2 % (2.6-8.5); Neutrophils Absolute Auto 11.9 K/mm3 (1.3-6.7); Nucleated Red Blood Cells Perc 0.3 % (0.0-0.2); Platelet Count Result 119 k/mm3 (150-375); Red Blood Count 2.29 M/mm3 (4.6-6.20); Red Cell Distribution Width 17.6 % (11.5-14.5); White Blood Count 13.3 K/mm3 (4.5-10.0)
[2020-12-30 06:27] LABS: Potassium 4.8 mmol/L (3.4-5.0)
[2020-12-30 06:30] LABS: Albumin Level 2.9 g/dL (3.5-5.1); Anion Gap 1 mmol/L (8-16); Blood Urea Nitrogen 50 mg/dL (9-20); Calcium 8.6 mg/dL (8.4-10.2); Carbon Dioxide 35 mmol/L (22-30); Chloride 95 mmol/L (98-107); Estimated CRCL calculation 37 ml/min; Estimated Glomerular Filt Rate 40; Glucose 254 mg/dL (75-110); Magnesium 2.3 mg/dL (1.6-2.3); Phosphorus 4.6 mg/dL (2.5-4.5); Sodium 131 mmol/L (137-145)
[2020-12-30 06:49] LABS: Anisocytosis 1+ (NORMAL); Platelet Estimate Adequate (Adequate); Poikilocytosis 1+ (NORMAL)
[2020-12-30 06:50] LABS: Hypochromasia 1+ (NORMAL); Ovalocytes 1+ (NORMAL); Target Cells 1+ (NORMAL)
[2020-12-30 06:51] LABS: Acanthocytes 1+ (NORMAL)
[2020-12-30 08:03] LABS: Glucose Point of Care 240 (65-105)
[2020-12-30] MEDS: FLUTICASONE/UMECLIDIN/VILANTER 100-62.5-25 MCG ELLIPTA 1 PUFF INHALATION (08:05)
[2020-12-30] MEDS: INSULIN ASPART (*BKC) 100 UNITS/ML SUB-Q ×3 (09:13→16:50)
[2020-12-30] MEDS: LIDOCAINE 5% PATCH 2 PATCH TRANSDERM (09:14)
[2020-12-30] MEDS: ASCORBIC ACID 500 MG TABLET BY MOUTH (09:15)
[2020-12-30] MEDS: allopurinoL 300 MG TABLET PO (09:15)
[2020-12-30] MEDS: OMEGA 3 POLYUNSAT FATTY ACIDS 1 GM CAP PO ×4 (09:16→20:33)
[2020-12-30] MEDS: ATORVASTATIN 40 MG TABLET PO (09:16)
[2020-12-30] MEDS: METOPROLOL SUCCINATE EXT REL 100 MG TABCR PO ×2 (09:17→20:33)
[2020-12-30] MEDS: TAMSULOSIN HCL 0.4 MG CAPSULE PO (09:17)
[2020-12-30] MEDS: PANTOPRAZOLE SOD SESQUIHYDRATE 20 MG TAB PO (09:17)
[2020-12-30] MEDS: guaiFENesin 12 HR 600 MG TABCR PO ×2 (09:19→20:34)
[2020-12-30] MEDS: predniSONE 20 MG TABLET PO (09:20)
--- NOTE | 2020-12-30 11:14 | PM.PNPUL ---
Progress Note: A&P Assessment and Plan (1) Pulmonary nodule: Code(s): R91.1 - Solitary pulmonary nodule Status: Acute Assessment and Plan: Patient with a right upper lobe nodule that was not biopsied given the patient's severe panlobular emphysema. This is presumed cancer and he has undergone 2 courses of radiation therapy. Repeat CT scan on this admission from 12/16/2020 compared to 08/08/2020 demonstrate that the nodule has increased in size from 2.1 cm to 4.2 x 4.1 cm. This likely represents progression of his lung cancer. He was scheduled to have a PET scan last week but he was admitted to the hospital and that will need to be done in the future. Patient to follow-up with oncology. (2) Chronic obstructive pulmonary disease: Qualifiers: COPD type: unspecified COPD Qualified Code(s): J44.9 - Chronic obstructive pulmonary disease, unspecified Code(s): J44.9 - Chronic obstructive pulmonary disease, unspecified Status: Acute Assessment and Plan: 12/29 COPD with chronic hypercarbic respiratory failure on a trilogy noninvasive ventilator at night, 3.5 L oxygen at rest and at night and 4-5 L oxygen with ambulation, pulmonary hypertension with an echocardiogram on August 28, 2018 with an RVSP of 69 presented with a possible pneumonia and COPD exacerbation. Today patient states that he is near his baseline regarding his cough, phlegm production and wheezing. Patient does state that he is much worse regarding his dyspnea on exertion. Regarding the etiology of this worsening dyspnea on exertion I do not think that he has an active pneumonia causing this dyspnea, he is being actively treated for a COPD exacerbation with steroids bronchodilators and finishing antibiotics, he also appears to have recurrence of his right upper lobe lung cancer. He may also be severely deconditioned as he has been lying in bed now since admission on December 16, 2020. His white blood cell count is 11 0.7 1000, he is afebrile and his chest x-ray demonstrates a right upper lobe mass but no focal infiltrates. Patient is scheduled to finish Augmentin today. Agree with aggressive physical therapy and occupational therapy at this time. Patient told me that he wishes to go home as he has 5 daughters that can care for him. I told him I would recommend a 2 week rehabilitation stay as currently he cannot walk. He told me he would rather use a wheelchair. 12/29 Patient is currently on prednisone 40 q.day, trilogy inhaler, levalbuterol and ipratropium nebulizers Q 6. Will continue this regimen for now. Will re-evaluate tomorrow and if he is stable will consider decreasing his dose of prednisone. 12/30 Stable, decreased prednisone to 20 today. Continue trelegy inhaler and levalbuterol and ipratroprium for now. (3) Chronic respiratory failure with hypoxia and hypercapnia: Code(s): J96.11 - Chronic respiratory failure with hypoxia; J96.12 - Chronic respiratory failure with hypercapnia Status: Acute Assessment and Plan: Patient refused hospital BIPAP until 12/27 and was then placed on Vauto mode. Most recent download from clinic notes from 07/15/2020-11/01/2020. Usage greater than or equal to 4 hours was 41.8% of nights. Average use (days used) was 4 hours and 22 minutes. Average EPAP was approximately 10-11 an average IPAP was approximately 20-21, average TV 624, average minute volume9-10 liters. 12/29 Patient is currently on hospital auto Pap and states the machine is working fine for him. Of note last night he took off his BiPAP and had desaturate is a shins with a blood gas of 7.47/48/89 on 10 L high flow. I have instructed the patient to have his family bring in his home noninvasive ventilator for use in the hospital. 12/30 Patient Wore hospital VAuto mode last night with EPAP min 5, Insp max 15, PSV 5 and 40% with neoontaebta25-75%. These setting are comfortable for patient so will continue. Will have him bring in his home
[2020-12-30 12:02] LABS: Glucose Point of Care 222 (65-105)
[2020-12-30 16:50] LABS: Glucose Point of Care 239 (65-105)
--- NOTE | 2020-12-30 17:05 | WPDPN ---
Progress Note: A&P Assessment and Plan (1) Sepsis: Code(s): A41.9 - Sepsis, unspecified organism Status: Acute Assessment and Plan: Sepsis with septicemia on admission with lactic acidosis, leukocytosis with left shift and tachycardia. [place] related to the pneumonia and septicemia. BCx drawn 12/16/20 positive for gram-positive cocci in chains in anaerobic bottle only; 1 set grew Streptococcus gallolyticus, and 1 set grew Granulicatella adiacens and CN Staph. Abx changed to Unasyn on 12/18; Vanco was continued. Repeat blood cultures on 12/19 negative. Colonoscopy 12/21 with adenomatous polyps only with no malignancy or high grade dysplasia. Echo no vegetations but with pulm HTN 64 and decreased RV function. Discussed with ID and vanco and Unasyn stopped 12/26 and changed to Augmentin through 12/29/20. White count up to 13K but steroids increased. No further workup recommended. Appreciate ID input. (2) Pneumonia: Qualifiers: Laterality: bilateral Lung location: lower lobe of lung Pneumonia type: due to unspecified organism Qualified Code(s): J18.9 - Pneumonia, unspecified organism Code(s): J18.9 - Pneumonia, unspecified organism Status: Acute Assessment and Plan: CTA 12/16 showing no pulmonary emboli but minimal airspace opacities bilateral lower lobes noted. Patient completed abx yesterday; he is feeling better today. CXR 12/29 showing patchy primarily bilateral lower lung zone infiltrates and/or atelectasis ; no evidence of fluid overload and he remans on Lasix orally (which is currently on hold). Consider pseudomonas PNA; sputum cx sent. BNP noted but doubt CHF exacerbation. BP still soft at times and Cr higher yesterday so will continue to hold Lasix for now (3) Acute on chronic renal failure: Code(s): N17.9 - Acute kidney failure, unspecified; N18.9 - Chronic kidney disease, unspecified Status: Acute Assessment and Plan: Cr 1.9 yesterday but back down to 1.7 today. Baseline mostly 1.4-1.7. Could be mild VICKEY from [facility]N related to the hypoxia or maybe becoming more dehydrated. Follow renal function. Continue to hold Lasix for now. (4) Malignant neoplasm of upper lobe, right bronchus or lung: Code(s): C34.11 - Malignant neoplasm of upper lobe, right bronchus or lung Status: Acute Assessment and Plan: CTA Chest 12/16 showing right upper lobe 4.2 cm mass that has doubled in size since July. Patient has a medically inoperable early stage lung cancer reviewed he is not a candidate for surgery or even biopsy due to his severe COPD. He completed course of SBRT from 01/19-02/02/20 and again 09/08-09/15/20. Plans for PET scan in a few weeks. Oncology has seen patient and appreciate their input (5) Atrial fibrillation: Qualifiers: Atrial fibrillation type: unspecified Qualified Code(s): I48.91 - Unspecified atrial fibrillation Code(s): I48.91 - Unspecified atrial fibrillation Status: Acute Assessment and Plan: EKG showed atrial fibrillation with RVR. Patient was on tele and showing persistent AFib with HR mostly below 100 now. Continue Toprol and Cardizem. BP soft at times - watch BP. Not on fci anticoagulation due to increased bleeding risk but does take ASA 3 times per week. (6) Type 2 diabetes mellitus with hyperglycemia: Code(s): E11.65 - Type 2 diabetes mellitus with hyperglycemia Status: Acute Assessment and Plan: A1c 6.4. The patient's blood glucose was reviewed on 12/30 Glucose higher related to the steroids. Continue AccuCheks covering with sliding scale. Hypoglycemia protocol available as needed. Continue current medications. Continue to monitor for now since steroid dose decreased. (7) Compression fracture: Status: Acute Assessment and Plan: Patient developed back pain about 3 weeks ago. No trauma. CTA chest showing new compression fractures of th
[2020-12-30] MEDS: traZODone HCL 50 MG TABLET PO (20:33)
[2020-12-30 21:24] LABS: Glucose Point of Care 279 (65-105)
[2020-12-31] VITALS (17 sets, daily range): BP systolic 99–115; BP diastolic 51–85; PULSE 61–114; RESP 18–20; TEMP 36.4–36.9; O2SAT 93–100
[2020-12-31] MEDS: IPRATROPIUM BR 0.02% INH SOLN 0.5 MG/2.5 ML VIAL INHALATION ×4 (02:12→20:54)
[2020-12-31] MEDS: HYDROcodone/acetaminophen (*CRX) 5-325 MG TABLET 1 TAB PO ×4 (05:07→23:33)
[2020-12-31 07:44] LABS: Glucose Point of Care 229 (65-105)
[2020-12-31 07:46] LABS: Hematocrit 24.9 % (42.0-52.0); Hemoglobin 7.6 g/dL (14.0-18.0); Mean Corpuscular HGB Conc 30.5 g/dl (32-36); Mean Corpuscular Hemoglobin 32.8 pg (26-34); Mean Corpuscular Volume 107.3 fl (80-100); Mean Platelet Volume 11.5 fl (7.4-10.4); Platelet Count Result 121 k/mm3 (150-375); Red Blood Count 2.32 M/mm3 (4.6-6.20); Red Cell Distribution Width 18.3 % (11.5-14.5); White Blood Count 12.7 K/mm3 (4.5-10.0)
[2020-12-31 07:59] LABS: Alanine Aminotransferase 25 U/L (4-50); Albumin Level 2.8 g/dL (3.5-5.1); Alkaline Phosphatase 69 U/L (38-126); Anion Gap 1 mmol/L (8-16); Aspartate Amino Transferase 24 U/L (17-59); Bilirubin,Total 0.5 mg/dL (0.2-1.3); Blood Urea Nitrogen 48 mg/dL (9-20); Calcium 8.1 mg/dL (8.4-10.2); Carbon Dioxide 36 mmol/L (22-30); Chloride 97 mmol/L (98-107); Estimated CRCL calculation 41 ml/min; Estimated Glomerular Filt Rate 46; Glucose 216 mg/dL (75-110); Potassium 4.9 mmol/L (3.4-5.0); Sodium 134 mmol/L (137-145)
[2020-12-31] MEDS: allopurinoL 300 MG TABLET PO (08:05)
[2020-12-31] MEDS: OMEGA 3 POLYUNSAT FATTY ACIDS 1 GM CAP PO ×4 (08:06→21:03)
[2020-12-31] MEDS: guaiFENesin 12 HR 600 MG TABCR PO ×2 (08:06→21:03)
[2020-12-31] MEDS: predniSONE 10 MG TABLET PO (08:06)
[2020-12-31] MEDS: ATORVASTATIN 40 MG TABLET PO (08:07)
[2020-12-31] MEDS: TAMSULOSIN HCL 0.4 MG CAPSULE PO (08:07)
[2020-12-31] MEDS: ASCORBIC ACID 500 MG TABLET BY MOUTH (08:07)
[2020-12-31] MEDS: PANTOPRAZOLE SOD SESQUIHYDRATE 20 MG TAB PO (08:08)
[2020-12-31] MEDS: METOPROLOL SUCCINATE EXT REL 100 MG TABCR PO ×2 (08:08→21:03)
[2020-12-31] MEDS: LIDOCAINE 5% PATCH 2 PATCH TRANSDERM (08:09)
[2020-12-31] MEDS: FLUTICASONE/UMECLIDIN/VILANTER 100-62.5-25 MCG ELLIPTA 1 PUFF INHALATION (08:12)
[2020-12-31] MEDS: INSULIN ASPART (*BKC) 100 UNITS/ML SUB-Q ×2 (09:01→17:52)
--- NOTE | 2020-12-31 11:11 | PM.IMPN ---
Progress Note: A&P Assessment and Plan (1) Sepsis: Code(s): A41.9 - Sepsis, unspecified organism Status: Acute Assessment and Plan: Sepsis with septicemia on admission with lactic acidosis, leukocytosis with left shift and tachycardia. [place] related to the pneumonia and septicemia. BCx drawn 12/16/20 positive for gram-positive cocci in chains in anaerobic bottle only; 1 set grew Streptococcus gallolyticus, and 1 set grew Granulicatella adiacens and CN Staph. Abx changed to Unasyn on 12/18; Vanco was continued. Repeat blood cultures on 12/19 negative. Colonoscopy 12/21 with adenomatous polyps only with no malignancy or high grade dysplasia. Echo no vegetations but with pulm HTN 64 and decreased RV function. Discussed with ID and vanco and Unasyn stopped 12/26 and changed to Augmentin with last dose 12/29/20. White count up to 13K but steroids increased. No further workup recommended. Appreciate ID input. (2) Pneumonia: Qualifiers: Laterality: bilateral Lung location: lower lobe of lung Pneumonia type: due to unspecified organism Qualified Code(s): J18.9 - Pneumonia, unspecified organism Code(s): J18.9 - Pneumonia, unspecified organism Status: Acute Assessment and Plan: CTA 12/16 showing no pulmonary emboli but minimal airspace opacities bilateral lower lobes noted. Patient completed abx; he is feeling better today. CXR 12/29 showing patchy primarily bilateral lower lung zone infiltrates and/or atelectasis. Consider pseudomonas PNA; sputum cx sent. Continue to follow. (3) Acute on chronic renal failure: Code(s): N17.9 - Acute kidney failure, unspecified; N18.9 - Chronic kidney disease, unspecified Status: Acute Assessment and Plan: Cr 1.9 on 12/29 but back down to 1.5 today. Baseline mostly 1.4-1.7. Could be mild VICKEY from ATN related to the hypoxia or maybe becoming more dehydrated. Follow renal function. Continue to hold Lasix for now. (4) Malignant neoplasm of upper lobe, right bronchus or lung: Code(s): C34.11 - Malignant neoplasm of upper lobe, right bronchus or lung Status: Acute Assessment and Plan: CTA Chest 12/16 showing right upper lobe 4.2 cm mass that has doubled in size since July. Patient has a medically inoperable early stage lung cancer reviewed he is not a candidate for surgery or even biopsy due to his severe COPD. He completed course of SBRT from 01/19-02/02/20 and again 09/08-09/15/20. Plans for PET scan in a few weeks. Oncology has seen patient and appreciate their input (5) Atrial fibrillation: Qualifiers: Atrial fibrillation type: unspecified Qualified Code(s): I48.91 - Unspecified atrial fibrillation Code(s): I48.91 - Unspecified atrial fibrillation Status: Acute Assessment and Plan: EKG showed atrial fibrillation with RVR. Patient was on tele and showing persistent AFib with HR mostly below 100 now. Continue Toprol and Cardizem. BP soft at times - watch BP. Not on greenhouse technician anticoagulation due to increased bleeding risk but does take ASA 3 times per week. (6) Type 2 diabetes mellitus with hyperglycemia: Code(s): E11.65 - Type 2 diabetes mellitus with hyperglycemia Status: Acute Assessment and Plan: A1c 6.4. The patient's blood glucose was reviewed on 12/31 Glucose higher related to the steroids. Continue AccuCheks covering with sliding scale. Hypoglycemia protocol available as needed. Continue current medications. Steroid dose decreased to baseline so glucose may improve now. Follow. (7) Compression fracture: Status: Acute Assessment and Plan: Patient developed back pain about 3 weeks ago. No trauma. CTA chest showing new compression fractures of the T5 and T6 vertebral bodies. Increase activity as tolerated. Still weak and may need placement. Continue PT/OT. CC evaluating. Continue heating pad. Continue Parachute for pain. Continue
[2020-12-31 12:03] LABS: Glucose Point of Care 193 (65-105)
--- NOTE | 2020-12-31 12:18 | P.PNPL_ITS ---
Progress Note: A&P Assessment and Plan (1) Pulmonary nodule: Code(s): R91.1 - Solitary pulmonary nodule Status: Acute Assessment and Plan: Patient with a right upper lobe nodule that was not biopsied given the patient's severe panlobular emphysema. This is presumed cancer and he has undergone 2 courses of radiation therapy. Repeat CT scan on this admission from 12/16/2020 compared to 08/08/2020 demonstrate that the nodule has increased in size from 2.1 cm to 4.2 x 4.1 cm. This likely represents progression of his lung cancer. He was scheduled to have a PET scan last week but he was admitted to the [facility] and that will need to be done in the future. Patient to follow-up with oncology. (2) Chronic obstructive pulmonary disease: Qualifiers: COPD type: unspecified COPD Qualified Code(s): J44.9 - Chronic obstructive pulmonary disease, unspecified Code(s): J44.9 - Chronic obstructive pulmonary disease, unspecified Status: Acute Assessment and Plan: 12/29 COPD with chronic hypercarbic respiratory failure on a trilogy noninvasive ventilator at night, 3.5 L oxygen at rest and at night and 4-5 L oxygen with ambulation, pulmonary hypertension with an echocardiogram on August 28, 2018 with an RVSP of 69 presented with a possible pneumonia and COPD exacerbation. Today patient states that he is near his baseline regarding his cough, phlegm production and wheezing. Patient does state that he is much worse regarding his dyspnea on exertion. Regarding the etiology of this worsening dyspnea on exertion I do not think that he has an active pneumonia causing this dyspnea, he is being actively treated for a COPD exacerbation with steroids bronchodilators and finishing antibiotics, he also appears to have recurrence of his right upper lobe lung cancer. He may also be severely deconditioned as he has been lying in bed now since admission on December 16, 2020. His white blood cell count is 11 0.7 1000, he is afebrile and his chest x-ray demonstrates a right upper lobe mass but no focal infiltrates. Patient is scheduled to finish Augmentin today. Agree with aggressive physical therapy and occupational therapy at this time. Patient told me that he wishes to go home as he has 5 daughters that can care for him. I told him I would recommend a 2 week rehabilitation stay as currently he cannot walk. He told me he would rather use a wheelchair. 12/29 Patient is currently on prednisone 40 q.day, trilogy inhaler, levalbuterol and ipratropium nebulizers Q 6. Will continue this regimen for now. Will re- evaluate tomorrow and if he is stable will consider decreasing his dose of prednisone. 12/30 Stable, decreased prednisone to 20 today. Continue trelegy inhaler and levalbuterol and ipratroprium for now. 12/31 Prednisone to 10 today, continue inhalers (3) Chronic respiratory failure with hypoxia and hypercapnia: Code(s): J96.11 - Chronic respiratory failure with hypoxia; J96.12 - Chronic respiratory failure with hypercapnia Status: Acute Assessment and Plan: Patient refused hospital BIPAP until 12/27 and was then placed on Vauto mode. Most recent download from clinic notes from 07/15/2020-11/01/2020. per home health he is usually very copmplinat but was having eye issues and not wearing trilogy Usage greater than or equal to 4 hours was 41.8% of nights. Average use (days used) was 4 hours and 22 minutes. Average EPAP was approximately 10-11 an average IPAP was approximately 20-21, average TV 624, average minute volume9-10 liters. 12/29 Patient is currently on hospital auto Pap and states the machine is working fine for him. Of note last night he took off his BiPAP and had desatura
[2020-12-31 16:48] LABS: Glucose Point of Care 231 (65-105)
[2020-12-31] MEDS: traZODone HCL 50 MG TABLET PO (21:03)
[2020-12-31 23:31] LABS: Glucose Point of Care 208 (65-105)
[2021-01-01] VITALS (14 sets, daily range): BP systolic 95–150; BP diastolic 45–69; PULSE 77–115; RESP 18–22; TEMP 36.9–37.2; O2SAT 89–98
[2021-01-01 05:19] LABS: Alveolar/Arterial O2 Gradient 152.7 mmHg; Device NASAL CANNULA; Fractional Inspired Oxygen 36 %; HCO3 ABG 29.6 mEq/l (22.0-26.0); Oxygen Content ABG 11.9 %vol (16.0-22.0); Oxygen Saturation ABG 88.8 % (95.0-100.0); Oxyhemoglobin 86.9 % THb (90.0-100.0); PCO2 ABG 43.8 mmHg (35.0-45.0); PO2 ABG 53.2 mmHg (80.0-100.0); PO2 FiO2 Ratio Arterial Blood 1.48 %; Site Drawn LEFT BRACHIAL; Total Hemoglobin 9.7 g/dL (12.0-18.0); pH ABG 7.447 (7.350-7.450)
[2021-01-01] MEDS: HYDROcodone/acetaminophen (*CRX) 5-325 MG TABLET 1 TAB PO ×4 (05:23→23:30)
[2021-01-01 06:43] LABS: Hematocrit 27.6 % (42.0-52.0); Hemoglobin 8.7 g/dL (14.0-18.0); Immature Platelet Fraction Pct 6.3 % (0.9-11.2); Mean Corpuscular HGB Conc 31.5 g/dl (32-36); Mean Corpuscular Volume 107.8 fl (80-100); Platelet Count Result 125 k/mm3 (150-375); Red Blood Count 2.56 M/mm3 (4.6-6.20); Red Cell Distribution Width 18.5 % (11.5-14.5); White Blood Count 11.5 K/mm3 (4.5-10.0)
[2021-01-01 07:05] LABS: Anion Gap 1 mmol/L (8-16); Blood Urea Nitrogen 41 mg/dL (9-20); Calcium 8.4 mg/dL (8.4-10.2); Carbon Dioxide 37 mmol/L (22-30); Chloride 97 mmol/L (98-107); Estimated CRCL calculation 44 ml/min; Estimated Glomerular Filt Rate 50; Glucose 134 mg/dL (75-110); Potassium 4.7 mmol/L (3.4-5.0); Sodium 135 mmol/L (137-145)
[2021-01-01] MEDS: IPRATROPIUM BR 0.02% INH SOLN 0.5 MG/2.5 ML VIAL INHALATION ×3 (08:07→20:00)
[2021-01-01] MEDS: FLUTICASONE/UMECLIDIN/VILANTER 100-62.5-25 MCG ELLIPTA 1 PUFF INHALATION (08:07)
[2021-01-01 08:08] LABS: Glucose Point of Care 123 (65-105)
[2021-01-01] MEDS: allopurinoL 300 MG TABLET PO (09:45)
[2021-01-01] MEDS: predniSONE 10 MG TABLET PO (09:46)
[2021-01-01] MEDS: ASPIRIN 325 MG TABLET PO (09:46)
[2021-01-01] MEDS: ASCORBIC ACID 500 MG TABLET BY MOUTH (09:47)
[2021-01-01] MEDS: ATORVASTATIN 40 MG TABLET PO (09:47)
[2021-01-01] MEDS: guaiFENesin 12 HR 600 MG TABCR PO ×2 (09:48→20:22)
[2021-01-01] MEDS: LIDOCAINE 5% PATCH 2 PATCH TRANSDERM (09:48)
[2021-01-01] MEDS: METOPROLOL SUCCINATE EXT REL 100 MG TABCR PO ×2 (09:49→20:22)
[2021-01-01] MEDS: PANTOPRAZOLE SOD SESQUIHYDRATE 20 MG TAB PO (09:49)
[2021-01-01] MEDS: OMEGA 3 POLYUNSAT FATTY ACIDS 1 GM CAP PO ×4 (09:49→20:22)
[2021-01-01] MEDS: TAMSULOSIN HCL 0.4 MG CAPSULE PO (11:05)
[2021-01-01 11:21] LABS: Glucose Point of Care 130 (65-105)
--- NOTE | 2021-01-01 11:22 | PM.PNPUL ---
Progress Note: A&P Assessment and Plan (1) Pulmonary nodule: Code(s): R91.1 - Solitary pulmonary nodule Status: Acute Assessment and Plan: Patient with a right upper lobe nodule that was not biopsied given the patient's severe panlobular emphysema. This is presumed cancer and he has undergone 2 courses of radiation therapy. Repeat CT scan on this admission from 12/16/2020 compared to 08/08/2020 demonstrate that the nodule has increased in size from 2.1 cm to 4.2 x 4.1 cm. This likely represents progression of his lung cancer. He was scheduled to have a PET scan last week but he was admitted to the hospital and that will need to be done in the future. Patient to follow-up with oncology. (2) Chronic obstructive pulmonary disease: Qualifiers: COPD type: unspecified COPD Qualified Code(s): J44.9 - Chronic obstructive pulmonary disease, unspecified Code(s): J44.9 - Chronic obstructive pulmonary disease, unspecified Status: Acute Assessment and Plan: 12/29 COPD with chronic hypercarbic respiratory failure on a trilogy noninvasive ventilator at night, 3.5 L oxygen at rest and at night and 4-5 L oxygen with ambulation, pulmonary hypertension with an echocardiogram on August 28, 2018 with an RVSP of 69 presented with a possible pneumonia and COPD exacerbation. Today patient states that he is near his baseline regarding his cough, phlegm production and wheezing. Patient does state that he is much worse regarding his dyspnea on exertion. Regarding the etiology of this worsening dyspnea on exertion I do not think that he has an active pneumonia causing this dyspnea, he is being actively treated for a COPD exacerbation with steroids bronchodilators and finishing antibiotics, he also appears to have recurrence of his right upper lobe lung cancer. He may also be severely deconditioned as he has been lying in bed now since admission on December 16, 2020. His white blood cell count is 11 0.7 1000, he is afebrile and his chest x-ray demonstrates a right upper lobe mass but no focal infiltrates. Patient is scheduled to finish Augmentin today. Agree with aggressive physical therapy and occupational therapy at this time. Patient told me that he wishes to go home as he has 5 daughters that can care for him. I told him I would recommend a 2 week rehabilitation stay as currently he cannot walk. He told me he would rather use a wheelchair. 12/29 Patient is currently on prednisone 40 q.day, trilogy inhaler, levalbuterol and ipratropium nebulizers Q 6. Will continue this regimen for now. Will re-evaluate tomorrow and if he is stable will consider decreasing his dose of prednisone. 12/30 Stable, decreased prednisone to 20 today. Continue trelegy inhaler and levalbuterol and ipratroprium for now. 12/31 Prednisone to 10 today, continue inhalers 01/01 Prednisone 10 today, continue inhalers. (3) Chronic respiratory failure with hypoxia and hypercapnia: Code(s): J96.11 - Chronic respiratory failure with hypoxia; J96.12 - Chronic respiratory failure with hypercapnia Status: Acute Assessment and Plan: Patient refused hospital BIPAP until 12/27 and was then placed on Vauto mode. Most recent download from clinic notes from 07/15/2020-11/01/2020. per home health he is usually very copmplinat but was having eye issues and not wearing trilogy Usage greater than or equal to 4 hours was 41.8% of nights. Average use (days used) was 4 hours and 22 minutes. Average EPAP was approximately 10-11 an average IPAP was approximately 20-21, average TV 624, average minute volume9-10 liters. 12/29 Patient is currently on hospital auto Pap and states the machine is working fine for him. Of note last night he took off his BiPAP and had desaturate is a shins with a blood gas of 7.47/48/89 on 10 L high flow. I have instructed the patient to have his family bring in his home noninvasive ventilator for use in the hospital. 12/30 Patient Wore ho
--- NOTE | 2021-01-01 11:24 | PM.IMPN ---
Progress Note: A&P Assessment and Plan (1) Sepsis: Code(s): A41.9 - Sepsis, unspecified organism Status: Acute Assessment and Plan: Sepsis with septicemia on admission with lactic acidosis, leukocytosis with left shift and tachycardia. [place] related to the pneumonia and septicemia. BCx drawn 12/16/20 positive for gram-positive cocci in chains in anaerobic bottle only; 1 set grew Streptococcus gallolyticus, and 1 set grew Granulicatella adiacens and CN Staph. Abx changed to Unasyn on 12/18; Vanco was continued. Repeat blood cultures on 12/19 negative. Colonoscopy 12/21 with adenomatous polyps only with no malignancy or high grade dysplasia. Echo no vegetations but with pulm HTN 64 and decreased RV function. Discussed with ID and vanco and Unasyn stopped 12/26 and changed to Augmentin with last dose 12/29/20. White count up due to steroids but back down now. Sputum noted (see below). No further workup recommended. Appreciate ID input. (2) Pneumonia: Qualifiers: Laterality: bilateral Lung location: lower lobe of lung Pneumonia type: due to unspecified organism Qualified Code(s): J18.9 - Pneumonia, unspecified organism Code(s): J18.9 - Pneumonia, unspecified organism Status: Acute Assessment and Plan: CTA 12/16 showing no pulmonary emboli but minimal airspace opacities bilateral lower lobes noted. Patient completed abx; he is feeling better today. CXR 12/29 showing patchy primarily bilateral lower lung zone infiltrates and/or atelectasis. Sputum sent because of increase sputum production and patient not feeling well. His condition has improved and cough better but sputum now growing pseudomonas. Levaquin started but discussed with pulmonary who felt this should be held for now; Levaquin stopped. Will continue to follow clinically. (3) Acute on chronic renal failure: Code(s): N17.9 - Acute kidney failure, unspecified; N18.9 - Chronic kidney disease, unspecified Status: Acute Assessment and Plan: Cr 1.9 on 12/29 but back down to 1.4 today. Baseline mostly 1.4-1.7. Could be mild VICKEY from ATN related to the hypoxia or maybe becoming more dehydrated. Follow renal function. Continue to hold Lasix for now. (4) Malignant neoplasm of upper lobe, right bronchus or lung: Code(s): C34.11 - Malignant neoplasm of upper lobe, right bronchus or lung Status: Acute Assessment and Plan: CTA Chest 12/16 showing right upper lobe 4.2 cm mass that has doubled in size since July. Patient has a medically inoperable early stage lung cancer reviewed he is not a candidate for surgery or even biopsy due to his severe COPD. He completed course of SBRT from 01/19-02/02/20 and again 09/08-09/15/20. Plans for PET scan in a few weeks. Oncology has seen patient and appreciate their input (5) Atrial fibrillation: Qualifiers: Atrial fibrillation type: unspecified Qualified Code(s): I48.91 - Unspecified atrial fibrillation Code(s): I48.91 - Unspecified atrial fibrillation Status: Acute Assessment and Plan: EKG showed atrial fibrillation with RVR. Patient was on tele and showing persistent AFib with HR mostly below 100 mostly. Continue Toprol and Cardizem. BP soft at times - watch BP. Not on long filler cigar roller machine anticoagulation due to increased bleeding risk but does take ASA 3 times per week. (6) Type 2 diabetes mellitus with hyperglycemia: Code(s): E11.65 - Type 2 diabetes mellitus with hyperglycemia Status: Acute Assessment and Plan: A1c 6.4. The patient's blood glucose was reviewed on 01/01. Steroid dose has been decreased to baseline now. Glucose was higher related to the increase in steroids but glucose better since steroids weaned. Continue AccuCheks covering with sliding scale. Hypoglycemia protocol available as needed. Continue current medications. Follow. (7) Compression fracture: Status: Acute Asse
[2021-01-01] MEDS: KETOROLAC 15 MG/ML VIAL (*BKC) IV PUSH (13:05)
--- NOTE | 2021-01-01 15:09 | PCPTNOTE ---
Patient due for PT re-eval...attempted to see patient...supine in bed on bi-pap...he declined therapy today, saying he was too weak ...will see tomorrow as able
[2021-01-01 17:45] LABS: Glucose Point of Care 169 (65-105)
[2021-01-01] MEDS: BISACODYL 5 MG TABLET EC PO (19:23)
[2021-01-01] MEDS: traZODone HCL 50 MG TABLET PO (20:22)
[2021-01-01 21:15] LABS: Glucose Point of Care 160 (65-105)
[2021-01-02 02:13] VITALS: PULSE 78; PULSE 88; RESP 15; O2SAT 88
[2021-01-02] MEDS: IPRATROPIUM BR 0.02% INH SOLN 0.5 MG/2.5 ML VIAL INHALATION ×2 (02:13→09:51)
[2021-01-02 02:24] VITALS: PULSE 87; RESP 17
[2021-01-02] MEDS: HYDROcodone/acetaminophen (*CRX) 5-325 MG TABLET 1 TAB PO ×2 (05:44→11:32)
[2021-01-02 06:00] VITALS: BP 132/97; PULSE 88; RESP 24; TEMP 36.4; O2SAT 94
[2021-01-02 06:36] LABS: Alveolar/Arterial O2 Gradient 175.2 mmHg; Base Excess ABG 4.3 mEq/l (+/-2.0); Carboxyhemoglobin 0.2 % THb (0-2.0); Fractional Inspired Oxygen 40 %; HCO3 ABG 28.9 mEq/l (22.0-26.0); Methemoglobin ABG 0.3 %THb (0-1.5); Oxygen Content ABG 12.3 %vol (16.0-22.0); Oxygen Saturation ABG 91.9 % (95.0-100.0); Oxyhemoglobin 89.7 % THb (90.0-100.0); PCO2 ABG 43.3 mmHg (35.0-45.0); PO2 ABG 60.2 mmHg (80.0-100.0); Reduced Hemoglobin 9.8 %THb (0-5.0); Total Hemoglobin 9.7 g/dL (12.0-18.0); pH ABG 7.442 (7.350-7.450)
[2021-01-02 06:37] LABS: Non-Invasive Vent Rate 8 /MIN; Site Drawn RIGHT BRACHIAL
[2021-01-02 06:38] LABS: Device NON-INVASIVE VENT
[2021-01-02 06:39] VITALS: PULSE 112; RESP 24; O2SAT 94
--- NOTE | 2021-01-02 06:43 | PCRCNOTE ---
CALLED TO PT ROOM FOR SPO2 IN THE 70'S ON HOME TRILOGY WITH 6LPM OXYGEN BLEED IN. IMMEDIATELY PLACED PT ON V60 WITH HOME SETTINGS AND 100% FIO2. ABLE TO WEAN OXYGEN TO 40% FOR SPO2 94%. AN ABG WAS DRAWN PER PULMONOLOGY.
--- NOTE | 2021-01-02 07:20 | P.PNCROSS_ITS ---
Event Note Event Note Event Note: I was called by nursing staff at 05:50. Nursing staff arrived in the room to find the patient desatting to the mid 70s on his home trilogy with 6 L of bleed in O2. The patient was in respiratory distress in was quite uncomfortable. As I understood it who could not increase the oxygen flow through the patient's home trilogy. Nursing staff was: For recommendations as to ventilator settings. I was not comfortable providing recommendations on and requested that nursing staff call inventory assistant that was consulted on the case. He ordered an ABG and chest x-ray. I was already headed to the patient's room to evaluate the patient. When I arrived to the room respiratory therapy had already switch the patient to a V60 with setting similar to his home settings. The patient was initially on 100% FiO2 but was quickly weaned down to 40% FiO2 maintaining sats of 94%. The patient's respiratory rate had improved down to the low 20s and his heart rate had improved down to the low 100s. The patient reports feeling better. the patient has been wearing his trilogy around the clock since his family brought the device to the hospital. 30 minutes spent in critical care activities. This case had a high probability of a clinically significant, sudden, or life threatening deterioration of this patient's condition which required my full and direct attention, intervention and personal management.
--- NOTE | 2021-01-02 07:32 | PC.NURSE ---
This nurse was called to patient room at 0555 by TECHNICAL SERVICES MANAGER to report that the patient's o2 sat was only at 76%. Rolanda RT was called by this RN as the patient was discussed earlier in the shift. Dr. Trotter was called and requested for me to call pulmonology as they were consulted on this case. I called Dr. Jack Cobian who was the planning consultant steam pan sponger who suggested to call the hospitalist because he was not in the building to evaluate the patient. At this time however, a telephone order was obtained from Dr. Cobian for a stat ABG and Chest X-ray. This nurse then called Dr. Trotter and Dr. Trotter said she would come up to the floor to evaluate the patient. Rolanda from RT returned to the floor with a bipap and patient was placed on a bipap. O2 saturation saud to 96% on bipap. Dr. Trotter arrived to the room to evaluate the patient.
[2021-01-02 07:49] LABS: D Dimer 2.68 ug/mL (<0.48)
[2021-01-02 08:00] VITALS: O2SAT 94
[2021-01-02] MEDS: allopurinoL 300 MG TABLET PO (08:33)
[2021-01-02] MEDS: ATORVASTATIN 40 MG TABLET PO (08:33)
[2021-01-02] MEDS: ASCORBIC ACID 500 MG TABLET BY MOUTH (08:33)
[2021-01-02] MEDS: guaiFENesin 12 HR 600 MG TABCR PO (08:34)
[2021-01-02 08:36] VITALS: PULSE 112
[2021-01-02] MEDS: OMEGA 3 POLYUNSAT FATTY ACIDS 1 GM CAP PO (08:36)
[2021-01-02] MEDS: LIDOCAINE 5% PATCH 2 PATCH TRANSDERM (08:36)
[2021-01-02] MEDS: METOPROLOL SUCCINATE EXT REL 100 MG TABCR PO (08:36)
[2021-01-02] MEDS: TAMSULOSIN HCL 0.4 MG CAPSULE PO (08:37)
[2021-01-02] MEDS: PANTOPRAZOLE SOD SESQUIHYDRATE 20 MG TAB PO (08:37)
[2021-01-02] MEDS: BISACODYL 5 MG TABLET EC PO (08:38)
--- NOTE | 2021-01-02 08:38 | PM.IMPN ---
Progress Note: A&P Assessment and Plan (1) Acute respiratory failure: Code(s): J96.00 - Acute respiratory failure, unspecified whether with hypoxia or hypercapnia Status: Acute Assessment and Plan: Patient with acute respiratory failure on home trilogy. Recovering on hosp bipap now. He feels better. ABG noted. Doubt PE but CTA ordered. Doubt infectious related or COPD flare. Discussed hospice with patient and he would like to consider this now. He does not want to be intubated. He allowed me to contact his dtr but no answer and mailbox was full. Move to IMU and continue current treatment plan. Provide info about hospice (2) Chronic respiratory failure with hypoxia and hypercapnia: Code(s): J96.11 - Chronic respiratory failure with hypoxia; J96.12 - Chronic respiratory failure with hypercapnia Status: Acute Assessment and Plan: Patient has chronic respiratory failure on home O2 at 3L at rest and 4L with activity and uses Trilogy at night. As above. (3) Chronic obstructive pulmonary disease: Qualifiers: COPD type: unspecified COPD Qualified Code(s): J44.9 - Chronic obstructive pulmonary disease, unspecified Code(s): J44.9 - Chronic obstructive pulmonary disease, unspecified Status: Acute Assessment and Plan: Patient has chronic respiratory failure on home O2 at 3L at rest and 4L with activity and uses Trilogy at night. Patient is steroid dependent. Concern for COPD exacerbation so 1 dose of Solu-Medrol given 12/28/20 and we increased his oral prednisone for few days but now back down to his baseline pred dose. Continue nebulizer treatments. (4) Sepsis: Code(s): A41.9 - Sepsis, unspecified organism Status: Acute Assessment and Plan: Sepsis with septicemia on admission with lactic acidosis, leukocytosis with left shift and tachycardia. [place] related to the pneumonia and septicemia. BCx drawn 12/16/20 positive for gram-positive cocci in chains in anaerobic bottle only; 1 set grew Streptococcus gallolyticus, and 1 set grew Granulicatella adiacens and CN Staph. Abx changed to Unasyn on 12/18; Vanco was continued. Repeat blood cultures on 12/19 negative. Colonoscopy 12/21 with adenomatous polyps only with no malignancy or high grade dysplasia. Echo no vegetations but with pulm HTN 64 and decreased RV function. Discussed with ID and vanco and Unasyn stopped 12/26 and changed to Augmentin with last dose 12/29/20. White count up due to steroids but back down now. Sputum noted (see below). No further workup recommended. Appreciate ID input. (5) Pneumonia: Qualifiers: Laterality: bilateral Lung location: lower lobe of lung Pneumonia type: due to unspecified organism Qualified Code(s): J18.9 - Pneumonia, unspecified organism Code(s): J18.9 - Pneumonia, unspecified organism Status: Acute Assessment and Plan: CTA 12/16 showing no pulmonary emboli but minimal airspace opacities bilateral lower lobes noted. Patient completed abx; he is feeling better today. CXR 12/29 showing patchy primarily bilateral lower lung zone infiltrates and/or atelectasis. Sputum sent because of increase sputum production and patient not feeling well. His condition has improved and cough better but sputum now growing pseudomonas. Levaquin started but discussed with pulmonary who felt this should be held for now; Levaquin stopped. Don't feel this change related to infectious etiology - more likely related to the settings to his trilogy. As above. (6) Acute on chronic renal failure: Code(s): N17.9 - Acute kidney failure, unspecified; N18.9 - Chronic kidney disease, unspecified Status: Acute Assessment and Plan: Cr 1.9 on 12/29 but back down to 1.4 yesterday. Baseline mostly 1.4-1.7. Could be mild VICKEY from ATN related to the hypoxia or maybe becoming more dehydrated. Follow renal function. Continue to hold Lasix for now.
[2021-01-02 08:57] LABS: Anion Gap 7 mmol/L (8-16); Blood Urea Nitrogen 44 mg/dL (9-20); Carbon Dioxide 29 mmol/L (22-30); Chloride 100 mmol/L (98-107); Estimated CRCL calculation 39 ml/min; Estimated Glomerular Filt Rate 43; Glucose 133 mg/dL (75-110); Potassium 4.9 mmol/L (3.4-5.0); Sodium 136 mmol/L (137-145)
[2021-01-02 09:28] LABS: Glucose Point of Care 131 (65-105)
[2021-01-02 09:29] LABS: Basophils Percent Auto 0.2 % (0.2-1.2); Eosinophils Percent Auto 0.1 % (0-4.4); Hematocrit 28.6 % (42.0-52.0); Hemoglobin 8.8 g/dL (14.0-18.0); Immature Granulocyte Percent A 2.3 % (0-0.5); Immature Platelet Fraction Pct 6.7 % (0.9-11.2); Lymphocytes Absolute Auto 0.18 K/mm3 (0.9-3.2); Lymphocytes Percent Auto 1.4 % (18.3-44.2); Mean Corpuscular HGB Conc 30.8 g/dl (32-36); Mean Corpuscular Hemoglobin 33.6 pg (26-34); Mean Corpuscular Volume 109.2 fl (80-100); Mean Platelet Volume 11.6 fl (7.4-10.4); Monocytes Absolute Auto 0.6 K/mm3 (0.1-0.6); Monocytes Percent Auto 4.6 % (2.6-8.5); Neutrophils Absolute Auto 12.1 K/mm3 (1.3-6.7); Neutrophils Percent Auto 91.4 % (45.5-73.1); Nucleated Red Blood Cells Perc 0.2 % (0.0-0.2); Platelet Count Result 123 k/mm3 (150-375); Red Blood Count 2.62 M/mm3 (4.6-6.20); Red Cell Distribution Width 18.7 % (11.5-14.5); White Blood Count 13.2 K/mm3 (4.5-10.0)
[2021-01-02 10:19] LABS: Anisocytosis 2+ (NORMAL); Platelet Estimate Decreased (Adequate)
--- NOTE | 2021-01-02 10:21 | PM.PNPUL ---
Progress Note: A&P Assessment and Plan (1) Pulmonary nodule: Code(s): R91.1 - Solitary pulmonary nodule Status: Acute Assessment and Plan: Patient with a right upper lobe nodule that was not biopsied given the patient's severe panlobular emphysema. This is presumed cancer and he has undergone 2 courses of radiation therapy. Repeat CT scan on this admission from 12/16/2020 compared to 08/08/2020 demonstrate that the nodule has increased in size from 2.1 cm to 4.2 x 4.1 cm. This likely represents progression of his lung cancer. He was scheduled to have a PET scan last week but he was admitted to the hospital and that will need to be done in the future. Patient to follow-up with oncology. (2) Chronic obstructive pulmonary disease: Qualifiers: COPD type: unspecified COPD Qualified Code(s): J44.9 - Chronic obstructive pulmonary disease, unspecified Code(s): J44.9 - Chronic obstructive pulmonary disease, unspecified Status: Acute Assessment and Plan: 12/29 COPD with chronic hypercarbic respiratory failure on a trilogy noninvasive ventilator at night, 3.5 L oxygen at rest and at night and 4-5 L oxygen with ambulation, pulmonary hypertension with an echocardiogram on August 28, 2018 with an RVSP of 69 presented with a possible pneumonia and COPD exacerbation. Today patient states that he is near his baseline regarding his cough, phlegm production and wheezing. Patient does state that he is much worse regarding his dyspnea on exertion. Regarding the etiology of this worsening dyspnea on exertion I do not think that he has an active pneumonia causing this dyspnea, he is being actively treated for a COPD exacerbation with steroids bronchodilators and finishing antibiotics, he also appears to have recurrence of his right upper lobe lung cancer. He may also be severely deconditioned as he has been lying in bed now since admission on December 16, 2020. His white blood cell count is 11 0.7 1000, he is afebrile and his chest x-ray demonstrates a right upper lobe mass but no focal infiltrates. Patient is scheduled to finish Augmentin today. Agree with aggressive physical therapy and occupational therapy at this time. Patient told me that he wishes to go home as he has 5 daughters that can care for him. I told him I would recommend a 2 week rehabilitation stay as currently he cannot walk. He told me he would rather use a wheelchair. 12/29 Patient is currently on prednisone 40 q.day, trilogy inhaler, levalbuterol and ipratropium nebulizers Q 6. Will continue this regimen for now. Will re-evaluate tomorrow and if he is stable will consider decreasing his dose of prednisone. 12/30 Stable, decreased prednisone to 20 today. Continue trelegy inhaler and levalbuterol and ipratroprium for now. 12/31 Prednisone to 10 today, continue inhalers 01/01 Prednisone 10 today, continue inhalers. 01/02 Worsening SOB with steroid wean, placed on solumedrol 40 Q 6. CXR no evidence of focal pneumonia. Unable to have CT angiogram as Cr 1.6. Now DNI and to talk to hospice. (3) Chronic respiratory failure with hypoxia and hypercapnia: Code(s): J96.11 - Chronic respiratory failure with hypoxia; J96.12 - Chronic respiratory failure with hypercapnia Status: Acute Assessment and Plan: Patient refused hospital BIPAP until 12/27 and was then placed on Vauto mode. Most recent download from clinic notes from 07/15/2020-11/01/2020. per home health he is usually very copmplinat but was having eye issues and not wearing trilogy Usage greater than or equal to 4 hours was 41.8% of nights. Average use (days used) was 4 hours and 22 minutes. Average EPAP was approximately 10-11 an average IPAP was approximately 20-21, average TV 624, average minute volume9-10 liters. 12/29 Patient is currently on hospital auto Pap and states the machine is working fine for him. Of note last night he took off his BiPAP and had desaturate is a shins with a blood
--- NOTE | 2021-01-02 13:36 | PM.DS ---
DS: Admitting Diagnosis Admitting Diagnosis Admitting Diagnosis: shortness of breath DS: Discharge Diagnosis Discharge Diagnosis (1) Acute respiratory failure: Code(s): J96.00 - Acute respiratory failure, unspecified whether with hypoxia or hypercapnia Status: Acute Assessment and Plan: Patient developed acute respiratory failure on home trilogy the night before discharge. He was switched to the hospital BiPAP and was able to recover. Doubt PE. Doubt infectious related or COPD flare. Discussed hospice with patient and he would like to consider this now. He does not want to be intubated. He allowed me to contact his dtr but no answer and mailbox was full. Information provided to the patient by [employer]er [employer]per and he has agreed to hospice. Patient was discharged to inpatient hospice. (2) Chronic respiratory failure with hypoxia and hypercapnia: Code(s): J96.11 - Chronic respiratory failure with hypoxia; J96.12 - Chronic respiratory failure with hypercapnia Status: Acute Assessment and Plan: Patient has chronic respiratory failure on home O2 at 3L at rest and 4L with activity and uses Trilogy at night. As above. (3) Chronic obstructive pulmonary disease: Qualifiers: COPD type: unspecified COPD Qualified Code(s): J44.9 - Chronic obstructive pulmonary disease, unspecified Code(s): J44.9 - Chronic obstructive pulmonary disease, unspecified Status: Acute Assessment and Plan: Patient has chronic respiratory failure on home O2 at 3L at rest and 4L with activity and uses Trilogy at night. Patient is steroid dependent. There was concern for COPD exacerbation so 1 dose of Solu-Medrol given 12/28/20 and we increased his oral prednisone for few days but able to wean back down to his baseline prednisone dose. Continue nebulizer treatments. (4) Sepsis: Code(s): A41.9 - Sepsis, unspecified organism Status: Acute Assessment and Plan: Sepsis with septicemia on admission with lactic acidosis, leukocytosis with left shift and tachycardia. [place] related to the pneumonia and septicemia. BCx drawn 12/16/20 positive for gram-positive cocci in chains in anaerobic bottle only; 1 set grew Streptococcus gallolyticus, and 1 set grew Granulicatella adiacens and CN Staph. Abx changed to Unasyn on 12/18; Vanco was continued. Repeat blood cultures on 12/19 negative. Colonoscopy 12/21 with adenomatous polyps only with no malignancy or high grade dysplasia. Echo no vegetations but with pulm HTN 64 and decreased RV function. Discussed with ID and vanco and Unasyn stopped 12/26 and changed to Augmentin with last dose 12/29/20. White count up due to steroids but back down now. Sputum noted (see below). No further workup recommended. Appreciate ID input. (5) Pneumonia: Qualifiers: Laterality: bilateral Lung location: lower lobe of lung Pneumonia type: due to unspecified organism Qualified Code(s): J18.9 - Pneumonia, unspecified organism Code(s): J18.9 - Pneumonia, unspecified organism Status: Acute Assessment and Plan: CTA 12/16 showing no pulmonary emboli but minimal airspace opacities bilateral lower lobes noted. Patient completed abx; he is feeling better today. CXR 12/29 showing patchy primarily bilateral lower lung zone infiltrates and/or atelectasis. Sputum sent because of increase sputum production and patient not feeling well. His condition has improved and cough better but sputum now growing pseudomonas. Levaquin started but discussed with pulmonary who felt this should be held for now; Levaquin stopped. Don't feel this change related to infectious etiology - more likely related to the settings to his trilogy. As above. (6) Acute on chronic renal failure: Code(s): N17.9 - Acute kidney failure, unspecified; N18.9 - Chronic kidney disease, unspecified Status: Acute Assessment and Plan: Cr 1.9 on 12/29 but ba
== END 2021-01-02 11:00 | disposition hospice, inpatient (51) | DRG 871 ==
LOC: ANHED 19:49 → ANH3MEDSUR 12-17 00:19
PROVIDERS: Emergency Medicine; Internal Medicine; Internal Medicine Gastroenterology; Internal Medicine Hematology & Oncology; Internal Medicine Pulmonary Disease; Nurse Practitioner; Physician Assistant; Admitting Provider Internal Medicine; Emergency Provider Emergency Medicine; PCP Family Medicine; Visit Provider Internal Medicine
PROC: 0DJD8ZZ Inspection of Lower Intestinal Tract, Via Natural or Artificial Opening Endoscopic (ICD-10-PCS; CPT 45378; principal; 2020-12-21 11:15)
PROC: 0DJ08ZZ Inspection of Upper Intestinal Tract, Via Natural or Artificial Opening Endoscopic (ICD-10-PCS; CPT 43235; principal; 2020-12-28 12:45)
DX: A41.9 Sepsis, unspecified organism (principal); J18.9 Pneumonia, unspecified organism; J96.21 Acute and chronic respiratory failure with hypoxia; C34.11 Malignant neoplasm of upper lobe, right bronchus or lung; E87.2 Acidosis; I50.42 Chronic combined systolic (congestive) and diastolic (congestive) heart failure; J96.12 Chronic respiratory failure with hypercapnia; I48.20 Chronic atrial fibrillation, unspecified; M48.54XA Collapsed vertebra, not elsewhere classified, thoracic region, initial encounter for fracture; K92.2 Gastrointestinal hemorrhage, unspecified; N17.9 Acute kidney failure, unspecified; D69.6 Thrombocytopenia, unspecified; J43.1 Panlobular emphysema; Z20.822 Contact with and (suspected) exposure to COVID-19; D64.9 Anemia, unspecified; K31.7 Polyp of stomach and duodenum; K44.9 Diaphragmatic hernia without obstruction or gangrene; D12.2 Benign neoplasm of ascending colon; D12.3 Benign neoplasm of transverse colon; R91.1 Solitary pulmonary nodule; E11.65 Type 2 diabetes mellitus with hyperglycemia; Z99.81 Dependence on supplemental oxygen; G47.33 Obstructive sleep apnea (adult) (pediatric); E11.22 Type 2 diabetes mellitus with diabetic chronic kidney disease; N18.30 Chronic kidney disease, stage 3 unspecified; I27.20 Pulmonary hypertension, unspecified; E78.2 Mixed hyperlipidemia; M10.9 Gout, unspecified; Z66 Do not resuscitate; Z79.82 Long term (current) use of aspirin; Z79.84 Long term (current) use of oral hypoglycemic drugs; Z79.899 Other long term (current) drug therapy; Z85.048 Personal history of other malignant neoplasm of rectum, rectosigmoid junction, and anus; Z87.891 Personal history of nicotine dependence; Z92.21 Personal history of antineoplastic chemotherapy; Z92.3 Personal history of irradiation; Z93.3 Colostomy status; Z98.42 Cataract extraction status, left eye
CPT/HCPCS: 36415; 36430; 36600; 71045; 71275; 74176; 80048; 80053; 80069; 80076; 80202; 82274; 82375; 82607; 82728; 82746; 82805; 82948; 83036; 83050; 83605; 83615; 83735; 83880; 84100; 84484; 85014; 85018; 85025; 85027; 85055; 85380; 85610; 85730; 86140; 86850; 86900; 86901; 86920; 87040; 87070; 87077; 87186; 87205; 87804; 88305; 93005; 93306; 94002; 94003; 94640; 94660; 94667; 96365; 96375; 97110; 97116; 97161; 97165; 97530; 99285; A9270; C9803; J0295; J0456; J0696; J1650; J1815; J1885; J2370; J2704; J2930; J3370; J3475; J7030; J7040; J7050; J7120; J7512; P9016; Q9967; U0003; U0005

== ENCOUNTER 2021-01-02 11:30 | HOS | payer OTHER, MEDICARE, SELFPAY ==
[2021-01-02] MEDS: HYDROmorphone HCL INJ (*CRX) 1 MG/ML SYR IV PUSH (12:33)
[2021-01-02] MEDS: LORazepam INJ (*CRX) 2 MG/ML VIAL 1 MG IV PUSH (12:43)
[2021-01-02] MEDS: HYDROmorphone HCL/PF (*CRX) 50 MG in SODIUM CHLORIDE 0.9% IV 95 ML IV CONT (13:46)
[2021-01-02 14:00] VITALS: BP 86/49; PULSE 50; RESP 16; TEMP 36.9; O2SAT 95
[2021-01-02 14:18] VITALS: BMI 24.2
[2021-01-02 14:25] VITALS: O2SAT 88
[2021-01-02 20:00] VITALS: BP 92/51; PULSE 96; RESP 20; TEMP 37.1; O2SAT 90
[2021-01-02 22:03] VITALS: O2SAT 91
[2021-01-03 06:00] VITALS: BP 128/66; PULSE 113; RESP 22; TEMP 37.5; O2SAT 94
[2021-01-03] MEDS: LORazepam INJ (*CRX) 2 MG/ML VIAL 1 MG IV PUSH ×2 (08:12→21:31)
[2021-01-03 08:20] VITALS: O2SAT 89
[2021-01-03 09:17] VITALS: O2SAT 91
[2021-01-03] MEDS: HYDROmorphone HCL/PF (*CRX) 50 MG in SODIUM CHLORIDE 0.9% IV 95 ML IV CONT (13:22)
[2021-01-03 14:39] VITALS: BP 119/46; PULSE 68; RESP 22; TEMP 36.6; O2SAT 92
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
[2021-01-03 20:00] VITALS: O2SAT 92
[2021-01-03 22:00] VITALS: BP 97/67; PULSE 140; RESP 20; TEMP 37.6; O2SAT 89
[2021-01-04] MEDS: LORazepam INJ (*CRX) 2 MG/ML VIAL 1 MG IV PUSH ×2 (06:35→11:10)
[2021-01-04 07:05] VITALS: BP 119/68; PULSE 106; RESP 28; TEMP 36.6
[2021-01-04] MEDS: HYDROmorphone HCL INJ (*CRX) 1 MG/ML SYR IV PUSH (08:36)
[2021-01-04 08:37] VITALS: O2SAT 98
[2021-01-04 11:18] VITALS: O2SAT 80
[2021-01-04] MEDS: HYDROmorphone HCL/PF (*CRX) 50 MG in SODIUM CHLORIDE 0.9% IV 95 ML IV CONT (13:10)
[2021-01-04] MEDS: HYDROmorphone HCL INJ (*CRX) 1 MG/ML SYR 2 MG IV PUSH (13:21)
[2021-01-04 14:00] VITALS: BP 71/46; PULSE 106; RESP 16; TEMP 37; O2SAT 84
--- NOTE | 2021-01-04 18:25 | PM.IMPN ---
Progress Note: A&P Assessment and Plan (1) Palliative care by specialist: Code(s): Z51.5 - Encounter for palliative care Status: Acute Assessment and Plan: In each general inpatient criteria due to uncontrolled dyspnea requiring continuous IV hydromorphone for control and now too unstable to transfer Remainder palliative regimen as ordered (2) Acute and chronic respiratory failure: Qualifiers: Respiratory failure complication: hypoxia and hypercapnia Qualified Code(s): J96.21 - Acute and chronic respiratory failure with hypoxia; J96.22 - Acute and chronic respiratory failure with hypercapnia Code(s): J96.20 - Acute and chronic respiratory failure, unspecified whether with hypoxia or hypercapnia Status: Acute (3) Acute on chronic renal failure: Qualifiers: Acute renal failure type: unspecified Chronic kidney disease stage: stage 3 (moderate) Chronic kidney disease stage 3 subtype: unspecified whether 3a or 3b Qualified Code(s): N17.9 - Acute kidney failure, unspecified; N18.30 - Chronic kidney disease, stage 3 unspecified Code(s): N17.9 - Acute kidney failure, unspecified; N18.9 - Chronic kidney disease, unspecified Status: Acute (4) Chronic obstructive pulmonary disease: Qualifiers: COPD type: unspecified COPD Qualified Code(s): J44.9 - Chronic obstructive pulmonary disease, unspecified Code(s): J44.9 - Chronic obstructive pulmonary disease, unspecified Status: Acute (5) Type 2 diabetes mellitus with hyperglycemia: Qualifiers: Diabetes mellitus alf insulin use: unspecified moth exterminator insulin use status Qualified Code(s): E11.65 - Type 2 diabetes mellitus with hyperglycemia Code(s): E11.65 - Type 2 diabetes mellitus with hyperglycemia Status: Acute (6) Diastolic congestive heart failure: Qualifiers: Heart failure chronicity: chronic Qualified Code(s): I50.32 - Chronic diastolic (congestive) heart failure Code(s): I50.30 - Unspecified diastolic (congestive) heart failure Status: Acute (7) Persistent atrial fibrillation: Code(s): I48.19 - Other persistent atrial fibrillation Status: Acute Subjective Date/time seen: 01/04/21 18:25 Interval history: 01/04: struggling to breath earlier today. Drip was increased and very comfortable since. Apneas for up to 20 seconds observed by daughter at bedside. Review of Systems Review of Systems: All systems reviewed & are unremarkable except as noted in HPI and below Exam Narrative: Exam Narrative: HEENT: Lips pink NECK: No JVD CHEST: Coarse rhonchi throughout with decreased air movement HEART: NL S1/S2, regular, no murmur ABDOMEN: BS+ but hypoactive, soft, nontender, no mass, no bruits EXTREMITIES: No cyanosis, edema, or clubbing NEUROLOGIC: CN intact and symmetric to inspection. MUSCULOSKELETAL: Tone symmetric PSYCH: Sleeping. Unresponsive to tactile and verbal stimuli. Objective Data Vital Signs Vital Signs: Vital Signs - 24 hr 01/03/21 20:00 01/03/21 22:00 01/04/21 07:05 Temperature 99.7 F H 98 F Pulse Rate 140 H 106 H Respiratory Rate 20 28 H Blood Pressure 97/67 L 119/68 Pulse Oximetry 92 89 L 01/04/21 08:37 01/04/21 11:18 01/04/21 14:00 Temperature 98.6 F Pulse Rate 106 H Respiratory Rate 16 Blood Pressure 71/46 L Pulse Oximetry 98 80 L 84 L Intake/Output Intake/Output: Intake & Output 01/01/21 01/02/21 01/03/21 01/04/21 23:59 23:59 23:59 23:59 Intake Total 142 420 Output Total 700 Balance 142 -280 Meds/Results Medications: Active Medications Generic Name Dose Route Start Last Admin Trade Name Freq PRN Reason Stop Dose Admin Artificial Tears 0 drop 01/02/21 12:45 Artificial Tears Op Soln 15 Ml Bottle EACH EYE Q12H PRN Dry Eye(s) Bisacodyl 10 mg 01/02/21 12:44 Bisacodyl 10 Mg Suppository RECTAL QAM PRN Constipation
[2021-01-04 20:00] VITALS: BP 114/68; PULSE 108; RESP 20; TEMP 36.2; O2SAT 90
[2021-01-05] MEDS: LORazepam INJ (*CRX) 2 MG/ML VIAL 1 MG IV PUSH (07:34)
[2021-01-05 08:00] VITALS: BP 124/93; PULSE 51; RESP 12; TEMP 36.3; O2SAT 93
[2021-01-05 08:01] VITALS: O2SAT 93
[2021-01-05] MEDS: HYDROmorphone HCL/PF (*CRX) 50 MG in SODIUM CHLORIDE 0.9% IV 95 ML IV CONT (13:07)
--- NOTE | 2021-01-06 14:28 | PM.DDS ---
Discharge Sum: Prov Provider Primary care physician: You Box MD Admitting provider: Mane Vasquez MD Discharge Sum: Diag Contributing Factors (1) Acute and chronic respiratory failure: (2) Chronic obstructive pulmonary disease: (3) VICKEY (acute kidney injury): (4) Lower GI bleed: (5) Type 2 diabetes mellitus with hyperglycemia: Discharge Sum: Summary Date and Time Date of admission: 01/02/21 12:16 Summary Details: Admitted to acute care on December 16, 2020, due to acute respiratory failure. He has severe COPD and was using a trilogy unit at home. He was admitted with bibasilar pneumonia. Treated with vancomycin and Unasyn, followed by Augmentin. He had bacteremia. He required noninvasive ventilation during hospitalization. Because of persistent respiratory failure with severe dyspnea at rest and inability to do anything for himself without assistance, he opted for hospice care. Medications were titrated to comfort and patient peacefully. Additional Data Attending physician: Mane Vasquez MD
== END 2021-01-05 13:55 | disposition expired | DRG 951 ==
PROVIDERS: Admitting Provider Internal Medicine; PCP Family Medicine; Visit Provider Internal Medicine
DX: Z51.5 Encounter for palliative care (principal); J96.21 Acute and chronic respiratory failure with hypoxia; J96.22 Acute and chronic respiratory failure with hypercapnia; N17.9 Acute kidney failure, unspecified; I50.32 Chronic diastolic (congestive) heart failure; I48.19 Other persistent atrial fibrillation; C34.11 Malignant neoplasm of upper lobe, right bronchus or lung; K92.2 Gastrointestinal hemorrhage, unspecified; I27.20 Pulmonary hypertension, unspecified; J44.9 Chronic obstructive pulmonary disease, unspecified; Z66 Do not resuscitate; E11.65 Type 2 diabetes mellitus with hyperglycemia; E11.22 Type 2 diabetes mellitus with diabetic chronic kidney disease; N18.30 Chronic kidney disease, stage 3 unspecified; E78.2 Mixed hyperlipidemia; G47.33 Obstructive sleep apnea (adult) (pediatric); Z79.899 Other long term (current) drug therapy; Z87.891 Personal history of nicotine dependence; Z98.42 Cataract extraction status, left eye
CPT/HCPCS: A9270; J1170; J2060